=== PATIENT | female | born 1955 | race Two or more races ===

== ENCOUNTER 2018-07-22 01:44 | Emergency (ER) | payer MEDICAID, OTHER ==
[~2018-07-22] VITALS: Ht 152.4 cm; Wt 81.6 kg
[2018-07-22] MEDS ORDERED: GABAPENTIN 300 MG CAP ONE (01:58)
[2018-07-22 02:01] LABS: Basophils # (auto) 0.1 uL; Basophils % (auto) 1.3 % (0.0-2.0); Eosinophils # (auto) 0.5 uL; Eosinophils % (auto) 8.7 % (0.0-7.0); Hematocrit 41.4 % (36.0-46.0); Hemoglobin 14.1 g/dL (12.2-16.2); Lymphocytes # (auto) 1.2 uL; Lymphocytes % (auto) 19.8 % (10.0-50.0); Mean Corpuscular Hemoglobin 30.3 pg (28.0-32.0); Mean Corpuscular Volume 89.1 fL (80.0-100.0); Monocytes # (auto) 0.6 uL; Monocytes % (auto) 10.6 % (0.0-12.0); Neutrophils # (auto) 3.5 uL; Neutrophils % (auto) 59.6 % (37.0-80.0); Nucleated Red Blood Cells % 0.1 %; Platelet Count (auto) 178 10^3/uL (140-450); Red Blood Cells 4.65 10^6/uL (4.0-5.20); Red Cell Distribution Width 13.5 % (11.8-14.3); White Blood Cell 5.9 10^3/uL (4.4-10.8)
[2018-07-22 02:25] LABS: Albumin 3.5 g/dL (3.4-5.0); BUN/Creatinine Ratio 16.3; Calcium 9.1 mg/dL (8.5-10.1); Potassium 4.1 mmol/L (3.5-5.1)
[2018-07-22 02:27] LABS: Bilirubin, Total 0.2 mg/dL (0.2-1.0); Total Protein 7.7 g/dL (6.4-8.2)
[2018-07-22] MEDS ORDERED: CARISOPRODOL 350 MG TAB PO ONE (06:00)
[2018-07-22 07:20] VITALS: BP 138/75
[2018-07-22] MEDS ORDERED: GABAPENTIN 300 MG CAP PO ONE (07:45)
== END 2018-07-22 08:17 | disposition home or self-care (01) ==
LOC: ER 01:44 → EDBD 01:44 → ER 07:30
DX: R25.2 Cramp and spasm (principal); E11.65 Type 2 diabetes mellitus with hyperglycemia; J45.909 Unspecified asthma, uncomplicated; I10 Essential (primary) hypertension; E11.40 Type 2 diabetes mellitus with diabetic neuropathy, unspecified
CPT/HCPCS: 36415; 80053; 80320; 85025

== ENCOUNTER 2019-05-07 01:04 | Emergency (ER) | payer MEDICAID ==
[~2019-05-07] VITALS: Ht 152.4 cm; Wt 81.6 kg
[2019-05-07] MEDS ORDERED: ONDANSETRON HCL 4 MG/2 ML VIAL IV ONE (03:00)
[2019-05-07] MEDS ORDERED: MORPHINE SULFATE 4 MG/ML SYR/VIAL IV ONE (03:00)
[2019-05-07] MEDS ORDERED: HYDROmorphone HCL 2 MG/ML VL IV ONE (03:15)
[2019-05-07 03:17] LABS: Hematocrit 40.2 % (36.0-46.0); Hemoglobin 13.7 g/dL (12.2-16.2); Mean Corpuscular Hemoglobin 30.2 pg (28.0-32.0); Mean Corpuscular Volume 88.9 fL (80.0-100.0); Platelet Count (auto) 173 10^3/uL (140-450); Red Blood Cells 4.52 10^6/uL (4.0-5.20); Red Cell Distribution Width 13.5 % (11.8-14.3); White Blood Cell 5.2 10^3/uL (4.4-10.8)
[2019-05-07 03:21] LABS: Band Neutrophils % (manual) 0; Basophils % (manual) 0 (0.0-2.0); Blast Cells 0; Metamyelocytes % 0; Myelocytes % 0; Promyelocytes % 0; Reactive Lymphocytes 0
[2019-05-07 03:34] LABS: Eosinophils % (manual) 6 (0-7); Lymphocytes % (manual) 42 (10.0-50.0); Monocytes % (manual) 10 (0-12)
[2019-05-07 03:38] LABS: Albumin 3.3 g/dL (3.4-5.0); Calcium 8.5 mg/dL (8.5-10.1)
[2019-05-07 03:40] LABS: BUN/Creatinine Ratio 12.9; Bilirubin, Total 0.4 mg/dL (0.2-1.0); Total Protein 7.5 g/dL (6.4-8.2)
[2019-05-07 06:28] VITALS: BP 112/68
== END 2019-05-07 08:37 | disposition home or self-care (01) ==
LOC: EDBD 01:04 → ER 01:09
DX: S33.5XXA Sprain of ligaments of lumbar spine, initial encounter (principal); J45.909 Unspecified asthma, uncomplicated; E11.9 Type 2 diabetes mellitus without complications; I10 Essential (primary) hypertension; X50.1XXA Overexertion from prolonged static or awkward postures, initial encounter; Y93.89 Activity, other specified; Y92.89 Other specified places as the place of occurrence of the external cause; Y99.8 Other external cause status
CPT/HCPCS: 36415; 72100; 72131; 80053; 82150; 83690; 85007; 85027; 96374; 96375; 99285; J1170; J2405

== ENCOUNTER 2019-06-27 20:53 | Emergency (ER) | payer MEDICAID ==
[~2019-06-27] VITALS: Ht 152.4 cm; Wt 79.4 kg
[2019-06-28 00:27] VITALS: BP 112/58
== END 2019-06-28 00:38 | disposition home or self-care (01) ==
LOC: ER 21:05
DX: S43.402A Unspecified sprain of left shoulder joint, initial encounter (principal); M79.632 Pain in left forearm; M62.838 Other muscle spasm; J45.909 Unspecified asthma, uncomplicated; I10 Essential (primary) hypertension; E11.9 Type 2 diabetes mellitus without complications; W01.0XXA Fall on same level from slipping, tripping and stumbling without subsequent striking against object, initial encounter; Y93.89 Activity, other specified; Y92.89 Other specified places as the place of occurrence of the external cause; Y99.8 Other external cause status
CPT/HCPCS: 73030; 73090

== ENCOUNTER 2019-07-23 09:06 | Inpatient (IN) | payer MEDICAID ==
[2019-07-23] VITALS (9 sets, daily range): BP systolic 123–163; BP diastolic 60–76
[~2019-07-23] VITALS: Ht 152.4 cm; Wt 92.1 kg
[2019-07-23] MEDS ORDERED: CYCL5TAB PO (09:29)
[2019-07-23] MEDS ORDERED: ASPI-231 PO (09:29)
[2019-07-23] MEDS ORDERED: SIMV-8 PO (09:29)
[2019-07-23] MEDS ORDERED: NIFE1TAB30 PO (09:29)
[2019-07-23] MEDS ORDERED: CHOL20007 PO (09:29)
[2019-07-23] MEDS ORDERED: NAP500T PO (09:29)
[2019-07-23] MEDS ORDERED: CLON0.1T PO (09:29)
[2019-07-23] MEDS ORDERED: ROPI0.5T18 PO (09:29)
[2019-07-23] MEDS ORDERED: BACL20TA PO (09:29)
[2019-07-23] MEDS ORDERED: MULT1CAP25 PO (09:29)
[2019-07-23] MEDS ORDERED: LOSA-69 PO (09:29)
[2019-07-23 09:57] LABS: Basophils # (auto) 0 10 ^3/uL (0-0.2); Basophils % (auto) 0.4 % (0.0-2.0); Eosinophils # (auto) 0.4 10 ^3/uL (0-0.8); Eosinophils % (auto) 4.3 % (0.0-7.0); Hematocrit 40.1 % (36.0-46.0); Hemoglobin 13.5 g/dL (12.2-16.2); Lymphocytes # (auto) 1.3 10 ^3/uL (0.4-5.4); Lymphocytes % (auto) 16.1 % (10.0-50.0); Mean Corpuscular Hemoglobin 30.1 pg (28.0-32.0); Mean Corpuscular Hgb Conc. 33.6 g/dL (32.0-36.0); Mean Corpuscular Volume 89.6 fL (80.0-100.0); Monocytes # (auto) 0.7 10 ^3/uL (0-1.3); Monocytes % (auto) 8.4 % (0.0-12.0); Neutrophils # (auto) 5.8 10 ^3/uL (1.6-8.6); Neutrophils % (auto) 70.8 % (37.0-80.0); Nucleated Red Blood Cells % 0.1 %; Platelet Count (auto) 170 10^3/uL (140-450); Red Blood Cells 4.48 10^6/uL (4.0-5.20); Red Cell Distribution Width 13.5 % (11.8-14.3); White Blood Cell 8.1 10^3/uL (4.4-10.8)
[2019-07-23] MEDS ORDERED: SODIUM CHLORIDE 0.9% 1,000 ML IVB ONE (10:06)
[2019-07-23] MEDS ORDERED: SODIUM CHLORIDE 0.9% 1,000 ML IV ONE (10:06)
[2019-07-23 10:14] LABS: Albumin 3.6 g/dL (3.4-5.0); BUN/Creatinine Ratio 17.5; Calcium 8.8 mg/dL (8.5-10.1); Potassium 3.9 mmol/L (3.5-5.1)
[2019-07-23] MEDS ORDERED: IPRATROPIUM BROM 0.5 MG/2.5ML INH SOL NEB ONE (10:15)
[2019-07-23] MEDS ORDERED: ONDANSETRON HCL 4 MG/2 ML VIAL IV ONE (10:15)
[2019-07-23] MEDS ORDERED: FUROSEMIDE 40 MG/4 ML VIAL IV ONE (10:15)
[2019-07-23] MEDS ORDERED: MORPHINE SULF INJ 2 MG/ML SYRINGE 1ML IV ONE (10:15)
[2019-07-23] MEDS ORDERED: ALBUTEROL SULF 2.5 MG/0.5ML(0.5%) NEB SOLN NEB ONE (10:15)
[2019-07-23 10:23] LABS: Bilirubin, Total 0.8 mg/dL (0.2-1.0); Total Protein 7.6 g/dL (6.4-8.2)
[2019-07-23 10:37] LABS: Urine Bacteria FEW /hpf (None Seen); Urine Blood TRACE /uL (Negative); Urine Hyaline Cast FEW /lpf (0 - 2); Urine Mucus FEW (None Seen); Urine Specific Gravity 1.031 (1.001-1.035); Urine WBC 19 /hpf (0 - 5)
[2019-07-23 10:48] LABS: Magnesium 2.3 mg/dL (1.6-2.6)
[2019-07-23] MEDS ORDERED: cefTRIAXone 1GM/50ML D5W 50 ML IV ONE (11:15)
[2019-07-23 11:54] LABS: Alcohol, Urine < 3.0 mg/dL (0-5); Amphetamine Screen, Urine NEGATIVE (NEGATIVE); Barbiturate Scree,Urine NEGATIVE (NEGATIVE); Benzodiazephine Screen, Urine NEGATIVE (NEGATIVE); Cannabinoid Screen, Urine NEGATIVE (NEGATIVE); Cocaine Screen, Urine NEGATIVE (NEGATIVE); Opiate Scree,Urine NEGATIVE (NEGATIVE); Phencyclidine Screen, Urine NEGATIVE (NEGATIVE)
[2019-07-23] MEDS ORDERED: SODIUM CHLORIDE 0.9% 500 ML IV ONE (15:00)
[2019-07-23] MEDS: SODIUM CHLORIDE 0.9% 1,000 ML IV SCH (16:19)
[2019-07-23] MEDS ORDERED: AZITHROMYCIN 500MG/ 250ML 250 ML IV SCH (16:29)
[2019-07-23] MEDS ORDERED: ALBUTEROL SULF 2.5 MG/0.5ML(0.5%) NEB SOLN NEB PRN (16:30)
[2019-07-23] MEDS ORDERED: PROMETHAZINE HCL 25 MG/ML 1ML IV PRN (16:30)
[2019-07-23] MEDS ORDERED: MORPHINE SULF INJ 2 MG/ML SYRINGE 1ML IV PRN ×2 (16:30)
[2019-07-23] MEDS ORDERED: DEXTROSE (50%) 50ML SYRG IV PRN (16:30)
[2019-07-23] MEDS ORDERED: TEMAZEPAM 15 MG CAP PO PRN (16:30)
[2019-07-23] MEDS ORDERED: LABETALOL HCL 5 MG/ML ML 20ML VIAL IV PRN (16:30)
[2019-07-23] MEDS ORDERED: ACETAMINOPHEN 500 MG TAB PO PRN (16:30)
[2019-07-23] MEDS ORDERED: NITROGLYCERIN 0.4 MG SL TAB SL PRN (16:30)
[2019-07-23] MEDS ORDERED: HYDROcodone-ACET 5/325MG TAB PO PRN (16:30)
[2019-07-23] MEDS ORDERED: LACTULOSE 20Gm/30ML SOLN PO PRN ×2 (16:30)
[2019-07-23] MEDS: ACCU-CHEK COMFORT CURVE STRIP VI SCH ×2 (17:00→22:00)
--- NOTE | 2019-07-23 17:15 | NUR ---
Paged call taker Hospitalist Paged MD Layton, as patient became apneic 3 times and de-sat to low 80's and patient not being able to follow commands. Per MD Layton, upgrade patient to ICU. Notified Charge nurse Adrienne. Family informed, will cont to monitor patient. Addendum: 07/23/19 at 2036 by JOANN LEUNG RN RN 1914 time called
[2019-07-23] MEDS: cloNIDine HCL 0.1 MG TAB PO SCH (18:00)
--- NOTE | 2019-07-23 18:00 | NUR ---
Telemetry admit from ER ARMANDO HONEYCUTT admitted to Telemetry unit after SBAR received. Patient oriented to JOANN LEUNG, RN primary RN, unit, room, bed, and unit policies regarding patient care and visiting policy. Patient now on continuous telemetry monitoring, tele box #11 and telemetry reading on arrival to unit is SR. Patient placed on bedside oxygen, weighed by bedscale and encouraged to call if they need something. All questions and concerns addressed, patient verbalized understanding. Patient appears drowsy but arousal to light shaking.
[2019-07-23] MEDS: InsuLIN REG 1unit/0.01ml Soln (100units/ml) SC SCH ×2 (18:21→22:40)
[2019-07-23] MEDS: ENOXAPARIN SOD 30 MG/0.3 ML SYRINGE SC SCH (18:21)
--- NOTE | 2019-07-23 19:00 | NUR ---
Patient complaining of cramping in the legs and is very restless. Administered norco for pain as patient refused morphine. Patient not following responding to simple questions however, not following commands. Paged MD Maria for neuro consult. Per MD Maria, he will come see patient. Will cont to monitor patient.
[2019-07-23 20:48] LABS: INR 1.14 (0.9-1.15)
--- NOTE | 2019-07-23 20:53 | NUR ---
Report endorsed to DISPATCHER AUTOMOBILE RENTALGUY Lowe. Patient will be transferred to room 112. GUY Frazier aware. Karin will cont to monitor patient until transfer to ICU.
[2019-07-23 20:54] LABS: BUN/Creatinine Ratio 17.3; Calcium 8.3 mg/dL (8.5-10.1); Potassium 4.3 mmol/L (3.5-5.1)
--- NOTE | 2019-07-23 20:57 | NUR ---
Med Rec Med Rec not done due to patient not alert. GUY thomas.
[2019-07-23] MEDS ORDERED: LORazepam 2MG/ML-1ML VIAL IV PRN ×2 (21:00)
--- NOTE | 2019-07-23 21:04 | NUR ---
Received call from Basia (daughter) requesting to change password. Attempted to call Son Hussain and Scar to verify. However no response, Will leave password as is.
--- NOTE | 2019-07-23 21:08 | NUR ---
Called Scar to verify no change on password and per , keep password as Scar. Per Scar, no one is authorized to changed password but himself.
--- NOTE | 2019-07-23 21:21 | NUR ---
RECEIVED CALL FROM BOTH DAUGHTER ON DIFFERENT LINES FOR UPDATE ON PATIENT STATUS. FAMILY WAS UPDATED AFTER PASSWORD WAS CONFIRMED. I ASKED BOTH SISTERS TO PLEASE COMMUNICATE WITH EACH OTHER AND HAVE ONE PERSON CALL WHEN THEY NEED UPDATE OR HAVE CONCERNS. THE FAMILY HAS CALLED 5 TIMES WITHIN THE LAST 30 MINUTES FROM DIFFERENT LINES. I EXPLAINED TO THEM THAT THIS IS IMPORTANT IN ORDER TO PROVIDE CARE FOR OUR PATIENTS. FAMILY STATED THEY UNDERSTOOD AND AGREED.
[2019-07-23] MEDS: ATORVASTATIN 20 MG TAB PO SCH (22:00)
[2019-07-23] MEDS ORDERED: BACLOFEN 10 MG TAB PO PRN (22:00)
--- NOTE | 2019-07-23 22:00 | NUR ---
Patient transported to room 112 in ICU. Patient connected to monitors and currently stable at this time. RN will continue to monitor and assess patient.
--- NOTE | 2019-07-23 22:00 | NUR ---
PATIENT OFF FLOOR TRANSFERRED TO ICU WITH FRANK TOVAR. REPORT WAS GIVEN BY DAY SHIFT NURSE CHAYA TOVAR TO RECEIVING NURSE FRANK TOVAR. PATIENT LEFT WITH OXYGEN TANK AND NC AT 3L. TELE BOX WITH FRANK LESTER TO GIVE TO MONITOR TECHS PATIENT LEFT WITH SUPPLEMENTAL CRASH CART MONITOR.
--- NOTE | 2019-07-23 22:15 | NUR ---
RN attempts to speak with patient but patient just moans and doesn't say anything to the nurse. RN will continue to attempt to speak with patient.
--- NOTE | 2019-07-23 23:00 | NUR ---
RN attempted to place a secondary IV into patient but patient moans and pulls extremities away from RN and doesn't say anything but moan and groan. Patient isn't allowing herself to remain still for another IV at this time.
[2019-07-24] VITALS (16 sets, daily range): BP systolic 114–154; BP diastolic 61–104
--- NOTE | 2019-07-24 | NUR ---
Pain: Patient began to yell very load and began very restless and screaming that her leg hurts. Patient was given PRN morphine. Patient's respirations were noted to be 32 at the time and showing no signs of respiratory distress. Addendum: 07/24/19 at 0240 by FRANK NIX RN RN "yell very loud and became very restless"
--- NOTE | 2019-07-24 00:30 | NUR ---
Patient was seen to take off blood pressure cuff. RN replaced BP cuff appropriately.
--- NOTE | 2019-07-24 00:45 | NUR ---
Patient was seen to be restless and moving around in bed and yelling. RN entered room to assess patient and when RN asked patient "What is wrong". Patient doesn't respond or say anything. Patient noted to be laying in bed as if she is asleep. When RN leaves patient's bedside patient begins to move around again and moan. RN repositioned patient and provided reassurance and patient remained laying in bed quite at this time. RN will continue to monitor and assess patient.
--- NOTE | 2019-07-24 01:00 | NUR ---
Patient keeps taking off blood pressure cuff despite RN placing it back on multiple times.
--- NOTE | 2019-07-24 03:00 | NUR ---
RN attempted to place BP cuff on patient but patient begins to moan and take of cuff.
[2019-07-24] MEDS: SODIUM CHLORIDE 0.9% 1,000 ML IV SCH (04:30)
[2019-07-24] MEDS: ACCU-CHEK COMFORT CURVE STRIP VI SCH ×4 (05:46→22:14)
[2019-07-24] MEDS: InsuLIN REG 1unit/0.01ml Soln (100units/ml) SC SCH ×4 (05:47→22:18)
[2019-07-24] MEDS: ALBUTEROL SULF 2.5 MG/0.5ML(0.5%) NEB SOLN NEB SCH ×3 (06:00→22:37)
[2019-07-24] MEDS ORDERED: cefTRIAXone 1GM/50ML D5W 50 ML IV SCH (09:00)
[2019-07-24] MEDS: LOSARTAN POTASSIUM 50 MG TAB PO SCH (10:00)
[2019-07-24] MEDS: ENOXAPARIN SOD 30 MG/0.3 ML SYRINGE SC SCH (10:00)
[2019-07-24] MEDS ORDERED: AZITHROMYCIN 500MG/ 250ML 250 ML IV SCH (10:00)
[2019-07-24] MEDS: ASPirin 81 mg TAB PO SCH (10:00)
[2019-07-24] MEDS: NIFEdipine ER 30 MG TAB PO SCH (10:00)
--- NOTE | 2019-07-24 10:00 | NUR ---
Opening Shift Note Assumed care of patient, FROM NOC GUY MARIE. PATIENT awake and alert ORIENTATED X 3 WITH PERIODS OF INTERMITTENT CONFUSION. LUNGS CLEAR TO ALL MATAMOROS, OXYGEN AT 5 LPM VIA N/C SATURATION 100%. NO APNEA NOTED AT THIS TIME NOR LAST 4 HOURS. CURRENTLY ON ISOLATION TO RULE OUT POSSIBLE COVID. No S/S of distress/SOB or pain. Instructed on POC and to call for assist PRN, will continue to monitor for changes Q1hr and PRN.
--- NOTE | 2019-07-24 12:17 | NUR ---
WOUND CARE NOTE: WOUND CARE IN TO SEE PATIENT PER WOUND CARE REQUEST. PATIENT ADMITTED TO [facility] FOR ALOC, UTI WITH POSSIBLE SEPSIS, AND ENCEPHALOPATHY. PATIENT'S MICHELLE SCORE IS 17. BEDSIDE NURSE NOTED SKIN INTEGRITY ISSUES UP ON ADMISSION. PHOTOGRAPH TAKEN AT THAT TIME FOR REFERENCE. PATIENT HAS 2 SKIN TEARS TO LEFT FOREARM. CLEANSED WOUNDS WITH NORMAL SALINE, PATTED DRY WITH STERILE GAUZE, APPLIED THERAHONEY AND COVERED WITH OPTIFOAM GENTLE DRESSING. PATIENT OLERATED WELL. NO OTHER SKIN INTEGRITY ISSUES AT THIS TIME. RECOMMEND: DAILY/PRN DRESSING CHANGE TO LEFT FOREARM. BID/PRN DRESSING CHANGE TO SACRUM PREVENTATIVE. SKIN/WOUND CARE PLAN. CONTINUED MONITORING BY WOUND CARE TEAM. Addendum: 07/24/19 at 1443 by ANTONI LAM RN RN Amended: Links added.
--- NOTE | 2019-07-24 12:55 | NUR ---
EEG CURRENTLY BEING DONE AT THIS TIME. SEE RESULTS.
--- NOTE | 2019-07-24 13:31 | NUR ---
2-D ECHO BEING DONE AT THIS TIME.
--- NOTE | 2019-07-24 13:36 | NUR ---
SPOKE TO DAUGHTER AVIVA, UPDATED ON PATIENTS CURRENT CONDITION.
[2019-07-24] MEDS ORDERED: OPTISON 3ml Vial for INJ IV ONE (13:38)
--- NOTE | 2019-07-24 14:39 | NUR ---
SWALLOWING EVALUATION BEING DONE. SEE REPORT AND EMR FOR ANY NEW ORDERS.
--- NOTE | 2019-07-24 14:42 | NUR ---
SWALLOW EVALUATED. PATIENT ABLE TO TOLERATE PUREE DIET TEXTURE WITH NECTAR THICKENED LIQUIDS WITH NO OVERT SIGNS OR SYMPTOMS OF ASPIRATION. PATIENT HAS NATURAL TEETH. NURSING REPORTED DIFFICULTY WITH THIN LIQUIDS. EVALUATED HONEY THICK AND NECTAR. ABLE TO TOLERATE NECTAR THICK WITH NO DIFFICULTY. NURSING NOTIFIED.
--- NOTE | 2019-07-24 15:06 | NUR ---
CALLED TO TRY AND GIVE REPORT, RN IS WITH MD AT THIS TIME.
--- NOTE | 2019-07-24 15:36 | NUR ---
[facility] BED on [facility]. All patient personal belongings transferred with patient to receiving floor. Patient care transferred to SUNG TOVAR.
[2019-07-24] MEDS: cefTRIAXone 1GM/50ML D5W 50 ML IV SCH (15:48)
--- NOTE | 2019-07-24 16:02 | NUR ---
ICU patient trans to floor ARMANDO HONEYCUTT admitted to Telemetry unit after SBAR received from GUY York. Patient oriented to Lesli Riley, primary RN, unit, room, bed, and unit policies regarding patient care and visiting hours. Patient now on continuous telemetry monitoring, tele box #68 and telemetry reading on arrival to unit is SR @ 83 BPM. Bed set to lowest position/locked, bedside rail up x2, bed alarm on, call light within reach. Instructed patient to call for assistance. Patient verbalized understanding. Will continue to monitor q1hr and prn.
[2019-07-24] MEDS: cloNIDine HCL 0.1 MG TAB PO SCH (17:48)
--- NOTE | 2019-07-24 18:00 | NUR ---
Renee catheter dc'd Order to discontinue Renee catheter. Renee dc'd with clean technique following deflation of balloon. Patient tolerated well with no complaints of pain. Continue care.
--- NOTE | 2019-07-24 19:55 | NUR ---
Opening Shift Note Assumed care of patient, awake and alert, oriented x 3, re-oriented to siltation, follows direction, clear speech. On room air with even and labored respirations. No S/S of distress/SOB. Patient denies pain. Patient turns independently in bed. Optifoam to left forearm CDI. Bed in lowest locked position with side rails up x 2 and call light within reach, bed alarm on. Instructed on POC and to call for assist PRN, will continue to monitor for changes Q1hr and PRN.
[2019-07-24] MEDS: ATORVASTATIN 20 MG TAB PO SCH (22:00)
[2019-07-25 05:32] VITALS: BP 107/78
[2019-07-25] MEDS: ACCU-CHEK COMFORT CURVE STRIP VI SCH ×3 (05:54→17:27)
[2019-07-25] MEDS: InsuLIN REG 1unit/0.01ml Soln (100units/ml) SC SCH ×3 (06:00→17:00)
[2019-07-25 06:12] LABS: Basophils # (auto) 0 10 ^3/uL (0-0.2); Basophils % (auto) 0.7 % (0.0-2.0); Eosinophils # (auto) 0.3 10 ^3/uL (0-0.8); Eosinophils % (auto) 5.9 % (0.0-7.0); Hematocrit 39.9 % (36.0-46.0); Hemoglobin 13.4 g/dL (12.2-16.2); Lymphocytes # (auto) 1.2 10 ^3/uL (0.4-5.4); Mean Corpuscular Hemoglobin 30.8 pg (28.0-32.0); Mean Corpuscular Hgb Conc. 33.6 g/dL (32.0-36.0); Mean Corpuscular Volume 91.6 fL (80.0-100.0); Monocytes # (auto) 0.6 10 ^3/uL (0-1.3); Monocytes % (auto) 9.4 % (0.0-12.0); Neutrophils # (auto) 3.7 10 ^3/uL (1.6-8.6); Platelet Count (auto) 155 10^3/uL (140-450); Red Blood Cells 4.35 10^6/uL (4.0-5.20); Red Cell Distribution Width 13.3 % (11.8-14.3); White Blood Cell 5.9 10^3/uL (4.4-10.8)
[2019-07-25] MEDS: ALBUTEROL SULF 2.5 MG/0.5ML(0.5%) NEB SOLN NEB SCH ×2 (06:20→14:15)
[2019-07-25 06:28] LABS: Potassium 3.9 mmol/L (3.5-5.1)
[2019-07-25 06:34] LABS: Calcium 8.5 mg/dL (8.5-10.1)
--- NOTE | 2019-07-25 06:56 | NUR ---
Closing note patient resting in bed on room air with even and unlabored respirations, no s/s of distress. Patient was able to use BSC with standby assist, voiding. patient turns independently in bed. Bed in lowest locked position with side rails up x 2 and call light within reach, bed alarm on.
--- NOTE | 2019-07-25 07:35 | NUR ---
OPENING NOTE ASSUMED CARE OF PT. PT ALERT AND ORIENTED. NO S/S OF SOB/DISTRESS NOTED. BED SET TO LOWEST POSITION/LOCKED, BEDSIDE RAILS UP X2, CALL LIGHT WITHIN REACH, BED ALARM ON. INSTRUCTED PATIENT TO CALL FOR ASSISTANCE. UPDATED ON POC. PT VERBALIZED UNDERSTANDING. WILL CONTINUE TO MONITOR Q1HR AND PRN.
[2019-07-25 09:00] VITALS: BP 107/62
[2019-07-25 09:19] LABS: Free T3 2.1 pg/mL (2.3-4.2); Free T4 (Free Thyroxine) 1.07 ng/dL (0.89-1.76)
[2019-07-25] MEDS: cefTRIAXone 1GM/50ML D5W 50 ML IV SCH (09:46)
[2019-07-25] MEDS: ENOXAPARIN SOD 30 MG/0.3 ML SYRINGE SC SCH (09:46)
[2019-07-25] MEDS: ASPirin 81 mg TAB PO SCH (09:46)
[2019-07-25] MEDS: LOSARTAN POTASSIUM 50 MG TAB PO SCH (10:00)
[2019-07-25] MEDS: NIFEdipine ER 30 MG TAB PO SCH (10:00)
--- NOTE | 2019-07-25 11:15 | NUR ---
PT REPORTS THAT SHE JUST WALKED WITH MANAGER IMAGING. ATTEMPT P.T. LATER.
[2019-07-25 13:00] VITALS: BP 139/73
--- NOTE | 2019-07-25 14:02 | NUR ---
Assessment Patient is a 63-year-old female who is alert and oriented. Prior to admission patient lived home with family and functioned independently. Patient informed me she can care for her own ADLs. Patient stated she does not have any medical equipment but would like a walker for home use. Patient stated she would like walker to be deliver to home. Informed patient I will inform nurse regarding order for walker. Per patient she will return home to her prior living arrangements post discharge and family will transport her home. Advised patient there is a social service consult for home health safety evaluation and physical therapy. Informed patient clinical information will be faxed to [facility]. Informed patient she has the right to participate in all discharge planning. Patient verbalized understanding and agreed to discharge plan home. Per Elly with [facility]:) patient has been accepted and service to start within 24-48hrs upon d/c day. Faxed clinical information to [facility] requesting authorization for home health. Informed GUY Ballesteros regarding order for walker. Per GUY Ballesteros she will notify provider. Per [facility] for walker. Case Rebekah Ruiz will obtain authorization for DME. Faxed clinical information to requesting for walker to be deliver to patient home. Addendum: 07/25/19 at 1404 by PERRY NUÑEZ Amended: Links added.
--- NOTE | 2019-07-25 14:17 | NUR ---
I faxed walker order to [facility]-requesting authorization for SG.
--- NOTE | 2019-07-25 14:35 | NUR ---
D/C Planning Obtain authorization from [facility] for [facility] [id number].
[2019-07-25 16:44] VITALS: BP 132/71
[2019-07-25] MEDS: cloNIDine HCL 0.1 MG TAB PO SCH (17:36)
--- NOTE | 2019-07-25 18:23 | NUR ---
DISCHARGE PICTURE TAKEN.
--- NOTE | 2019-07-25 18:39 | NUR ---
NEURO PATIENT IS CLEARED FOR DISCHARGE PER DR. LIANG.
[2019-07-25 18:41] VITALS: BP 132/71
--- NOTE | 2019-07-25 18:54 | NUR ---
ENDORSED CARE TO GUY GRAF. ENDORSED DISCHARGE AND MRSA, TELE BOX IS TO BE REMOVED AND SENT BACK TO ICU.
--- NOTE | 2019-07-25 19:30 | NUR ---
Opening Shift Note Assumed care of patient, awake and alert, oriented x 4, follows direction, clear speech. On room air with even and labored respirations. No S/S of distress/SOB. Patient denies pain. Patient sitting up at edge of bed, steady. Bed in lowest locked position with side rails up x 2 and call light within reach, bed alarm on. Instructed on POC for discharge and to call for assist PRN, will continue to monitor for changes Q1hr and PRN.
--- NOTE | 2019-07-25 20:08 | NUR ---
Discharge instructions given as ordered. Encourage to follow up with PMD as instructed. All questions and concerns addressed. Patient verbalized understanding. Medication reconciliation form completed and copy given to patient. Home medications held in Pharmacy returned to patient. IV removed with catheter intact, pressure dressing applied. Telemetry unit returned to ICU. Patient taken to vehicle via wheelchair with all personal belongings, accompanied by staff. No distress noted at time of departure.
[2019-07-26] MEDS ORDERED: cefTRIAXone 1GM/50ML D5W 50 ML IV SCH (16:00)
== END 2019-07-25 20:08 | disposition home health service (06) | DRG 422 ==
LOC: ER 09:06 → EDBD 09:06 → TELE-EAST 09:07 → ICU WEST 22:10 → TELE-WESTW 07-24 15:26
PROVIDERS: ADMIT Internal Medicine; ATTEND Internal Medicine
DX: E86.0 Dehydration (principal); N17.0 Acute kidney failure with tubular necrosis; G92 Toxic encephalopathy; G93.1 Anoxic brain damage, not elsewhere classified; E87.2 Acidosis; E87.3 Alkalosis; E11.21 Type 2 diabetes mellitus with diabetic nephropathy; N12 Tubulo-interstitial nephritis, not specified as acute or chronic; E11.65 Type 2 diabetes mellitus with hyperglycemia; E11.22 Type 2 diabetes mellitus with diabetic chronic kidney disease; N39.0 Urinary tract infection, site not specified; I12.9 Hypertensive chronic kidney disease with stage 1 through stage 4 chronic kidney disease, or unspecified chronic kidney disease; J45.909 Unspecified asthma, uncomplicated; F17.200 Nicotine dependence, unspecified, uncomplicated; G89.4 Chronic pain syndrome; E78.5 Hyperlipidemia, unspecified; E66.9 Obesity, unspecified; R06.03 Acute respiratory distress; G25.3 Myoclonus; N18.4 Chronic kidney disease, stage 4 (severe); E03.9 Hypothyroidism, unspecified; T50.905A Adverse effect of unspecified drugs, medicaments and biological substances, initial encounter; Z03.818 Encounter for observation for suspected exposure to other biological agents ruled out; Z80.9 Family history of malignant neoplasm, unspecified; Z68.33 Body mass index [BMI] 33.0-33.9, adult
CPT/HCPCS: 36415; 36600; 70450; 70551; 71045; 80048; 80053; 80307; 80329; 81001; 82550; 82805; 82962; 83036; 83605; 83735; 83880; 84439; 84443; 84481; 84484; 85025; 85610; 85652; 87040; 87081; 87086; 87804; 92610; 93005; 93306; 93886; 94640; 95819; 97163; G0378; J0696; J1815; J2405; Q9956

== ENCOUNTER 2019-11-29 13:23 | Emergency (ER) | payer MEDICAID ==
[~2019-11-29] VITALS: Ht 152.4 cm; Wt 86.2 kg
[~2019-11-29 13:23] MED LIST: ASPI-231 PO; BACL20TA PO; CHOL20007 PO; CLON0.1T PO; CYCL5TAB PO; LOSA-69 PO; MULT1CAP25 PO; NAP500T PO; NIFE1TAB30 PO; ROPI0.5T18 PO; SIMV-8 PO
[2019-11-29 14:16] LABS: Basophils # (auto) 0.1 10 ^3/uL (0-0.2); Basophils % (auto) 1.4 % (0.0-2.0); Eosinophils # (auto) 0.3 10 ^3/uL (0-0.8); Eosinophils % (auto) 6.6 % (0.0-7.0); Hemoglobin 13.6 g/dL (12.2-16.2); Lymphocytes # (auto) 1.2 10 ^3/uL (0.4-5.4); Lymphocytes % (auto) 24.7 % (10.0-50.0); Mean Corpuscular Hemoglobin 30.7 pg (28.0-32.0); Mean Corpuscular Hgb Conc. 33.9 g/dL (32.0-36.0); Mean Corpuscular Volume 90.6 fL (80.0-100.0); Monocytes # (auto) 0.4 10 ^3/uL (0-1.3); Monocytes % (auto) 8.5 % (0.0-12.0); Neutrophils # (auto) 2.8 10 ^3/uL (1.6-8.6); Neutrophils % (auto) 58.8 % (37.0-80.0); Nucleated Red Blood Cells % 0.1 %; Platelet Count (auto) 182 10^3/uL (140-450); Red Blood Cells 4.42 10^6/uL (4.0-5.20); Red Cell Distribution Width 13.6 % (11.8-14.3); White Blood Cell 4.8 10^3/uL (4.4-10.8)
[2019-11-29 14:39] LABS: Albumin 3.6 g/dL (3.4-5.0); Anion Gap 4 (5-15); Blood Urea Nitrogen 23 mg/dL (7-18); Calcium 8.7 mg/dL (8.5-10.1); Carbon Dioxide 23 mmol/L (21-32); Chloride 112 mmol/L (98-107); Glucose 204 mg/dL (74-106); Potassium 4.5 mmol/L (3.5-5.1); Sodium 139 mmol/L (136-145)
[2019-11-29 14:46] LABS: Alanine Aminotransferase 24 U/L (13-56); Alkaline Phosphatase 153 U/L (45-117); Aspartate Aminotransferase 22 U/L (15-37); BUN/Creatinine Ratio 12.4; Bilirubin, Total 0.6 mg/dL (0.2-1.0); GFR African American 36 mL/min; GFR Non-African American 29 mL/min; Total Protein 7.4 g/dL (6.4-8.2)
[2019-11-29] MEDS ORDERED: ASPirin 81 mg TAB PO ONE (16:00)
[2019-11-29 16:14] LABS: Urine Bacteria FEW /hpf (None Seen); Urine Blood Negative /uL (Negative); Urine Mucus FEW (None Seen); Urine Specific Gravity 1.016 (1.001-1.035); Urine WBC 5 /hpf (0 - 5)
[2019-11-29 16:26] LABS: Alcohol, Urine < 3.0 mg/dL (0-10); Amphetamine Screen, Urine NEGATIVE (NEGATIVE); Barbiturate Scree,Urine NEGATIVE (NEGATIVE); Benzodiazephine Screen, Urine NEGATIVE (NEGATIVE); Cannabinoid Screen, Urine NEGATIVE (NEGATIVE); Cocaine Screen, Urine NEGATIVE (NEGATIVE); Opiate Scree,Urine NEGATIVE (NEGATIVE); Phencyclidine Screen, Urine NEGATIVE (NEGATIVE)
[2019-11-29] MEDS ORDERED: cefTRIAXone SOD 1,000 MG VL IM ONE (17:45)
[2019-11-29] MEDS ORDERED: HYDROcodone-ACET 5/325MG TAB PO ONE (20:30)
[2019-11-29 21:00] VITALS: BP 152/73
== END 2019-11-29 21:42 | disposition home or self-care (01) ==
LOC: ER 13:23
DX: R07.89 Other chest pain (principal); F41.9 Anxiety disorder, unspecified; J45.909 Unspecified asthma, uncomplicated; E11.65 Type 2 diabetes mellitus with hyperglycemia; I12.9 Hypertensive chronic kidney disease with stage 1 through stage 4 chronic kidney disease, or unspecified chronic kidney disease; E11.22 Type 2 diabetes mellitus with diabetic chronic kidney disease; N18.4 Chronic kidney disease, stage 4 (severe); N39.0 Urinary tract infection, site not specified; Z88.6 Allergy status to analgesic agent; Z79.82 Long term (current) use of aspirin; Z79.899 Other long term (current) drug therapy
CPT/HCPCS: 36415; 71046; 80053; 80307; 81001; 84484; 85025; 93005; 96372; 99285; J0696

== ENCOUNTER 2020-05-03 15:13 | Emergency (ER) | payer MEDICAID ==
[~2020-05-03] VITALS: Ht 152.4 cm; Wt 81.6 kg
[2020-05-03 15:14] VITALS: BP 150/76
[2020-05-03] MEDS ORDERED: KETOROLAC TROMETH 60MG/2ML VIAL IM ONE ×2 (16:00→16:15)
== END 2020-05-03 16:49 | disposition home or self-care (01) ==
LOC: ER 15:13
DX: M17.11 Unilateral primary osteoarthritis, right knee (principal); E66.01 Morbid (severe) obesity due to excess calories; J45.909 Unspecified asthma, uncomplicated; E11.9 Type 2 diabetes mellitus without complications; E78.5 Hyperlipidemia, unspecified; I10 Essential (primary) hypertension; Z68.35 Body mass index [BMI] 35.0-35.9, adult; Z88.6 Allergy status to analgesic agent
CPT/HCPCS: 73562; 99283; J1885

== ENCOUNTER 2020-10-13 12:03 | Emergency (ER) | payer MEDICAID ==
[~2020-10-13] VITALS: Ht 152.4 cm; Wt 81.6 kg
[2020-10-13 13:35] VITALS: BP 140/62
== END 2020-10-13 14:14 | disposition home or self-care (01) ==
LOC: ER 12:03
DX: B37.2 Candidiasis of skin and nail (principal); J45.909 Unspecified asthma, uncomplicated; E11.9 Type 2 diabetes mellitus without complications; E78.5 Hyperlipidemia, unspecified; I10 Essential (primary) hypertension; Z88.5 Allergy status to narcotic agent; Z79.82 Long term (current) use of aspirin; Z79.899 Other long term (current) drug therapy

== ENCOUNTER 2020-11-19 16:32 | Emergency (ER) | payer MEDICAID ==
[~2020-11-19] VITALS: Ht 152.4 cm; Wt 79.4 kg
[~2020-11-19 16:32] MED LIST changes: -ASPI-231 PO; +ASPI1TAB20 PO; +CYCL-837 PO; -CYCL5TAB PO
[2020-11-19 16:34] VITALS: BP 132/62
== END 2020-11-20 21:08 | disposition left against medical advice (07) ==
LOC: ER 16:32
DX: M79.602 Pain in left arm (principal); F41.9 Anxiety disorder, unspecified; J45.909 Unspecified asthma, uncomplicated; E11.9 Type 2 diabetes mellitus without complications; E78.5 Hyperlipidemia, unspecified; I10 Essential (primary) hypertension; Z79.82 Long term (current) use of aspirin; Z79.899 Other long term (current) drug therapy; Z88.5 Allergy status to narcotic agent
CPT/HCPCS: 73060

== ENCOUNTER 2021-02-20 17:51 | Inpatient (IN) | payer MEDICAID ==
[~2021-02-20] VITALS: Ht 152.4 cm; Wt 95.5 kg
[2021-02-20] MEDS ORDERED: ACETAMINOPHEN 325 MG TAB PO ONE (18:30)
[2021-02-20 20:40] LABS: Basophils # (auto) 0.1 10 ^3/uL (0-0.2); Basophils % (auto) 0.7 % (0.0-2.0); Eosinophils # (auto) 0.2 10 ^3/uL (0-0.8); Hematocrit 43.8 % (36.0-46.0); Hemoglobin 14.2 g/dL (12.2-16.2); Lymphocytes # (auto) 0.9 10 ^3/uL (0.4-5.4); Lymphocytes % (auto) 11.8 % (10.0-50.0); Mean Corpuscular Hemoglobin 29.3 pg (28.0-32.0); Mean Corpuscular Hgb Conc. 32.4 g/dL (32.0-36.0); Mean Corpuscular Volume 90.4 fL (80.0-100.0); Monocytes # (auto) 0.5 10 ^3/uL (0-1.3); Monocytes % (auto) 6.7 % (0.0-12.0); Neutrophils # (auto) 6.3 10 ^3/uL (1.6-8.6); Neutrophils % (auto) 78.8 % (37.0-80.0); Nucleated Red Blood Cells % 0.1 %; Red Blood Cells 4.85 10^6/uL (4.0-5.20); Red Cell Distribution Width 13.5 % (11.8-14.3)
[2021-02-20 20:54] LABS: Albumin 3.3 g/dL (3.4-5.0); Calcium 8.7 mg/dL (8.5-10.1); Potassium 4.6 mmol/L (3.5-5.1)
[2021-02-20 21:04] LABS: BUN/Creatinine Ratio 15.1; Bilirubin, Total 0.4 mg/dL (0.2-1.0); Total Protein 7.1 g/dL (6.4-8.2)
[2021-02-20] MEDS ORDERED: DOCUSATE SOD 100 MG CAP PO PRN (22:15)
[2021-02-20] MEDS ORDERED: ONDANSETRON HCL 4 MG/2 ML VIAL IV ONE (22:15)
[2021-02-20] MEDS ORDERED: ONDANSETRON HCL 4 MG/2 ML VIAL IV PRN (22:15)
[2021-02-20] MEDS ORDERED: ACETAMINOPHEN 325 MG TAB PO PRN (22:15)
[2021-02-20] MEDS ORDERED: HYDROmorphone HCL 2 MG/ML VL IV ONE (22:15)
[2021-02-20] MEDS ORDERED: DEXTROSE (50%) 50ML SYRG IV PRN (22:15)
[2021-02-20] MEDS ORDERED: hydrALAZINE HCL 20 MG/ML VL IV PRN (22:15)
[2021-02-21] MEDS ORDERED: NITROGLYCERIN 0.4 MG SL TAB SL PRN (00:30)
[2021-02-21] MEDS ORDERED: MORPHINE SULFATE INJECTION 2 MG/ML SYRG IV PRN (00:30)
[2021-02-21] MEDS: SODIUM CHLORIDE 0.9% 1,000 ML IV SCH ×2 (02:47→15:09)
[2021-02-21 05:35] LABS: Basophils # (auto) 0 10 ^3/uL (0-0.2); Basophils % (auto) 0.8 % (0.0-2.0); Eosinophils # (auto) 0.1 10 ^3/uL (0-0.8); Hematocrit 40.4 % (36.0-46.0); Hemoglobin 13.3 g/dL (12.2-16.2); Lymphocytes % (auto) 17.7 % (10.0-50.0); Mean Corpuscular Hemoglobin 29.5 pg (28.0-32.0); Mean Corpuscular Hgb Conc. 32.8 g/dL (32.0-36.0); Mean Corpuscular Volume 89.9 fL (80.0-100.0); Monocytes # (auto) 0.6 10 ^3/uL (0-1.3); Neutrophils # (auto) 3.9 10 ^3/uL (1.6-8.6); Neutrophils % (auto) 68.5 % (37.0-80.0); Nucleated Red Blood Cells % 0.1 %; Red Blood Cells 4.49 10^6/uL (4.0-5.20); Red Cell Distribution Width 13.4 % (11.8-14.3); White Blood Cell 5.7 10^3/uL (4.4-10.8)
[2021-02-21 05:58] LABS: Potassium 4.5 mmol/L (3.5-5.1)
[2021-02-21 06:07] LABS: BUN/Creatinine Ratio 15.9; Bilirubin, Total 0.6 mg/dL (0.2-1.0); Calcium 8.4 mg/dL (8.5-10.1); Total Protein 6.3 g/dL (6.4-8.2)
[2021-02-21] MEDS: ACCU-CHEK COMFORT CURVE STRIP VI SCH ×4 (07:00→22:00)
[2021-02-21] MEDS: InsuLIN REG 1unit/0.01ml Soln (100units/ml) SC SCH ×4 (07:01→22:00)
[2021-02-21] MEDS: HYDROmorphone HCL 2 MG/ML VL IV PRN ×2 (08:35→09:10)
[2021-02-21] MEDS ORDERED: ASCORBIC ACID 500 MG TAB PO SCH (10:00)
[2021-02-21] MEDS ORDERED: MULTIPLE VITAMIN TAB PO SCH (10:00)
[2021-02-21] MEDS ORDERED: ZINC SULFATE 220mg CAP or TAB PO SCH (10:00)
[2021-02-21] MEDS ORDERED: FAMOTIDINE (10MG/ML) 2ML VL IV SCH (10:00)
[2021-02-21] MEDS: ENOXAPARIN SOD 40 MG/0.4 ML SYRINGE SC SCH (11:11)
[2021-02-21] MEDS: HYDROcodone-ACET 5/325MG TAB PO PRN ×3 (12:36→18:34)
[2021-02-21] MEDS ORDERED: cloNIDine HCL 0.1 MG TAB PO ONE (21:30)
[2021-02-21] MEDS ORDERED: NIFEdipine ER 30 MG TAB PO ONE (21:30)
[2021-02-21 23:12] VITALS: BP 151/68
[2021-02-21 23:20] VITALS: BP 151/69
[2021-02-21] MEDS: ATORVASTATIN 20 MG TAB PO SCH (23:25)
[2021-02-22] MEDS: HYDROmorphone HCL 2 MG/ML VL IV PRN (00:18)
[2021-02-22 05:00] VITALS: BP 140/69
[2021-02-22] MEDS: ACCU-CHEK COMFORT CURVE STRIP VI SCH ×4 (05:56→22:00)
[2021-02-22] MEDS: HYDROcodone-ACET 5/325MG TAB PO PRN ×3 (06:18→21:21)
[2021-02-22] MEDS: InsuLIN REG 1unit/0.01ml Soln (100units/ml) SC SCH ×4 (06:21→22:37)
[2021-02-22 08:05] VITALS: BP 141/74
[2021-02-22] MEDS: CALCIUM W/VIT D (600MG/400IU) TAB PO SCH ×2 (09:16→18:11)
[2021-02-22] MEDS: NIFEdipine ER 30 MG TAB PO SCH (09:18)
[2021-02-22] MEDS: ASPirin-EC 81 mg tab PO SCH (09:18)
[2021-02-22] MEDS: LOSARTAN POTASSIUM 50 MG TAB PO SCH (09:20)
[2021-02-22] MEDS: ENOXAPARIN SOD 40 MG/0.4 ML SYRINGE SC SCH (09:21)
[2021-02-22] MEDS: FAMOTIDINE 20 MG TAB PO SCH (09:29)
[2021-02-22 18:00] VITALS: BP 96/58
[2021-02-22] MEDS ORDERED: cloNIDine HCL 0.1 MG TAB PO SCH (18:00)
[2021-02-22 20:00] VITALS: BP 109/63
[2021-02-22] MEDS: ATORVASTATIN 20 MG TAB PO SCH (21:20)
[2021-02-22 22:00] VITALS: BP 109/63
[2021-02-23] MEDS: HYDROmorphone HCL 2 MG/ML VL IV PRN ×2 (00:25→09:28)
[2021-02-23 05:00] VITALS: BP 118/52
[2021-02-23] MEDS: ACCU-CHEK COMFORT CURVE STRIP VI SCH ×2 (06:56→11:50)
[2021-02-23] MEDS: InsuLIN REG 1unit/0.01ml Soln (100units/ml) SC SCH ×2 (07:02→11:53)
[2021-02-23 08:00] VITALS: BP 109/63
[2021-02-23 08:15] VITALS: BP 128/70
[2021-02-23] MEDS: CALCIUM W/VIT D (600MG/400IU) TAB PO SCH (09:24)
[2021-02-23] MEDS: FAMOTIDINE 20 MG TAB PO SCH (09:26)
[2021-02-23] MEDS: NIFEdipine ER 30 MG TAB PO SCH (09:26)
[2021-02-23] MEDS: ASPirin-EC 81 mg tab PO SCH (09:26)
[2021-02-23] MEDS: LOSARTAN POTASSIUM 50 MG TAB PO SCH (09:26)
[2021-02-23 09:58] VITALS: BP 122/49
[2021-02-23] MEDS ORDERED: ENOXAPARIN SOD 30 MG/0.3 ML SYRINGE SC SCH (10:00)
[2021-02-23] MEDS: HYDROcodone-ACET 5/325MG TAB PO PRN (11:50)
== END 2021-02-23 15:20 | disposition home or self-care (01) | DRG 342 ==
LOC: ER 17:51 → OVERFLOW 02-21 00:20 → WEST WING 02-21 23:00
PROVIDERS: ADMIT Nurse Practitioner Family; ATTEND Internal Medicine
DX: S42.292A Other displaced fracture of upper end of left humerus, initial encounter for closed fracture (principal); J96.10 Chronic respiratory failure, unspecified whether with hypoxia or hypercapnia; E11.21 Type 2 diabetes mellitus with diabetic nephropathy; E87.1 Hypo-osmolality and hyponatremia; N18.4 Chronic kidney disease, stage 4 (severe); E78.5 Hyperlipidemia, unspecified; I10 Essential (primary) hypertension; J45.909 Unspecified asthma, uncomplicated; N28.9 Disorder of kidney and ureter, unspecified; W18.39XA Other fall on same level, initial encounter; Z20.822 Contact with and (suspected) exposure to COVID-19; Z88.6 Allergy status to analgesic agent; Y93.89 Activity, other specified; Y92.89 Other specified places as the place of occurrence of the external cause; Y99.8 Other external cause status; E11.65 Type 2 diabetes mellitus with hyperglycemia
CPT/HCPCS: 36415; 70450; 73030; 73060; 73080; 73090; 73200; 80053; 82962; 83036; 84484; 85025; 87426; 96361; 96372; 96374; 96375; G0378; J1815; J2405; J3490

== ENCOUNTER 2022-03-23 12:10 | Emergency (ER) | payer MEDICAID ==
[~2022-03-23] VITALS: Ht 152.4 cm; Wt 85.0 kg
[~2022-03-23 12:10] MED LIST changes: -BACL20TA PO; -CYCL-837 PO
[2022-03-23 19:55] LABS: Urine Bacteria FEW /hpf (None Seen); Urine Blood Negative /uL (Negative); Urine Mucus FEW (None Seen); Urine Specific Gravity 1.011 (1.001-1.035); Urine WBC 12 /hpf (0 - 5)
[2022-03-23] MEDS ORDERED: CYCL-837 PO (23:40)
[2022-03-23] MEDS ORDERED: SULF800T7 PO (23:40)
[2022-03-23] MEDS ORDERED: cefTRIAXone SOD 1,000 MG VL IM ONE (23:45)
[2022-03-24 01:00] VITALS: BP 132/62
== END 2022-03-24 04:24 | disposition home or self-care (01) ==
LOC: ER 12:10
DX: M54.50 Low back pain, unspecified (principal); G89.29 Other chronic pain; N39.0 Urinary tract infection, site not specified; J45.909 Unspecified asthma, uncomplicated; E11.9 Type 2 diabetes mellitus without complications; E78.5 Hyperlipidemia, unspecified; I10 Essential (primary) hypertension; Z88.2 Allergy status to sulfonamides
CPT/HCPCS: 81001; 96372; 99283; J0696

== ENCOUNTER 2022-04-10 10:21 | Emergency (ER) | payer MEDICAID ==
[~2022-04-10] VITALS: Ht 154.9 cm; Wt 77.0 kg
[~2022-04-10 10:21] MED LIST changes: +CYCL-837 PO; +SULF800T7 PO
[2022-04-10] MEDS ORDERED: HYDROmorphone HCL 2 MG/ML VL/or syr IV ONE (11:30)
[2022-04-10] MEDS ORDERED: ONDANSETRON HCL 4 MG/2 ML VIAL ONE (11:45)
[2022-04-10] MEDS ORDERED: ONDANSETRON HCL 4 MG/2 ML VIAL IV ONE (12:00)
[2022-04-10] MEDS ORDERED: ETOMIDATE (2MG/ML) 20ML VIAL IV ONE (15:30)
[2022-04-10] MEDS ORDERED: KETOROLAC TROMETH 30 MG/ML 1ML VIAL IV ONE (15:30)
[2022-04-10 15:53] LABS: Basophils # (auto) 0 10 ^3/uL (0-0.2); Basophils % (auto) 0.5 % (0.0-2.0); Eosinophils # (auto) 0.1 10 ^3/uL (0-0.8); Hemoglobin 12.2 g/dL (12.2-16.2); Lymphocytes # (auto) 0.8 10 ^3/uL (0.4-5.4); Lymphocytes % (auto) 9.2 % (10.0-50.0); Mean Corpuscular Hemoglobin 31.2 pg (28.0-32.0); Mean Corpuscular Hgb Conc. 33.7 g/dL (32.0-36.0); Mean Corpuscular Volume 92.5 fL (80.0-100.0); Monocytes # (auto) 0.7 10 ^3/uL (0-1.3); Monocytes % (auto) 7.9 % (0.0-12.0); Neutrophils # (auto) 7.5 10 ^3/uL (1.6-8.6); Neutrophils % (auto) 81.4 % (37.0-80.0); Nucleated Red Blood Cells % 0.1 %; Red Cell Distribution Width 13.1 % (11.8-14.3); White Blood Cell 9.2 10^3/uL (4.4-10.8)
[2022-04-10 16:07] LABS: Albumin 3.2 g/dL (3.4-5.0); BUN/Creatinine Ratio 11.2; Calcium 8.6 mg/dL (8.5-10.1); Potassium 5.5 mmol/L (3.5-5.1)
[2022-04-10 16:10] LABS: Bilirubin, Total 0.4 mg/dL (0.2-1.0); Total Protein 6.5 g/dL (6.4-8.2)
[2022-04-10] MEDS ORDERED: HYDR1TAB97 PO (17:58)
[2022-04-10 18:00] VITALS: BP 113/60
== END 2022-04-10 18:01 | disposition home or self-care (01) ==
LOC: ER 10:21 → EDBD 10:21 → ER 18:01
DX: S42.392A Other fracture of shaft of left humerus, initial encounter for closed fracture (principal); I10 Essential (primary) hypertension; E11.9 Type 2 diabetes mellitus without complications; E78.5 Hyperlipidemia, unspecified; J45.909 Unspecified asthma, uncomplicated; Z79.82 Long term (current) use of aspirin; Z79.899 Other long term (current) drug therapy; Z88.5 Allergy status to narcotic agent; W18.39XA Other fall on same level, initial encounter; Y93.89 Activity, other specified; Y92.89 Other specified places as the place of occurrence of the external cause; Y99.8 Other external cause status
CPT/HCPCS: 24500; 36415; 73060; 73070; 73090; 73110; 73120; 80053; 85025; 86850; 86900; 86901; 96374; 96375; 99152; 99285; J1170; J1885; J2405; J7030

== ENCOUNTER → 2022-09-02 | Outpatient (CLI) | payer OTHER, MEDICAID ==
[~2022-09-02] MED LIST changes: +HYDR1TAB97 PO; -LOSA-69 PO; +LOSA50TA46 PO; -ROPI0.5T18 PO; +ROPI0.5T4 PO; -SIMV-8 PO; +SIMV20TA20 PO; -SULF800T7 PO
[2022-09-02 13:47] LABS: Basophils # (auto) 0.1 10 ^3/uL (0-0.2); Basophils % (auto) 1.1 % (0.0-2.0); Eosinophils # (auto) 0.3 10 ^3/uL (0-0.8); Eosinophils % (auto) 4.8 % (0.0-7.0); Hematocrit 36.2 % (36.0-46.0); Hemoglobin 11.9 g/dL (12.2-16.2); Lymphocytes # (auto) 1.2 10 ^3/uL (0.4-5.4); Lymphocytes % (auto) 19.2 % (10.0-50.0); Mean Corpuscular Hemoglobin 28.8 pg (28.0-32.0); Mean Corpuscular Hgb Conc. 32.9 g/dL (32.0-36.0); Mean Corpuscular Volume 87.7 fL (80.0-100.0); Monocytes # (auto) 0.7 10 ^3/uL (0-1.3); Monocytes % (auto) 11.1 % (0.0-12.0); Neutrophils % (auto) 63.8 % (37.0-80.0); Nucleated Red Blood Cells % 0.1 %; Red Blood Cells 4.13 10^6/uL (4.0-5.20); Red Cell Distribution Width 14.9 % (11.8-14.3); White Blood Cell 6.3 10^3/uL (4.4-10.8)
[2022-09-02 14:04] LABS: Albumin 3.4 g/dL (3.4-5.0); Calcium 8.7 mg/dL (8.5-10.1); Potassium 4.3 mmol/L (3.5-5.1)
[2022-09-02 14:09] LABS: Bilirubin, Total 0.3 mg/dL (0.2-1.0); CRP High Sensitivity 0.5 mg/dL (< 0.3); Total Protein 7.3 g/dL (6.4-8.2)
== END | disposition home or self-care (01) ==
LOC: LAB 13:10
PROVIDERS: ATTEND Internal Medicine Infectious Disease
DX: I10 Essential (primary) hypertension (principal)
CPT/HCPCS: 36415; 80053; 80202; 85025; 85652; 86141

== ENCOUNTER 2022-09-04 12:15 | Emergency (ER) | payer OTHER, MEDICAID ==
[~2022-09-04] VITALS: Ht 152.4 cm; Wt 77.7 kg
[2022-09-04] MEDS ORDERED: SODIUM CHLORIDE 0.9% 1,000 ML IV ONE (13:00)
[2022-09-04 13:28] LABS: Basophils # (auto) 0 10 ^3/uL (0-0.2); Basophils % (auto) 1.2 % (0.0-2.0); Eosinophils # (auto) 0.1 10 ^3/uL (0-0.8); Eosinophils % (auto) 3.3 % (0.0-7.0); Hematocrit 33.5 % (36.0-46.0); Hemoglobin 10.8 g/dL (12.2-16.2); Lymphocytes # (auto) 0.5 10 ^3/uL (0.4-5.4); Lymphocytes % (auto) 13.4 % (10.0-50.0); Mean Corpuscular Hemoglobin 28.6 pg (28.0-32.0); Mean Corpuscular Hgb Conc. 32.3 g/dL (32.0-36.0); Mean Corpuscular Volume 88.7 fL (80.0-100.0); Monocytes # (auto) 0.5 10 ^3/uL (0-1.3); Monocytes % (auto) 12.5 % (0.0-12.0); Neutrophils # (auto) 2.8 10 ^3/uL (1.6-8.6); Neutrophils % (auto) 69.6 % (37.0-80.0); Nucleated Red Blood Cells % 0.1 %; Red Blood Cells 3.78 10^6/uL (4.0-5.20); Red Cell Distribution Width 14.8 % (11.8-14.3)
[2022-09-04 13:50] LABS: Calcium 7.9 mg/dL (8.5-10.1); Magnesium 2.4 mg/dL (1.6-2.6); Potassium 4.3 mmol/L (3.5-5.1)
[2022-09-04 13:56] LABS: BUN/Creatinine Ratio 16.7 (10.0-20.0); Bilirubin, Total 0.2 mg/dL (0.2-1.0); Total Protein 6.3 g/dL (6.4-8.2)
[2022-09-04 14:55] LABS: Urine Bacteria FEW /hpf (None Seen); Urine Blood Negative /uL (Negative); Urine Specific Gravity 1.022 (1.001-1.035); Urine WBC <1 /hpf (0 - 5)
[2022-09-04 19:07] VITALS: BP 153/78
== END 2022-09-04 19:16 | disposition home or self-care (01) ==
LOC: ER 12:15 → EDBD 12:15 → ER 19:16
DX: L03.113 Cellulitis of right upper limb (principal); E11.649 Type 2 diabetes mellitus with hypoglycemia without coma; J45.909 Unspecified asthma, uncomplicated; E78.5 Hyperlipidemia, unspecified; I10 Essential (primary) hypertension; Z98.51 Tubal ligation status; Z88.6 Allergy status to analgesic agent
CPT/HCPCS: 36415; 71045; 80053; 81001; 83605; 83735; 84484; 85025; 87040; 93005; 96360; 99285; J7030

== ENCOUNTER 2023-04-18 14:10 | Emergency (ER) | payer OTHER, MEDICAID ==
[~2023-04-18] VITALS: Ht 152.4 cm; Wt 88.8 kg
[2023-04-18 17:03] LABS: Basophils # (auto) 0.1 10 ^3/uL (0-0.2); Eosinophils # (auto) 0.2 10 ^3/uL (0-0.8); Eosinophils % (auto) 3.8 % (0.0-7.0); Hematocrit 38.9 % (36.0-46.0); Hemoglobin 12.8 g/dL (12.2-16.2); Lymphocytes # (auto) 0.9 10 ^3/uL (0.4-5.4); Lymphocytes % (auto) 14.2 % (10.0-50.0); Mean Corpuscular Hemoglobin 29.6 pg (28.0-32.0); Mean Corpuscular Hgb Conc. 32.9 g/dL (32.0-36.0); Mean Corpuscular Volume 90.1 fL (80.0-100.0); Monocytes # (auto) 0.6 10 ^3/uL (0-1.3); Monocytes % (auto) 8.5 % (0.0-12.0); Neutrophils # (auto) 4.8 10 ^3/uL (1.6-8.6); Neutrophils % (auto) 72.5 % (37.0-80.0); Nucleated Red Blood Cells % 0.1 %; Red Blood Cells 4.32 10^6/uL (4.0-5.20); Red Cell Distribution Width 13.1 % (11.8-14.3); White Blood Cell 6.6 10^3/uL (4.4-10.8)
[2023-04-18 17:16] LABS: Chloride 107 mmol/L (98-107); Potassium 4.4 mmol/L (3.5-5.1); Sodium 137 mmol/L (136-145)
[2023-04-18 17:17] LABS: Anion Gap 5 (5-15); Carbon Dioxide 25 mmol/L (20-30)
[2023-04-18 17:18] LABS: Calcium 8.6 mg/dL (8.7-10.4)
[2023-04-18 17:21] LABS: Uric Acid 4.8 mg/dL (3.1-7.8)
[2023-04-18 17:22] LABS: BUN/Creatinine Ratio 14.8 (10.0-20.0); Blood Urea Nitrogen 25 mg/dL (9-23); Glucose 228 mg/dL (74-106)
[2023-04-18] MEDS ORDERED: TRAM50TA2 PO (17:44)
[2023-04-18] MEDS ORDERED: HYDROcodone-ACET 5/325MG TAB PO ONE (17:45)
[2023-04-18] MEDS ORDERED: DexAMETHasone SOD PHOS 4 MG/1ML SDV INJ IM ONE (17:45)
[2023-04-18 17:58] VITALS: BP 138/68; PULSE 84; RESP 16; TEMP 97.8; O2SAT 97
== END 2023-04-18 17:40 | disposition home or self-care (01) ==
LOC: ER 14:10
DX: M25.462 Effusion, left knee (principal); M17.12 Unilateral primary osteoarthritis, left knee; E11.9 Type 2 diabetes mellitus without complications; E78.5 Hyperlipidemia, unspecified; I10 Essential (primary) hypertension; J45.909 Unspecified asthma, uncomplicated; Z98.51 Tubal ligation status; Z88.6 Allergy status to analgesic agent
CPT/HCPCS: 36415; 73562; 80048; 84550; 85025; 93971

== ENCOUNTER 2024-06-11 04:57 | Inpatient (IN) | payer OTHER, MEDICAID ==
[~2024-06-11] VITALS: Ht 152.4 cm; Wt 95.0 kg
[2024-06-11] VITALS (8 sets, daily range): BP systolic 121–149; BP diastolic 51–59; PULSE 62–85; RESP 14–22; TEMP 98.1–98.5; O2SAT 93–96
[~2024-06-11 04:57] MED LIST changes: +ALBU108A5 INH; +HYDR-4072 PO; +INS7030I SC; +INSU1INJ19 SC; +LOSA-534 PO; -LOSA50TA46 PO; +ROPI0.5T26 PO; -ROPI0.5T4 PO; +TEMA15CA PO; +TRI05TP TOP; +TRIO1TP TOP
--- NOTE | 2024-06-11 05:14 | ED.PDOC ---
History of Present Illness HPI Comments 68-year-old female brought in by EMS presents with a chief complaint of chest pain, abdominal pain, nausea, and vomiting x 1 hour ago. Patient states that her pain is localized to her epigastric region/sternal region, nonradiating, and describes as pressure/tightness sensation. Patient mentions that her pain is currently 10/10. Patient was given 324mg ASA and 0.4 NTG by EMS. No other symptoms or modifying factors present at this time. Chief Complaint: Chest Pain Time Seen by MD: 05:05 Primary Care Provider: MARIAM Garcia Notes: Medications, Allergies Allergies: Coded Allergies: Morphine (Verified Allergy, Unknown, 11/29/19) Home Meds Active Scripts Hydrocodone-Acetaminophen (Hydrocodone/Acetaminophen 5-325 mg) 1 Tab Tab, 1 TAB PO [id number] PRN for 3 Days, #6 TAB Prov:KENZIE OJEDA MD 04/10/22 Cyclobenzaprine Hcl (Cyclobenzaprine Hcl) 5 Mg Tab, 1 TAB PO QPM PRN, #14 TAB 0 Refills Prov:BEVERLY DUPREE 03/23/22 Reported Medications Multiple Vitamins W/ Minerals (Hair/Skin/Nails) 1 Cap Cap, 1 CAP PO, CAP 07/23/19 Nifedipine (Nifedipine Er) 60 Mg Tab, 1 TAB PO DAILY, #30 TAB 5 Refills 07/23/19 Simvastatin (Simvastatin) 20 Mg Tab, 1 TAB PO QPM, #30 TAB 5 Refills 07/23/19 Losartan Potassium (Losartan Potassium) 50 Mg Tab, 1 TAB PO DAILY, #30 TAB 5 Refills 07/23/19 Clonidine Hydrochloride (Clonidine Hcl) 0.1 Mg Tab, 1 TAB PO QPM, #30 TAB 2 Refills 07/23/19 Ropinirole Hydrochloride (Ropinirole Hcl) 0.5 Mg Tab, 0.5 MG PO HS, TAB 07/23/19 Cholecalciferol (VITAMIN D3) 2,000 Unit Tab, 0.5 TAB PO DAILY, #30 TAB 5 Refills 07/23/19 Naproxen (NAPROSYN TABLET) 500 Mg Tb, 1 TAB PO BID, #60 TAB 1 Refill 07/23/19 Aspirin (Aspir-81) 81 Mg Tab, 1 TAB PO DAILY, #30 TAB 5 Refills 07/23/19 Information Source: Patient, Emergency Med Personnel Mode of Arrival: EMS Severity: Moderate Timing: Hours Duration: Since onset Prehospital treatment: ASA, NTG Past Medical History PAST MEDICAL HISTORY: Asthma, DM, High Lipids, HTN Surgical History: , Tubal Ligation RESIDENT CARE AID History: No Pertinent RESIDENT CARE AID History Family History Family History: Reviewed,noncontributory to illness, Family hx of DM, Family hx of Cancer, Family hx of heart brock Social History Smoker: Non-Smoker Alcohol: Denies ETOH Use Drugs: Denies Drug Use Lives In: Home Constitutional: denies: chills, diaphoresis, fatigue, fever, malaise, sweats, weakness, others EENTM: denies: blurred vision, double vision, ear bleeding, ear discharge, ear drainage, ear pain, ear ringing, eye pain, eye redness, hearing loss, mouth pain, mouth swelling, nasal discharge, nose bleeding, nose congestion, nose pain, photophobia, tearing, throat pain, throat swelling, voice changes, others Respiratory: denies: cough, hemoptysis, orthopnea, SOB at rest, shortness of breath, SOB with excertion, stridor, wheezing, others Cardiovascular: reports: chest pain; denies: dizzy spells, diaphoresis, Dyspnea on exertion, edema, irregular heart beat, left arm pain, lightheadedness, palpitations, PND, syncope, others Gastrointestinal: reports: abdominal pain, nausea, vomiting; denies: abdomen distended, blood streaked bowels, constipated, diarrhea, dysphagia, difficulty swallowing, hematemesis, melena, poor appetite, poor fluid intake, rectal bleeding, rectal pain, others Genitourinary: denies: abnormal vagina bleeding, burning, dyspareunia, dysuria, flank pain, frequency, hematuria, incontinence, pain, , vagina discharge, urgency, others Neurological: denies: dizziness, fainting, headache, left sided numbness, left sided weakness, numbness, paresthesia, pre-existing deficit, right sided numbness, right sided weakness, seizure, speech problems, tingling, tremors, weakness, others Musculoskeletal: denies: back pain, gout, joint pain, joint swelling, muscle pain, muscle stiffness, neck pain, others Integumetry: denies: bruises, change in color, change in hair/nails, dryness, laceration, lesions, lumps, rash, wounds, others Allergic/Immunocompromised: denies: Difficulty Healing, Frequent Infections, Hives, Itching, others Hematologic/Lymphatic: denies: anemia, blood clots, easy bleeding, easy bruising, swollen glands, others Endocrine: denies: excessive hunger, excessive sweating, excessive thirst, excessive urination, flushing, intolerance to cold, intolerance to heat, unexplained weight gain, unexplained weight loss, others Psychiatric: denies: anxiety, bipolar disorder, depression, hopeless, panic disorder, schizophrenia, sleepless, suicidal, others All Other Systems: Reviewed and Negative Physical Exam General Appearance: No Apparent Distress, Normal HEENT: Normal ENT Inspection, Pharynx Normal, TMs Normal Neck: Full Range of Motion, Non-Tender, Normal, Normal Inspection Respiratory: Chest Non-Tender, Lungs Clear, No Accessory Muscle Use, No Respiratory Distress, Normal Breath Sounds Cardiovascular: No Edema, No JVD, No Murmur, No Gallop, Normal Peripheral Pulses, Regular Rate/Rhythm Breast Exam: Deferred Gastrointestinal: No Organomegaly, Non Tender, No Pulsatile Mass, Normal Bowel Sounds, Soft Genitalia: Deferred Pelvic: Deferred Rectal: Deferred Extremities: No calf tenderness, Normal capillary refill, Normal inspection, Normal range of motion, Non-tender, No pedal edema Musculoskeletal : Apperance: Normal Neurologic: Alert, invertebrate paleontologist II-XII nml as Tested, No Motor Deficits, Normal Affect, Normal Mood, No Sensory Deficits Cerebellar Function: Normal Reflexes: Normal Skin: Dry, Normal Color, Warm Lymphatic: No Adenopathy Was a procedure done? Was a procedure done?: No Differential Dx Considerations may include: ACS, CVA, electrolyte AMA, viral syndrome, gastritis X-Ray, Labs, Meds, VS Vital Signs Date Time Temp Pulse Resp B/P (MAP) Pulse Ox O2 Delivery O2 Flow Rate FiO2 06/11/24 07:59 76 06/11/24 07:48 98.3 80 22 139/55 (83) 94 98.3 06/11/24 06:00 71 06/11/24 05:30 69 22 95 Room Air* 0 21 06/11/24 05:30 98.3 69 22 129/56 (80) 95 98.3 06/11/24 05:01 98.7 88 24 107/56 (73) 96 98.7 06/11/24 05:00 58 Lab Test 06/11/24 08:10 06/11/24 06:06 06/11/24 05:10 Range/Units Troponin I High Sensitivity Pending < 3 L 4 </=34 ng/L White Blood Count 10.3 4.4-10.8 10^3/uL Red Blood Count 4.44 4.0-5.20 10^6/uL Hemoglobin 13.7 12.2-16.2 g/dL Hematocrit 40.1 36.0-46.0 % Mean Corpuscular Volume 90.4 80.0-100.0 fL Mean Corpuscular Hemoglobin 30.9 28.0-32.0 pg Mean Corpuscular Hemoglobin Concent 34.1 32.0-36.0 g/dL Red Cell Distribution Width 13.4 11.8-14.3 % Platelet Count 199 140-450 10^3/uL Mean Platelet Volume 10.0 6.9-10.8 fL Neutrophils (%) (Auto) 73.9 37.0-80.0 % Lymphocytes (%) (Auto) 13.8 10.0-50.0 % Monocytes (%) (Auto) 9.0 0.0-12.0 % Eosinophils (%) (Auto) 2.5 0.0-7.0 % Basophils (%) (Auto) 0.8 0.0-2.0 % Neutrophils # (Auto) 7.6 1.6-8.6 10 ^3/uL Lymphocytes # (Auto) 1.4 0.4-5.4 10 ^3/uL Monocytes # (Auto) 0.9 0-1.3 10 ^3/uL Eosinophils # (Auto) 0.3 0-0.8 10 ^3/uL Basophils # (Auto) 0.1 0-0.2 10 ^3/uL Nucleated Red Blood Cells 0.0 % Sodium Level 141 136-145 mmol/L Potassium Level 3.5 3.5-5.1 mmol/L Chloride Level 106 98-107 mmol/L Carbon Dioxide Level 24 20-31 mmol/L Anion Gap 11 5-15 Blood Urea Nitrogen 26 H 9-23 mg/dL Creatinine 1.92 H 0.550-1.02 mg/dL Glomerular Filtration Rate Calc 28 >90 mL/min BUN/Creatinine Ratio 13.5 10.0-20.0 Serum Glucose 92 74-106 mg/dL Calcium Level 9.5 8.7-10.4 mg/dL Total Bilirubin 0.5 0.2-1.0 mg/dL Aspartate Amino Transferase (AST) 86 H 13-40 U/L Alanine Aminotransferase (ALT) 30 7-40 U/L Alkaline Phosphatase 137 H 46-116 U/L Total Protein 7.0 5.7-8.2 g/dL Albumin 4.2 3.2-4.8 g/dL Lipase 35 12-53 U/L Current Medications Medications (Trade) Dose Ordered Sig/Pippa Route Start Time Stop Time Status Last Admin Al Hydrox/Mg Hydrox/Simethicone (Maalox Plus) 15 ml ONCE ONCE PO 06/11/24 05:45 06/11/24 05:46 DC 06/11/24 05:59 Sodium Chloride 1,000 ml @ 1,000 mls/hr Q1H ONCE IV 06/11/24 06:00 06/11/24 06:59 DC 06/11/24 06:21 Time of 1ST Reevaluation: 08:23 Reevaluation 1ST: Improved Patient Education/Counseling: Diagnosis, Treatment Family Education/Counseling: No Family Present Departure 1 Departure Time of Disposition: 08:23 (Patient presented with chest pain that was concern ing for possible STEMI, ACS, PE, Pneumonia, Muscle Strain, COPD, Dissection. Data: 1. I ordered and reviewed the result of at least 3 labs including a CBC, BMP, and Troponin. 2. I independently interpreted the following tests: EKG which shows sinus rhythm and Chest X-ray which shows benign chest.Risk:This patient has a high risk of morbidity due to further diagnostic testing or treatment and may suffer from an acute cardiac or respiratory disorder. Workup reveals concern for ACS and patient should be admitted for further workup and possible expert consultation. ) Impression: Primary Impression: Acute chest pain Disposition: ADMITTED INPATIENT Admit to: Med Surg Condition: Serious Critical Care Note Critical Care Time?: Yes Critical care comment: Acute chest pain Authorized and Performed by: Kimberlyn Lr MD Total critical care time: Approximately 38 minutes Due to a high probability of clinically significant, life threatening deterioration, the patient required my highest level of preparedness to intervene emergently and I personally spent this critical care time directly and personally managing the patient. This critical care time included obtaining a history; examining the patient; pulse oximetry; ordering and review of studies; arranging urgent treatment with development of a management plan; evaluation of patient's response to treatment; frequent reassessment; and, discussions with other providers. This critical care time was performed to assess and manage the high probability of imminent, life-threatening deterioration that could result in multi-organ failure. It was exclusive of separately billable procedures and treating other patients and teaching time. Please see my other sections and the rest of the note for further information on patient assessment and treatment. Stability Stability form required: No Heart Score Heart Score: Heart Score Response (Comments) Value History Moderate Suspicious 1 EKG Repolarization Disturb 1 Age >65 2 Risk Factors >3 or Hx ASHD 2 Troponin 1-2 x's Normal limit 1 Total 7 I personally scribed for OSIRIS MCKEON MD ([email or web address]) on 06/11/24 at 05:14. Electronically submitted by Keaton Morris ([email or web address]). OSIRIS MCKEON MD Jun 11, 2024 05:14 KIMBERLYN LR MD Jun 11, 2024 08:24
[2024-06-11 05:45] LABS: Basophils # (auto) 0.1 10 ^3/uL (0-0.2); Basophils % (auto) 0.8 % (0.0-2.0); Eosinophils # (auto) 0.3 10 ^3/uL (0-0.8); Eosinophils % (auto) 2.5 % (0.0-7.0); Hematocrit 40.1 % (36.0-46.0); Hemoglobin 13.7 g/dL (12.2-16.2); Lymphocytes # (auto) 1.4 10 ^3/uL (0.4-5.4); Lymphocytes % (auto) 13.8 % (10.0-50.0); Mean Corpuscular Hemoglobin 30.9 pg (28.0-32.0); Mean Corpuscular Hgb Conc. 34.1 g/dL (32.0-36.0); Mean Corpuscular Volume 90.4 fL (80.0-100.0); Monocytes # (auto) 0.9 10 ^3/uL (0-1.3); Neutrophils # (auto) 7.6 10 ^3/uL (1.6-8.6); Neutrophils % (auto) 73.9 % (37.0-80.0); Platelet Count (auto) 199 10^3/uL (140-450); Red Blood Cells 4.44 10^6/uL (4.0-5.20); Red Cell Distribution Width 13.4 % (11.8-14.3); White Blood Cell 10.3 10^3/uL (4.4-10.8)
[2024-06-11] MEDS: FAMOTIDINE (10MG/ML) 2ML VL IV ONE (05:45)
[2024-06-11 05:51] LABS: Alanine Aminotransferase 30 U/L (7-40); Anion Gap 11 (5-15); BUN/Creatinine Ratio 13.5 (10.0-20.0); Calcium 9.5 mg/dL (8.7-10.4); Carbon Dioxide 24 mmol/L (20-31); Chloride 106 mmol/L (98-107); Glucose 92 mg/dL (74-106); Lipase 35 U/L (12-53); Sodium 141 mmol/L (136-145)
[2024-06-11] MEDS: MORPHINE SULFATE 4 MG/ML SYR/VIAL IV ONE (05:51)
[2024-06-11 05:52] LABS: Albumin 4.2 g/dL (3.2-4.8); Bilirubin, Total 0.5 mg/dL (0.2-1.0)
[2024-06-11 05:53] LABS: Alkaline Phosphatase 137 U/L (46-116); Aspartate Aminotransferase 86 U/L (13-40); Blood Urea Nitrogen 26 mg/dL (9-23); Potassium 3.5 mmol/L (3.5-5.1)
[2024-06-11] MEDS: ONDANSETRON HCL 4 MG/2 ML VIAL IV ONE (05:54)
[2024-06-11] MEDS: MAALOX PLUS or MAALOX 30 ML PO ONE (05:59)
--- NOTE | 2024-06-11 06:08 | ECG ---
[facility] Test Date: 2024-06-11 Test Time: 05:00:50 Pat Name: ARMANDO HONEYCUTT Department: ED Room: 0251T Gender: F Engine Specialist: juanito : 1955 Requested By: OSIRIS MCKEON Order Number: [id number] Reading MD: Lonnie Calvert Measurements Intervals [place] Rate: 58 P: 43 [place]: 157 QRS: 60 QRSD: 128 T: 109 QT: 427 QTc: 420 Interpretive Statements Sinus rhythm Nonspecific intraventricular conduction delay Nonspecific T abnormalities, lateral leads Electronically Signed On 06-11-2024 15:12:58 PDT by Lonnie Calvert Please click the below link to view image of tracing.
[2024-06-11] MEDS: SODIUM CHLORIDE 0.9% 1,000 ML IV ONE (06:21)
--- NOTE | 2024-06-11 07:37 | DVH ---
Indication: abd pain Technique: CT axial images of the abdomen and pelvis are obtained without contrast. Coronal and sagit shantal reformats were obtained. Radiation Dose Information: CTDI volume is 24.67 mGy. Dose-length product is 1292.14 mGy*cm Comparison: None FINDINGS: There is limited interpretation of the abdomen and pelvis without administration of intravenous contr ast. The lung bases demonstrate atelectasis. Adrenal glands, spleen, pancreas unremarkable. Liver is unremarkable in shape. Cholelithiasis. There is no hydronephrosis/nephrolithiasis. Stomach is partially distended. Small bowel loops are normal in caliber. Moderate volume stool throughout the colon. There are no secondary signs for appendicitis. Abdominal aortic atherosclerotic disease. Bladder is partially distended. No free pelvic fluid. Over umbilical ventral wall hernia measuring 15.4 x 5.0 cm. No aggressive osseous process. [id number] thoracolumbar degenerative disc disease. IMPRESSION: 1. Large infraumbilical containing fat measuring 15.4 x 5.0 cm. 2. Cholelithiasis. 3. Atherosclerotic disease. 4. Moderate volume stool colon. 5. Other findings as described.
[2024-06-11] MEDS ORDERED: ONDANSETRON HCL 4 MG/2 ML VIAL IV PRN (11:45)
[2024-06-11] MEDS ORDERED: ALBUTEROL SULF 2.5 MG/0.5ML(0.5%) NEB SOLN NEB PRN (11:45)
[2024-06-11] MEDS ORDERED: NITROGLYCERIN 0.4 MG SL TAB SL PRN (11:45)
[2024-06-11] MEDS ORDERED: DEXTROSE (50%) 50ML SYRG IV PRN (11:45)
[2024-06-11] MEDS ORDERED: LACTULOSE 20Gm/30ML SOLN PO PRN (11:45)
[2024-06-11] MEDS ORDERED: MORPHINE SULFATE INJ 2 MG/ml SYRG IV PRN (11:45)
--- NOTE | 2024-06-11 11:51 | DVHHP2 ---
History of Present Illness Reason for Visit: Chest pain History of Present Illness This 68-year-old female with past medical history of hypertension, diabetes, hyperlipidemia, asthma, obesity, CKD, and restless leg syndrome presents in the ED via EMS with a chief complaint of chest pain. The patient reports chest p ressure pain lasted about an hour, radiating to epigastric area, and is associated with shortness of breath nausea, vomiting started yesterday. The patient reports undergone a nuclear test few years ago with normal findings. Denies diaphoresis, syncope, dyspnea on exertion, or edema. Past Medical History As stated in HPI Past Surgical History Tubal ligation Review of Systems Constitutional: Yes: Malaise; No: Fever, Chills, Sweats, Weakness, Other Eyes: No: Pain, Vision change, Conjunctivae inflammation, Eyelid inflammation, Other, Redness ENT: No: Ear pain, Ear discharge, Nose pain, Nose discharge, Nose congestion, Mouth pain, Mouth swelling, Throat pain, Throat swelling, Other Respiratory: No: Cough, Dry, Shortness of breath, SOB with excertion, Wheezing, Hemoptysis, Pleuritic Pain, Sputum, Wheezing, Other Cardiovascular: Chest Pain; No: Palpitations, Orthopnea, Paroxysmal Noc. Dyspnea, Edema, Lt Headedness, Other Gastrointestinal: Nausea, Vomiting, Abdominal Pain; No: Diarrhea, Constipation, Melena, Hematochezia, Other Genitourinary: No Dysuria, No Frequency, No Incontinence, No Hematuria, No Retention, No Other Musculoskeletal: No: other, neck pain, shoulder pain, arm pain, back pain, hand pain, leg pain, foot pain Neurological: No: Weakness, Numbness, Incoordination, Change in speech, Confusion, Seizures, Other Allergies: Coded Allergies: Morphine (Verified Allergy, Unknown, 11/29/19) Medications Current Medications Medications Dose Ordered Sig/Pippa Route Start Time Stop Time Status Last Admin Dose Admin Aspirin 81 mg DAILY PO 06/12/24 10:00 UNV Clonidine HCl 0.1 mg QPM PO 06/11/24 18:00 UNV Patient Own Medication 1 tab DAILY PO 06/12/24 10:00 UNV Patient Own Medication 0.5 mg HS PO 06/11/24 22:00 UNV Patient Own Medication 1 tab QPM PO 06/11/24 18:00 UNV Exam Vital Signs Vital Signs Date Time Temp Pulse Resp B/P (MAP) Pulse Ox O2 Delivery O2 Flow Rate FiO2 06/11/24 08:00 85 16 96 Room Air* 0 21 06/11/24 07:48 98.3 139/55 (83) 98.3 General Appearance: Alert, Oriented X3, Cooperative, mild distress HEENT: Atraumatic, PERRLA, EOMI, Mucous membr. moist/pink Respiratory: Clear to auscultation Cardiovascular: Regular rate, Normal S1, Normal S2 Abdominal: Normal bowel sounds, No tenderness Extremities: No clubbing, No cyanosis, No edema, Normal pulses Skin: No rashes, No breakdown, No significant lesion Neuro: Normal speech, Normal tone Psych/Mental Status: Mental status NL Labs/Xrays Labs Test 06/11/24 08:10 06/11/24 05:10 Range/Units Troponin I High Sensitivity 3 L </=34 ng/L White Blood Count 10.3 4.4-10.8 10^3/uL Red Blood Count 4.44 4.0-5.20 10^6/uL Hemoglobin 13.7 12.2-16.2 g/dL Hematocrit 40.1 36.0-46.0 % Mean Corpuscular Volume 90.4 80.0-100.0 fL Mean Corpuscular Hemoglobin 30.9 28.0-32.0 pg Mean Corpuscular Hemoglobin Concent 34.1 32.0-36.0 g/dL Red Cell Distribution Width 13.4 11.8-14.3 % Platelet Count 199 140-450 10^3/uL Mean Platelet Volume 10.0 6.9-10.8 fL Neutrophils (%) (Auto) 73.9 37.0-80.0 % Lymphocytes (%) (Auto) 13.8 10.0-50.0 % Monocytes (%) (Auto) 9.0 0.0-12.0 % Eosinophils (%) (Auto) 2.5 0.0-7.0 % Basophils (%) (Auto) 0.8 0.0-2.0 % Neutrophils # (Auto) 7.6 1.6-8.6 10 ^3/uL Lymphocytes # (Auto) 1.4 0.4-5.4 10 ^3/uL Monocytes # (Auto) 0.9 0-1.3 10 ^3/uL Eosinophils # (Auto) 0.3 0-0.8 10 ^3/uL Basophils # (Auto) 0.1 0-0.2 10 ^3/uL Nucleated Red Blood Cells 0.0 % Sodium Level 141 136-145 mmol/L Potassium Level 3.5 3.5-5.1 mmol/L Chloride Level 106 98-107 mmol/L Carbon Dioxide Level 24 20-31 mmol/L Anion Gap 11 5-15 Blood Urea Nitrogen 26 H 9-23 mg/dL Creatinine 1.92 H 0.550-1.02 mg/dL Glomerular Filtration Rate Calc 28 >90 mL/min BUN/Creatinine Ratio 13.5 10.0-20.0 Serum Glucose 92 74-106 mg/dL Calcium Level 9.5 8.7-10.4 mg/dL Total Bilirubin 0.5 0.2-1.0 mg/dL Aspartate Amino Transferase (AST) 86 H 13-40 U/L Alanine Aminotransferase (ALT) 30 7-40 U/L Alkaline Phosphatase 137 H 46-116 U/L Total Protein 7.0 5.7-8.2 g/dL Albumin 4.2 3.2-4.8 g/dL Lipase 35 12-53 U/L Assessment/Plan Assessment/Plan # chest pain to rule out ACS # arteriosclerosis Admit to telemetry unit CP protocol- HEART score 7 asa, statins Cardiology consult Echo - previous echo (06/2023) EF 55% hx of nuc test a few years ago with normal findings # [place] on CKD 4 IV fluid Nephrology consult for worsening kidney function Avoid nephrotoxins # moderate constipation Lactulose p.r.n. 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 [facility] CONS 06/11/24 Verified -[place] 11:34 Date of Service: Jun 11, 2024 Billing Provider: FELIPA RDZ Common Visit Codes: [id number] INP/OBS CARE (HIGH) FELIPA RDZ Jun 11, 2024 11:51
[2024-06-11] MEDS: SODIUM CHLORIDE 0.9% 1,000 ML IV SCH (12:11)
[2024-06-11 12:16] LABS: Triglycerides 90 mg/dL (< 150)
[2024-06-11 12:17] LABS: LDL Cholesterol 82 mg/dL (< 100)
[2024-06-11 12:18] LABS: Cholesterol 151 mg/dL (< 200); HDL Cholesterol 54 mg/dL (40-59)
--- NOTE | 2024-06-11 12:19 | DVH ---
CHEST RADIOGRAPH Indication: cp Technique: Single frontal view of the chest was obtained Comparison: XY CHEST XRAY 1 VIEW on DOS: 06/07/23, XY CHEST PORTABLE on DOS: 09/04/22, XY CHEST PORTABLE on DOS: 08/19/22, XY CHEST PORTABLE on DOS: 08/17/22 FINDINGS: The cardiac silhouette is enlarged. The lungs demonstrate perihilar airspace opacities. The pulmonary vasculature is prominent. There is no pleural effusion.. There is no pneumothorax. IMPRESSION: 1. Cardiomegaly with pulmonary vascular congestion and bilateral perihilar airspace opacities. << >>
--- NOTE | 2024-06-11 12:23 | ECG ---
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
--- NOTE | 2024-06-11 15:07 | DVHSR ---
APPROVED REPORT EXAM: LIMITED Two-dimensional and M-mode echocardiogram with Doppler and color Doppler. Blood Pressure: 139/55 mmHg INDICATION CP to Rule Out ACS RISK FACTORS Height: 5', Weight: 180 DIMENSIONS LVDd5.0 (3.8-5.7cm)LA (2D)3.3 (1.9-4.0cm)Aortic Root2.9 (2.0-3.7cm) LVDs3.4 (2.5-4.0cm)LA (MM) (1.9-4.0cm)Aortic Cusp Exc1.7 (1.5-2.0cm) EF (%) 60.0 (55-70%)Rt. Atrium3.4 (1.9-4.0cm)Asc. Aorta cm IVSd0.9 (0.7-1.1cm)RV (D) (1.8-2.4cm) PWd0.9 (0.7-1.1cm) Mitral Valve MitralMitral Stenosis E wave0.70m/sMV Mean GR.mmHg A wave0.90m/sMV Peak GR.mmHg E/A ratio0.82D MVAcm2 Aortic Valve Aortic ValveAortic Stenosis V10.90m/Viviane Mean GR.4mmHg V21.40m/Viviane Peak GR.9mmHg LVOT Diameter2.3 (1.8-2.4cm)Doppler AVA2.67cm2 Other Information Quality : Technically LimitedRhythm : Technically limited study due to body habitus. Conclusion Technically good study. Sinus rhythm. Difficult acoustic windows. From the limited views obtained there appears to be normal chamber sizes. Valves appear to be structurally normal. EF of 60% with normal RV function. Dopplers unremarkable. No pericardial effusion masses or vegetations.
[2024-06-11] MEDS: ACCU-CHEK COMFORT CURVE STRIP VI SCH (17:00)
[2024-06-11] MEDS: cloNIDine HCL 0.1 MG TAB PO SCH (18:12)
[2024-06-11] MEDS: InsuLIN REG 1unit/0.01ml Soln (100units/ml) SC SCH (18:15)
[2024-06-11] MEDS: ATORVASTATIN 20 MG TAB PO SCH (21:27)
[2024-06-11] MEDS: ROPINIROLE HYDROCHLORIDE 0.5 MG PO SCH (22:00)
[2024-06-12] VITALS (11 sets, daily range): BP systolic 105–145; BP diastolic 47–58; PULSE 57–68; RESP 16–18; TEMP 97.3–98.8; O2SAT 94–96
[2024-06-12] MEDS: ACETAMINOPHEN 325 MG TAB PO PRN (06:41)
[2024-06-12 07:11] LABS: Basophils # (auto) 0 10 ^3/uL (0-0.2); Basophils % (auto) 1.1 % (0.0-2.0); Eosinophils # (auto) 0.3 10 ^3/uL (0-0.8); Eosinophils % (auto) 8.1 % (0.0-7.0); Hematocrit 36.7 % (36.0-46.0); Hemoglobin 12.6 g/dL (12.2-16.2); Lymphocytes % (auto) 24.6 % (10.0-50.0); Mean Corpuscular Hemoglobin 31.3 pg (28.0-32.0); Mean Corpuscular Hgb Conc. 34.3 g/dL (32.0-36.0); Mean Corpuscular Volume 91.2 fL (80.0-100.0); Monocytes # (auto) 0.5 10 ^3/uL (0-1.3); Monocytes % (auto) 13.4 % (0.0-12.0); Neutrophils # (auto) 2.1 10 ^3/uL (1.6-8.6); Neutrophils % (auto) 52.8 % (37.0-80.0); Nucleated Red Blood Cells % 0.3 %; Platelet Count (auto) 152 10^3/uL (140-450); Red Blood Cells 4.03 10^6/uL (4.0-5.20); Red Cell Distribution Width 13.8 % (11.8-14.3)
[2024-06-12 07:16] LABS: Anion Gap 8 (5-15); BUN/Creatinine Ratio 12.8 (10.0-20.0); Blood Urea Nitrogen 22 mg/dL (9-23); Calcium 8.8 mg/dL (8.7-10.4); Carbon Dioxide 23 mmol/L (20-31); Potassium 4.1 mmol/L (3.5-5.1); Sodium 139 mmol/L (136-145); Total Protein 5.9 g/dL (5.7-8.2)
[2024-06-12 07:17] LABS: Albumin 3.5 g/dL (3.2-4.8); Bilirubin, Total 0.9 mg/dL (0.2-1.0)
[2024-06-12 07:21] LABS: Alanine Aminotransferase 115 U/L (7-40); Alkaline Phosphatase 126 U/L (46-116); Aspartate Aminotransferase 181 U/L (13-40); Chloride 108 mmol/L (98-107); Glucose 156 mg/dL (74-106)
--- NOTE | 2024-06-12 07:25 | ECG ---
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
[2024-06-12] MEDS: ASPirin-EC 81 mg tab PO SCH (10:58)
[2024-06-12] MEDS: ENOXAPARIN SOD 30 MG/0.3 ML SYRINGE SC SCH (10:58)
[2024-06-12] MEDS: NIFEdipine ER 30 MG TAB PO SCH (11:04)
--- NOTE | 2024-06-12 11:07 | DVHPN2 ---
Subjective Denies any symptoms at this time. Reviewed: Care Plan, H&P Changes from previous H/P or p: No Changes Eyes: No Pain, No Vision change, No Conjunctivae inflammation, No Eyelid inflammation, No Other, No Redness ENT: No Ear pain, No Ear discharge, No Nose pain, No Nose discharge, No Nose congestion, No Mouth pain, No Mouth swelling, No Throat pain, No Throat swelling, No Other Cardiovascular: Chest Pain; No Palpitations, No Orthopnea, No Paroxysmal Noc. Dyspnea, No Edema, No Lt Headedness, No Other Respiratory: No Cough, No Dry, No Shortness of breath, No SOB with excertion, No Wheezing, No Hemoptysis, No Pleuritic Pain, No Sputum, No Other Gastrointestinal: Nausea, Vomiting, Abdominal Pain; No Diarrhea, No Constipation, No Melena, No Hematochezia, No Other Genitourinary: No Dysuria, No Frequency, No Incontinence, No Hematuria, No Retention, No Other Musculoskeletal: No other, No neck pain, No shoulder pain, No arm pain, No back pain, No hand pain, No leg pain, No foot pain Objective Vitals Vital Signs Date Time Temp Pulse Resp B/P (MAP) Pulse Ox O2 Delivery O2 Flow Rate FiO2 06/12/24 08:30 98.8 57 16 144/58 (86) 94 98.8 06/11/24 20:00 Room Air* 0 21 Intake/Output Intake and Output 06/12/24 07:00 Intake Total 820 ml Balance 820 ml Intake Oral 820 ml # Voids 5 # Bowel Movements 1 General Appearance: Alert, Oriented X3, Cooperative, No acute distress HEENT: Atraumatic, PERRLA Neck: Carotid [place], Enlarged Thyroid Lungs: Clear to auscultation, Normal air movement Cardiovascular: Normal S1, Normal S2 Abdomen: Normal bowel sounds, Soft, No tenderness Musculoskeletal: Normal motor function Skin: Dry, Intact Psych/Mental Status: Mental status NL, Mood NL Medications Current Medications Medications Dose Ordered Sig/Pippa Route Start Time Stop Time Status Last Admin Dose Admin Aspirin 81 mg DAILY PO 06/12/24 10:00 Clonidine HCl 0.1 mg QPM PO 06/11/24 18:00 06/11/24 18:12 0.1 MG Nifedipine 60 mg DAILY PO 06/12/24 10:00 Patient Own Medication 0.5 mg HS PO 06/11/24 22:00 Atorvastatin Calcium 10 mg HS PO 06/11/24 22:00 06/11/24 21:27 10 MG Lactulose 30 ml BIDPRN PRN PO 06/11/24 11:45 Sodium Chloride 1,000 ml @ 75 mls/hr [id number] IV 06/11/24 11:45 06/12/24 06:26 75 MLS/HR Diagnostic Test (Pha) 1 strip ACHS 06/11/24 17:00 06/12/24 06:27 1 STRIP Insulin Human Regular ACHS SC 06/11/24 17:00 06/12/24 06:23 162 UNITS Dextrose 50 ml UD PRN IV 06/11/24 11:45 Albuterol 2.5 mg Q4HPRN PRN NEB 06/11/24 11:45 Acetaminophen/ Hydrocodone Bitart 1 tab Q4HP PRN PO 06/11/24 11:45 Ondansetron HCl 4 mg Q4HP PRN IV 06/11/24 11:45 Enoxaparin Sodium 30 mg DAILY SC 06/12/24 10:00 Acetaminophen 650 mg Q6HP PRN PO 06/11/24 11:45 06/12/24 06:41 650 MG Nitroglycerin 0.4 mg Q5MINP PRN SL 06/11/24 11:45 Morphine Sulfate 2 mg Q30M PRN IV 06/11/24 11:45 Hold Laboratory Results Laboratory Tests 06/12/24 04:55 Chemistry Test 06/12/24 04:55 Albumin 3.5 g/dL (3.2-4.8) Calcium Level 8.8 mg/dL (8.7-10.4) Total Protein 5.9 g/dL (5.7-8.2) Cardiac Markers Test 06/12/24 04:55 B-Type Natriuretic Peptide 93.44 pg/mL (0-100) LFT Test 06/12/24 04:55 Alanine Aminotransferase (ALT) 115 U/L (7-40) H Alkaline Phosphatase 126 U/L (46-116) H Aspartate Amino Transferase (AST) 181 U/L (13-40) H Total Bilirubin 0.9 mg/dL (0.2-1.0) Labs and/or images reviewed: Labs reviewed by me, Image(s) reviewed by me Assessment/Plan Assessment/Plan Impression: -rule out ACS -obesity -chronic kidney disease 3A -diabetes mellitus -ventral hernia -degenerative joint disease of right knee -transaminitis Plan: -sirs troponin -echocardiogram -cardiology consultation -regular insulin sliding scale -nephrology consultation -further course of care per Cardiology recommendations Total time spent with patient discussing and formulating plan of care: 35 minutes. This medical document was created using an electronic medical record system with [employer] dictation system. Although this document has been carefully reviewed, there may still be some phonetic and typographical errors. These areas are purely typographical due to imperfections of the software programs, and do not reflect any compromise in the patient's medical care. Plan discussed with: Patient, Other (RN) My Orders Orders - SONIA BRANCH NP Procedure Category Date Status Time * Cardiology Consult CONS 06/12/24 Transmitted 11:04 Date of Service: Jun 12, 2024 Billing Provider: SONIA BRANCH NP Common Visit Codes: [id number] INP/OBS CARE(HIGH) SONIA BRANCH NP Jun 12, 2024 11:07
--- NOTE | 2024-06-12 14:48 | DVHINCON2 ---
[facility] 06/12/24 1447: Date Seen: Jun 12, 2024 Referring Physician KIMMIE Posey Reason for Consultation Chest pain rule out ACS History of Present Illness This is a 68-year-old female who presented to the emergency room via EMS with a chief complaint of chest pain. The patient reported three episodes of vomiting prior to the onset of chest pain which is described as substernal, constant, pressure-like, and nonradiating. She was medicated by EMS with NTG 0.4 mg SL and ASA 324 mg p.o. with no relief of symptoms. At time of assessment the patient denied any further chest pain. She underwent multiple 12 lead electrocardiograms x 3 revealing a normal sinus rhythm. Serial troponin levels are negative. Patient reports undergoing a nonischemic stress test two years prior. Significant medical history includes hypertension, dyslipidemia, insulin-dependent diabetes mellitus, asthma, restless leg syndrome, and morbid obesity. Past Medical History Past medical history reviewed. No other significant than mentioned above. Past Surgical History BTL Family History: Cardiovascular disease G8 FATHER Diabetes mellitus G8 MOTHER FH: CABG (coronary artery bypass surgery) G8 FATHER FH: lymphoma G8 MOTHER FH: renal failure G8 MOTHER FHx: thyroid disease G8 MOTHER Family History Family history reviewed. Social History Denies the use of illicit drugs, alcohol, or tobacco use. Allergies: Coded Allergies: Morphine (Verified Allergy, Unknown, 11/29/19) Home Meds Reported Medications Insulin Glargine (Basaglar Kwikpen) 100 Unit/Ml Inj, 25 SC BID for 90 Days, #45 06/13/24 Hydrocodone-Acetaminophen (Hydrocodone/Acetaminophen 10-325 mg) 1 Tab Tab, 1 TAB PO TID for 30 Days, #90 06/13/24 Albuterol Sulfate (Albuterol Sulfate Hfa) 108 Mcg/Act Aer, 2 PUFF INH QID for 75 Days, #54 06/13/24 Insulin Isophane & Reg (Human) (Humulin 70/30 (70-30) 100 Unit/ml) 1 Units/0.01 Ml Inj, 35 UNITS SC BID for 15 Days, #10 06/13/24 Triamcinolone Acetonide (Kenalog) 1 Applic Ap, 1 APPLIC TOP BID for 30 Days, #80 06/13/24 Temazepam (Temazepam) 15 Mg Cap, 1 CAP PO QHSP for 30 Days, #30 06/13/24 Nifedipine (Nifedipine Er) 60 Mg Tab, 1 TAB PO DAILY, #30 TAB 5 Refills 07/23/19 Simvastatin (Simvastatin) 20 Mg Tab, 1 TAB PO QPM, #30 TAB 5 Refills 07/23/19 Clonidine Hydrochloride (Clonidine Hcl) 0.1 Mg Tab, 1 TAB PO QPM, #30 TAB 2 Refills 07/23/19 Ropinirole Hydrochloride (Ropinirole Hcl) 0.5 Mg Tab, 0.5 MG PO HS, TAB 07/23/19 Aspirin (Aspir-81) 81 Mg Tab, 1 TAB PO DAILY, #30 TAB 5 Refills 07/23/19 Home Meds Home medications reviewed. Current Medications Current Medications Medications (Trade) Dose Ordered Sig/Pippa Route PRN Reason Start Time Stop Time Status Last Admin Aspirin (Ecotrin Enteric Coated Tablet) 81 mg DAILY PO 06/12/24 10:00 06/12/24 10:58 Clonidine HCl (Catapres Tablet) 0.1 mg QPM PO 06/11/24 18:00 06/11/24 18:12 Nifedipine (Procardia Xl (Time-Release)) 60 mg DAILY PO 06/12/24 10:00 06/12/24 11:04 Patient Own Medication 0.5 mg HS PO 06/11/24 22:00 Atorvastatin Calcium (Lipitor) 10 mg HS PO 06/11/24 22:00 06/11/24 21:27 Diagnostic Test (Pha) (Accu-Chek Comfort Curve T) 1 strip ACHS 06/11/24 17:00 06/12/24 10:34 Insulin Human Regular (InsuLIN R) ACHS SC 06/11/24 17:00 06/12/24 10:41 Enoxaparin Sodium (Lovenox) 30 mg DAILY SC 06/12/24 10:00 06/12/24 10:58 Review of Systems Constitutional: No symptom reported Ears, Nose, & Throat: No symptom reported Eyes: No symptom reported Neurological: No symptoms reported Pulmonary/Respiratory: No symptom reported Cardiovascular: Chest pain Gastrointestinal: No symptom reported Genitourinary: No symptom reported Musculoskeletal: No symptom reported Skin: No symptom reported Psychiatric: No symptom reported Endocrine: No symptom reported Hemotologic/Lymphatic: No symptom reported Vital Signs Vital Signs Date Time Temp Pulse Resp B/P (MAP) Pulse Ox O2 Delivery O2 Flow Rate FiO2 06/12/24 12:30 98.6 57 16 145/49 (81) 95 98.6 06/12/24 12:21 Room Air* 0 21 Physical Exam General Appearance: Cooperative. Well developed. Morbidly obese. In no acute distress Head Exam: Normal inspection Neck Exam: Normal inspection. Non-tender. Normal alignment Pulmonary/Respiratory: Chest non-tender. Clear bilateral breath sounds Cardiovascular/Chest: Regular rate and rhythm. S1, S2. NSR. No murmurs. No JVD. Peripheral Pulses: 2+ Radial (R). 2+ Radial (L). 2+ Pedal (R). 2+ Pedal (L) Abdominal Exam: Normal bowel sounds. Soft. Nontender. No hepatospenomegaly. No masses Ankle Exam: Negative ankle edema Lower extremities: Negative lower extremity edema Neuro/Mental Status: A&O x4. Coherent Thoughts/Psych: Normal thought pattern. Appropriate mood and affect. Good judgement and insight Appearance: In no acute distress Skin Exam: Normal inspection. Normal color. Warm. Dry Labs/Diagnostic Data Labs Test 06/12/24 10:35 06/12/24 04:55 06/11/24 08:10 06/11/24 05:10 Range/Units POC Glucose 197 H 70-106 mg/dl White Blood Count 4.0 #L 4.4-10.8 10^3/uL Red Blood Count 4.03 4.0-5.20 10^6/uL Hemoglobin 12.6 12.2-16.2 g/dL Hematocrit 36.7 36.0-46.0 % Mean Corpuscular Volume 91.2 80.0-100.0 fL Mean Corpuscular Hemoglobin 31.3 28.0-32.0 pg Mean Corpuscular Hemoglobin Concent 34.3 32.0-36.0 g/dL Red Cell Distribution Width 13.8 11.8-14.3 % Platelet Count 152 140-450 10^3/uL Mean Platelet Volume 10.3 6.9-10.8 fL Neutrophils (%) (Auto) 52.8 37.0-80.0 % Lymphocytes (%) (Auto) 24.6 10.0-50.0 % Monocytes (%) (Auto) 13.4 H 0.0-12.0 % Eosinophils (%) (Auto) 8.1 H 0.0-7.0 % Basophils (%) (Auto) 1.1 0.0-2.0 % Neutrophils # (Auto) 2.1 1.6-8.6 10 ^3/uL Lymphocytes # (Auto) 1.0 0.4-5.4 10 ^3/uL Monocytes # (Auto) 0.5 0-1.3 10 ^3/uL Eosinophils # (Auto) 0.3 0-0.8 10 ^3/uL Basophils # (Auto) 0 0-0.2 10 ^3/uL Nucleated Red Blood Cells 0.3 % Sodium Level 139 136-145 mmol/L Potassium Level 4.1 3.5-5.1 mmol/L Chloride Level 108 H 98-107 mmol/L Carbon Dioxide Level 23 20-31 mmol/L Anion Gap 8 5-15 Blood Urea Nitrogen 22 9-23 mg/dL Creatinine 1.72 H 0.550-1.02 mg/dL Glomerular Filtration Rate Calc 32 >90 mL/min BUN/Creatinine Ratio 12.8 10.0-20.0 Serum Glucose 156 H 74-106 mg/dL Calcium Level 8.8 8.7-10.4 mg/dL Total Bilirubin 0.9 0.2-1.0 mg/dL Aspartate Amino Transferase (AST) 181 H 13-40 U/L Alanine Aminotransferase (ALT) 115 H 7-40 U/L Alkaline Phosphatase 126 H 46-116 U/L B-Type Natriuretic Peptide 93.44 0-100 pg/mL Total Protein 5.9 5.7-8.2 g/dL Albumin 3.5 3.2-4.8 g/dL Troponin I High Sensitivity 3 L </=34 ng/L Hemoglobin A1c 6.9 H <5.7 % A1C Triglycerides Level 90 < 150 mg/dL Cholesterol Level 151 < 200 mg/dL LDL Cholesterol 82 < 100 mg/dL HDL Cholesterol 54 40-59 mg/dL Lipase 35 12-53 U/L Microbiology Date/Time Source Procedure Growth Status 06/11/24 17:20 Nose MRSA Screen - Final Complete Assessment Chest pain rule out coronary artery disease Insulin-dependent diabetes mellitus Hypertension Dyslipidemia EUSEBIA on CKD Morbid obesity Plan/Recommendation (Dr. Singh) Transthoracic echocardiogram revealed EF 60% with normal RV function. Scheduled for a Cardiolite stress test at first available. In the meantime, continue chest pain protocol as well as single antiplatelet therapy. Monitor ECG changes with lowering flow. Thank you for allowing us to participate in this patient's care. Please call if you have any questions or concerns. This medical document was created using an electronic medical record system with voice recognition software and computerized dictation system. Although this document has been carefully reviewed, there might still be some phonetic and typographical errors. Occasional wrong-word or ``sound-alike substitutions may have occurred due to the inherent limitations of voice recognition software. These areas are purely typographical due to imperfections of the software programs and do not reflect any compromise in the patient's medical care. Please read the chart carefully and recognize, using context, where these substitutions have occurred. Plan discussed with: Patient, Other NYHA Physical activity limitations: NA Date of Service: Jun 12, 2024 Billing Provider: [facility] [employer] PROGRAMMER Cardiology Common Codes: [id number] INP/OBS CARE (High) SUMAN SINGH MD 06/15/24 1635: Family History: Cardiovascular disease G8 FATHER Diabetes mellitus G8 MOTHER FH: CABG (coronary artery bypass surgery) G8 FATHER FH: lymphoma G8 MOTHER FH: renal failure G8 MOTHER FHx: thyroid disease G8 MOTHER Allergies: Coded Allergies: Morphine (Verified Allergy, Unknown, 11/29/19) Home Meds Reported Medications Insulin Glargine (Basaglar Kwikpen) 100 Unit/Ml Inj, 25 SC BID for 90 Days, #45 06/13/24 Hydrocodone-Acetaminophen (Hydrocodone/Acetaminophen 10-325 mg) 1 Tab Tab, 1 TAB PO TID for 30 Days, #90 06/13/24 Albuterol Sulfate (Albuterol Sulfate Hfa) 108 Mcg/Act Aer, 2 PUFF INH QID for 75 Days, #54 06/13/24 Insulin Isophane & Reg (Human) (Humulin 70/30 (70-30) 100 Unit/ml) 1 Units/0.01 Ml Inj, 35 UNITS SC BID for 15 Days, #10 06/13/24 Triamcinolone Acetonide (Kenalog) 1 Applic Ap, 1 APPLIC TOP BID for 30 Days, #80 06/13/24 Temazepam (Temazepam) 15 Mg Cap, 1 CAP PO QHSP for 30 Days, #30 06/13/24 Nifedipine (Nifedipine Er) 60 Mg Tab, 1 TAB PO DAILY, #30 TAB 5 Refills 07/23/19 Simvastatin (Simvastatin) 20 Mg Tab, 1 TAB PO QPM, #30 TAB 5 Refills 07/23/19 Clonidine Hydrochloride (Clonidine Hcl) 0.1 Mg Tab, 1 TAB PO QPM, #30 TAB 2 Refills 07/23/19 Ropinirole Hydrochloride (Ropinirole Hcl) 0.5 Mg Tab, 0.5 MG PO HS, TAB 07/23/19 Aspirin (Aspir-81) 81 Mg Tab, 1 TAB PO DAILY, #30 TAB 5 Refills 07/23/19 Plan/Recommendation agree with GYMNASTIC COACH assessment and plan needs lexiscan stress mpi for [facility] [employer] PROGRAMMER Jun 12, 2024 14:47 SUMAN SINGH MD Jun 15, 2024 16:35
--- NOTE | 2024-06-12 16:59 | DVHCONRES ---
Date Seen: Jun 12, 2024 Resident Creating Document: EVIE HU RESIDENT Referring Physician KIMMIE Doss History of Present Illness 68-year-old female with complex medical history including hypertension, type 2 diabetes, hyperlipidemia, asthma, obesity chronic kidney disease stage 4 and restless leg syndrome who presented to the emergency department with retrosternal chest pressure lasting about an hour radiating to the epigastric area associated with shortness of breaths nausea vomiting and malaise. She denies diaphoresis. Chest pain has since resolved. She has had a normal nuclear stress test a few years ago no prior history of coronary intervention workup was initiated to rule out ACS. Nephrology was consulted due to elevated creatinine consistent with EUSEBIA on chronic kidney disease stage 4 the patient was started on IV fluids, other concerns include mild transaminitis new bradycardia which is asymptomatic and moderately elevated.eosinophils and monocytes, possibly reflecting inflammatory response. She was recently started on ropinirole for restless leg syndrome. Family History: Cardiovascular disease G8 FATHER Diabetes mellitus G8 MOTHER FH: CABG (coronary artery bypass surgery) G8 FATHER FH: lymphoma G8 MOTHER FH: renal failure G8 MOTHER FHx: thyroid disease G8 MOTHER Allergies: Coded Allergies: Morphine (Verified Allergy, Unknown, 11/29/19) Home Meds Reported Medications Insulin Glargine (Basaglar Kwikpen) 100 Unit/Ml Inj, 25 SC BID for 90 Days, #45 06/13/24 Hydrocodone-Acetaminophen (Hydrocodone/Acetaminophen 10-325 mg) 1 Tab Tab, 1 TAB PO TID for 30 Days, #90 06/13/24 Albuterol Sulfate (Albuterol Sulfate Hfa) 108 Mcg/Act Aer, 2 PUFF INH QID for 75 Days, #54 06/13/24 Insulin Isophane & Reg (Human) (Humulin 70/30 (70-30) 100 Unit/ml) 1 Units/0.01 Ml Inj, 35 UNITS SC BID for 15 Days, #10 06/13/24 Triamcinolone Acetonide (Kenalog) 1 Applic Ap, 1 APPLIC TOP BID for 30 Days, #80 06/13/24 Temazepam (Temazepam) 15 Mg Cap, 1 CAP PO QHSP for 30 Days, #30 06/13/24 Nifedipine (Nifedipine Er) 60 Mg Tab, 1 TAB PO DAILY, #30 TAB 5 Refills 07/23/19 Simvastatin (Simvastatin) 20 Mg Tab, 1 TAB PO QPM, #30 TAB 5 Refills 07/23/19 Clonidine Hydrochloride (Clonidine Hcl) 0.1 Mg Tab, 1 TAB PO QPM, #30 TAB 2 Refills 07/23/19 Ropinirole Hydrochloride (Ropinirole Hcl) 0.5 Mg Tab, 0.5 MG PO HS, TAB 07/23/19 Aspirin (Aspir-81) 81 Mg Tab, 1 TAB PO DAILY, #30 TAB 5 Refills 07/23/19 Current Medications Current Medications Medications (Trade) Dose Ordered Sig/Pippa Route PRN Reason Start Time Stop Time Status Last Admin Aspirin (Ecotrin Enteric Coated Tablet) 81 mg DAILY PO 06/12/24 10:00 06/12/24 10:58 Clonidine HCl (Catapres Tablet) 0.1 mg QPM PO 06/11/24 18:00 06/11/24 18:12 Nifedipine (Procardia Xl (Time-Release)) 60 mg DAILY PO 06/12/24 10:00 06/12/24 11:04 Patient Own Medication 0.5 mg HS PO 06/11/24 22:00 Atorvastatin Calcium (Lipitor) 10 mg HS PO 06/11/24 22:00 06/11/24 21:27 Diagnostic Test (Pha) (Accu-Chek Comfort Curve T) 1 strip ACHS 06/11/24 17:00 06/12/24 10:34 Insulin Human Regular (InsuLIN R) ACHS SC 06/11/24 17:00 06/12/24 10:41 Enoxaparin Sodium (Lovenox) 30 mg DAILY SC 06/12/24 10:00 06/12/24 16:00 DC 06/12/24 10:58 Enoxaparin Sodium (Lovenox) 40 mg DAILY SC 06/13/24 10:00 Review of Systems General: Malaise Cardiovascular: Chest pain resolved Respiratory : Mild shortness of breath GI: Nausea vomiting abdominal pain, resolving : No dysuria, hematuria Neurology: No headaches dizziness , restless leg syndrome Skin: No rash Vital Signs Vital Signs Date Time Temp Pulse Resp B/P (MAP) Pulse Ox O2 Delivery O2 Flow Rate FiO2 06/12/24 12:30 98.6 57 16 145/49 (81) 95 98.6 06/12/24 12:21 Room Air* 0 21 Physical Exam General: Alert, in no acute distress Cardiovascular: Regular rate and rhythm, no murmurs bradycardia on monitor Respiratory: Clear to auscultation bilaterally GI: Soft, mild epigastric tenderness reported on admission: Bowel sounds are present Neurologic: No focal deficits alert and oriented x3 Skin: no rash or edema Genitourinary: No suprapubic tenderness Labs/Diagnostic Data Labs Test 06/12/24 10:35 06/12/24 04:55 06/11/24 08:10 06/11/24 05:10 Range/Units POC Glucose 197 H 70-106 mg/dl White Blood Count 4.0 #L 4.4-10.8 10^3/uL Red Blood Count 4.03 4.0-5.20 10^6/uL Hemoglobin 12.6 12.2-16.2 g/dL Hematocrit 36.7 36.0-46.0 % Mean Corpuscular Volume 91.2 80.0-100.0 fL Mean Corpuscular Hemoglobin 31.3 28.0-32.0 pg Mean Corpuscular Hemoglobin Concent 34.3 32.0-36.0 g/dL Red Cell Distribution Width 13.8 11.8-14.3 % Platelet Count 152 140-450 10^3/uL Mean Platelet Volume 10.3 6.9-10.8 fL Neutrophils (%) (Auto) 52.8 37.0-80.0 % Lymphocytes (%) (Auto) 24.6 10.0-50.0 % Monocytes (%) (Auto) 13.4 H 0.0-12.0 % Eosinophils (%) (Auto) 8.1 H 0.0-7.0 % Basophils (%) (Auto) 1.1 0.0-2.0 % Neutrophils # (Auto) 2.1 1.6-8.6 10 ^3/uL Lymphocytes # (Auto) 1.0 0.4-5.4 10 ^3/uL Monocytes # (Auto) 0.5 0-1.3 10 ^3/uL Eosinophils # (Auto) 0.3 0-0.8 10 ^3/uL Basophils # (Auto) 0 0-0.2 10 ^3/uL Nucleated Red Blood Cells 0.3 % Sodium Level 139 136-145 mmol/L Potassium Level 4.1 3.5-5.1 mmol/L Chloride Level 108 H 98-107 mmol/L Carbon Dioxide Level 23 20-31 mmol/L Anion Gap 8 5-15 Blood Urea Nitrogen 22 9-23 mg/dL Creatinine 1.72 H 0.550-1.02 mg/dL Glomerular Filtration Rate Calc 32 >90 mL/min BUN/Creatinine Ratio 12.8 10.0-20.0 Serum Glucose 156 H 74-106 mg/dL Calcium Level 8.8 8.7-10.4 mg/dL Total Bilirubin 0.9 0.2-1.0 mg/dL Aspartate Amino Transferase (AST) 181 H 13-40 U/L Alanine Aminotransferase (ALT) 115 H 7-40 U/L Alkaline Phosphatase 126 H 46-116 U/L B-Type Natriuretic Peptide 93.44 0-100 pg/mL Total Protein 5.9 5.7-8.2 g/dL Albumin 3.5 3.2-4.8 g/dL Troponin I High Sensitivity 3 L </=34 ng/L Hemoglobin A1c 6.9 H <5.7 % A1C Triglycerides Level 90 < 150 mg/dL Cholesterol Level 151 < 200 mg/dL LDL Cholesterol 82 < 100 mg/dL HDL Cholesterol 54 40-59 mg/dL Lipase 35 12-53 U/L Microbiology Date/Time Source Procedure Growth Status 06/11/24 17:20 Nose MRSA Screen - Final Complete Assessment Assessment: Acute kidney injury on chronic kidney disease stage 4 likely prerenal component from nausea, vomiting and volume depletion. Type 2 diabetes Hypertension Mild hyperchloremia Transaminitis Symptomatic bradycardia Restless leg syndrome Plan: Continue hydration and avoid nephrotoxic medications. Monitor renal panel LFTs and electrolyte daily metabolic panel and urine studies to complete CKD staging Vitamin-D Parathyroid hormone Magnesium Phosphorus Urine protein/creatinine Urine sodium Outpatient Nephrology referral recommended for long-term CKD care within 2 weeks after discharge with Dr. Chpaman Educate patient has CKD and diet: 2 g sodium restriction. Urinalysis Case discussed with Dr. Chapman Goals of care discussed with the patient for 23 minutes Code status: Full code Patient seen and examined by myself today on rounds with the medicine resident, I agree with the assessment and plan as documented above Plan discussed with: Patient DOUGLAS FernandezEVIE RESIDENT Jun 12, 2024 16:59 MEAGAN CHAPMAN MD Jun 13, 2024 15:07
[2024-06-12] MEDS: HYDROcodone-ACET 5/325MG TAB PO PRN (17:37)
[2024-06-12 18:38] LABS: Phosphorus 2.7 mg/dL (2.4-5.1)
[2024-06-12] MEDS: CYCLOBENZAPRINE HCL 10 MG TAB PO PRN (22:23)
[2024-06-13] VITALS (9 sets, daily range): BP systolic 117–152; BP diastolic 49–69; PULSE 64–76; RESP 17–20; TEMP 97.8–98.3; O2SAT 90–97
[2024-06-13] MEDS: REGADENOSON 0.4 MG/5 ML SYRG IV ONE ×2 (10:38→11:01)
--- NOTE | 2024-06-13 10:53 | DVHPN2 ---
Subjective The patient is seen and examined at bedside. Chest pain improved. Reviewed: Care Plan, H&P Changes from previous H/P or p: No Changes Eyes: No Pain, No Vision change, No Conjunctivae inflammation, No Eyelid inflammation, No Other, No Redness ENT: No Ear pain, No Ear discharge, No Nose pain, No Nose discharge, No Nose congestion, No Mouth pain, No Mouth swelling, No Throat pain, No Throat swelling, No Other Cardiovascular: Chest Pain; No Palpitations, No Orthopnea, No Paroxysmal Noc. Dyspnea, No Edema, No Lt Headedness, No Other Respiratory: No Cough, No Dry, No Shortness of breath, No SOB with excertion, No Wheezing, No Hemoptysis, No Pleuritic Pain, No Sputum, No Other Gastrointestinal: Nausea, Vomiting, Abdominal Pain; No Diarrhea, No Constipation, No Melena, No Hematochezia, No Other Genitourinary: No Dysuria, No Frequency, No Incontinence, No Hematuria, No Retention, No Other Musculoskeletal: No other, No neck pain, No shoulder pain, No arm pain, No back pain, No hand pain, No leg pain, No foot pain Objective Vitals Vital Signs Date Time Temp Pulse Resp B/P (MAP) Pulse Ox O2 Delivery O2 Flow Rate FiO2 06/13/24 09:00 97.9 72 18 152/69 (96) 96 97.9 06/13/24 07:22 Room Air* 0 21 Intake/Output Intake and Output 06/13/24 06:59 Intake Total 500 ml Balance 500 ml Intake Oral 500 ml # Voids 11 # Bowel Movements 3 General Appearance: Alert, Oriented X3, Cooperative, No acute distress HEENT: Atraumatic, PERRLA Neck: Carotid [place], Enlarged Thyroid Lungs: Clear to auscultation, Normal air movement Cardiovascular: Normal S1, Normal S2 Abdomen: Normal bowel sounds, Soft, No tenderness Musculoskeletal: Normal motor function Skin: Dry, Intact Psych/Mental Status: Mental status NL, Mood NL Medications Current Medications Medications Dose Ordered Sig/Pippa Route Start Time Stop Time Status Last Admin Dose Admin Aspirin 81 mg DAILY PO 06/12/24 10:00 06/12/24 10:58 81 MG Clonidine HCl 0.1 mg QPM PO 06/11/24 18:00 06/12/24 18:10 0.1 MG Nifedipine 60 mg DAILY PO 06/12/24 10:00 06/12/24 11:04 60 MG Patient Own Medication 0.5 mg HS PO 06/11/24 22:00 Atorvastatin Calcium 10 mg HS PO 06/11/24 22:00 06/12/24 22:22 10 MG Lactulose 30 ml BIDPRN PRN PO 06/11/24 11:45 Sodium Chloride 1,000 ml @ 75 mls/hr [id number] IV 06/11/24 11:45 06/12/24 17:46 75 MLS/HR Diagnostic Test (Pha) 1 strip ACHS 06/11/24 17:00 06/13/24 06:08 1 STRIP Insulin Human Regular ACHS SC 06/11/24 17:00 06/12/24 22:30 6 UNITS Dextrose 50 ml UD PRN IV 06/11/24 11:45 Albuterol 2.5 mg Q4HPRN PRN NEB 06/11/24 11:45 Acetaminophen/ Hydrocodone Bitart 1 tab Q4HP PRN PO 06/11/24 11:45 06/12/24 17:37 1 TAB Ondansetron HCl 4 mg Q4HP PRN IV 06/11/24 11:45 Acetaminophen 650 mg Q6HP PRN PO 06/11/24 11:45 06/12/24 06:41 650 MG Nitroglycerin 0.4 mg Q5MINP PRN SL 06/11/24 11:45 Morphine Sulfate 2 mg Q30M PRN IV 06/11/24 11:45 Hold Enoxaparin Sodium 40 mg DAILY SC 06/13/24 10:00 Cyclobenzaprine HCl 5 mg DAILYP PRN PO 06/12/24 21:00 06/12/24 22:23 5 MG Laboratory Results Laboratory Tests 06/12/24 04:55 Chemistry Test 06/12/24 18:03 Magnesium Level 2.0 mg/dL (1.6-2.6) Phosphorus Level 2.7 mg/dL (2.4-5.1) Microbiology Microbiology Date/Time Source Procedure Growth Status 06/11/24 17:20 Nose MRSA Screen - Final Complete Labs and/or images reviewed: Labs reviewed by me Assessment/Plan Assessment/Plan -rule out ACS -obesity -chronic kidney disease 3A -diabetes mellitus -ventral hernia -degenerative joint disease of right knee -transaminitis Plan: -continuing current management -follow up with echocardiogram -cardiology consultation input appreciated. Waiting for stress test to be done. -regular insulin sliding scale -nephrology consultation -further course of care per Cardiology recommendations This medical document was created using an electronic medical record system with M*M [employer] direct computerized dictation system. Although this document has been carefully reviewed, there may still be some phonetic and typographical errors. These areas are purely typographical due to imperfections of the software programs, and do not reflect any compromise in the patient's medical care. Plan discussed with: Patient Date of Service: Jun 13, 2024 Billing Provider: ALLEN NICOLAS MD Common Visit Codes: [id number] INP/OBS CARE(HIGH) ALLEN NICOLAS MD Jun 13, 2024 10:53
[2024-06-13] MEDS: ENOXAPARIN SOD 40 MG/0.4 ML SYRINGE SC SCH (13:03)
--- NOTE | 2024-06-13 15:51 | DVHSR ---
APPROVED REPORT Exam: Nuclear Stress Test BMI: 0 Stress Test Details HR Max Heart Rate (APMHR): 154.481490 bpm Target HR (85% APMHR): 130.449356 bpm BP ECG Stress ECG Conclusion lvef 72% no severe stress induced ischemia noted inferior wall attenuation artifact NM EXAM: Myocardial Perfusion REST/STRESS Imaging Protocol: Rest Tc-99m/Stress Tc-99m 1 day Resting Data Rest SPECT myocardial perfusion imaging was performed in supine position 60 minutes following the int ravenous injection of 14 mCi of Tc-99m Sestamibi. Time of rest injection: 0840 Time of rest imagin Administration Route: IV Administration Site: Right Arm Pharmacologic Stress Pharmacologic stress test was performed by injecting Regadenoson 0.4 mg IV push followed by the intra venous injection of 32 mCi of Tc-99m Sestamibi. Time of stress injection: 1102 Time of stress imagin Administration Route: IV Administration Site: Right Arm Gated Stress SPECT was performed 60 minutes after stress injection. The images were gated to evaluate regional wall motion and calculate left ventricular ejection fracti on. Stress only was performed in the Supine position. Nuclear Conclusion Nuclear Findings: negative for ischemia lvef 72% no severe stress induced ischemia noted inferior wall attenuation artifact
--- NOTE | 2024-06-13 16:05 | DVHPN2 ---
Progress Note Date Seen: Jun 13, 2024 Resident Creating Document: EVIE HU RESIDENT Medical Necessity Reason Pt with a Central, PICC or Fol: No Subjective Review of Systems Patient was examined at bedside, patient today underwent Cardiolite stress test in order to find the etiology of the chest pain. Nephrology was consulted for acute kidney injury today the creatinine levels in the BUN are improving. Urinalysis is still pending, we will follow up on results as it is cunningham for nephrology workup. Patient reports: No new complaints Changes from previous H/P or p: No Changes Other Systems: Patient seen and examined by myself today in follow-up with the medicine resident, I agree with his assessment and plan Objective vital signs Vital Sign Date Time Temp Pulse Resp B/P (MAP) Pulse Ox O2 Delivery O2 Flow Rate FiO2 06/13/24 13:12 152/69 06/13/24 10:30 96 Room Air* 0 21 06/13/24 09:00 97.9 72 18 97.9 Total Intake and Output 06/12/24 06/12/24 06/13/24 15:00 23:00 07:00 Intake Total 200 ml 300 ml Balance 200 ml 300 ml medications Current Medications Medications Dose Ordered Sig/Pippa Route Start Time Stop Time Status Last Admin Dose Admin Aspirin 81 mg DAILY PO 06/12/24 10:00 06/13/24 13:12 81 MG Clonidine HCl 0.1 mg QPM PO 06/11/24 18:00 06/12/24 18:10 0.1 MG Nifedipine 60 mg DAILY PO 06/12/24 10:00 06/13/24 13:12 60 MG Patient Own Medication 0.5 mg HS PO 06/11/24 22:00 Atorvastatin Calcium 10 mg HS PO 06/11/24 22:00 06/12/24 22:22 10 MG Lactulose 30 ml BIDPRN PRN PO 06/11/24 11:45 Sodium Chloride 1,000 ml @ 75 mls/hr [id number] IV 06/11/24 11:45 06/12/24 17:46 75 MLS/HR Diagnostic Test (Pha) 1 strip ACHS 06/11/24 17:00 06/13/24 11:30 1 STRIP Insulin Human Regular ACHS SC 06/11/24 17:00 06/13/24 11:30 2 UNITS Dextrose 50 ml UD PRN IV 06/11/24 11:45 Albuterol 2.5 mg Q4HPRN PRN NEB 06/11/24 11:45 Acetaminophen/ Hydrocodone Bitart 1 tab Q4HP PRN PO 06/11/24 11:45 06/13/24 11:39 1 TAB Ondansetron HCl 4 mg Q4HP PRN IV 06/11/24 11:45 Acetaminophen 650 mg Q6HP PRN PO 06/11/24 11:45 06/12/24 06:41 650 MG Nitroglycerin 0.4 mg Q5MINP PRN SL 06/11/24 11:45 Morphine Sulfate 2 mg Q30M PRN IV 06/11/24 11:45 Hold Enoxaparin Sodium 40 mg DAILY SC 06/13/24 10:00 06/13/24 13:03 40 MG Cyclobenzaprine HCl 5 mg DAILYP PRN PO 06/12/24 21:00 06/13/24 11:39 5 MG Examination: GENERAL:Normal, HEENT:Normal, NECK:Normal, LUNGS:Normal, CVS:Normal, ABDOMEN:Normal, MSK:Normal, SKIN:Normal, NEURO:Normal, :Normal laboratory and microbiology Laboratory Tests 06/12/24 04:55 Test 06/12/24 04:55 Range/Units Serum Glucose 156 H 74-106 mg/dL Microbiology Date/Time Source Procedure Growth Status 06/11/24 17:20 Nose MRSA Screen - Final Complete Problem List/Assessment/Plan Problem List/Assessment/Plan Assessment : Acute kidney injury on chronic kidney disease stage 4 likely prerenal due to volume depletion. Type 2 diabetes Hypertension Mild hyperchloremia Transaminitis Symptomatic bradycardia Restless leg syndrome Plan: Urinalysis and urine studies, still pending Urine protein/creatinine, pending Urine sodium, pending Continue hydration and avoid nephrotoxic medications. Monitor renal panel LFTs and electrolyte daily metabolic panel and urine studies to complete CKD staging Outpatient Nephrology referral recommended for long-term CKD care within 2 weeks after discharge with Dr. Royal Educate patient has CKD and diet: 2 g sodium restriction. cardiolite stress test, cardiology on board Case discussed with Dr. Royal Goals of care discussed with the patient for 23 minutes Code status: Full code Plan discussed with: Patient My Orders My Orders Orders - EVIE HU RESIDENT Procedure Category Date Status Time Urine LAB 06/12/24 Logged Protein/Creatinine Urine Sodium LAB 06/12/24 Logged 15:50 Urinalysis LAB 06/12/24 Logged 15:50 EVIE HU RESIDENT Jun 13, 2024 16:05 MEAGAN ROYAL MD Jun 14, 2024 12:15
--- NOTE | 2024-06-13 16:42 | DVHPN2 ---
Consult Progress Note Date Seen: Jun 13, 2024 Subjective Review of Systems: CVS:Normal, RESPIRATORY:Normal, NEURO:Normal Objective vital signs Vital Sign Date Time Temp Pulse Resp B/P (MAP) Pulse Ox O2 Delivery O2 Flow Rate FiO2 06/13/24 13:12 152/69 06/13/24 10:30 96 Room Air* 0 21 06/13/24 09:00 97.9 72 18 97.9 Total Intake and Output 06/12/24 06/12/24 06/13/24 15:00 23:00 07:00 Intake Total 200 ml 300 ml Balance 200 ml 300 ml medications Current Medications Medications Dose Ordered Sig/Pippa Route Start Time Stop Time Status Last Admin Dose Admin Aspirin 81 mg DAILY PO 06/12/24 10:00 06/13/24 13:12 81 MG Clonidine HCl 0.1 mg QPM PO 06/11/24 18:00 06/12/24 18:10 0.1 MG Nifedipine 60 mg DAILY PO 06/12/24 10:00 06/13/24 13:12 60 MG Patient Own Medication 0.5 mg HS PO 06/11/24 22:00 Atorvastatin Calcium 10 mg HS PO 06/11/24 22:00 06/12/24 22:22 10 MG Lactulose 30 ml BIDPRN PRN PO 06/11/24 11:45 Sodium Chloride 1,000 ml @ 75 mls/hr [id number] IV 06/11/24 11:45 06/12/24 17:46 75 MLS/HR Diagnostic Test (Pha) 1 strip ACHS 06/11/24 17:00 06/13/24 11:30 1 STRIP Insulin Human Regular ACHS SC 06/11/24 17:00 06/13/24 11:30 2 UNITS Dextrose 50 ml UD PRN IV 06/11/24 11:45 Albuterol 2.5 mg Q4HPRN PRN NEB 06/11/24 11:45 Acetaminophen/ Hydrocodone Bitart 1 tab Q4HP PRN PO 06/11/24 11:45 06/13/24 11:39 1 TAB Ondansetron HCl 4 mg Q4HP PRN IV 06/11/24 11:45 Acetaminophen 650 mg Q6HP PRN PO 06/11/24 11:45 06/12/24 06:41 650 MG Nitroglycerin 0.4 mg Q5MINP PRN SL 06/11/24 11:45 Morphine Sulfate 2 mg Q30M PRN IV 06/11/24 11:45 Hold Enoxaparin Sodium 40 mg DAILY SC 06/13/24 10:00 06/13/24 13:03 40 MG Cyclobenzaprine HCl 5 mg DAILYP PRN PO 06/12/24 21:00 06/13/24 11:39 5 MG Examination: LUNGS:Normal, CVS:Normal, NEURO:Normal laboratory and microbiology Laboratory Tests 06/12/24 04:55 Test 06/12/24 04:55 Range/Units Serum Glucose 156 H 74-106 mg/dL Problem List/Assessment/Plan Problem List/Assessment/Plan Chest pain rule out coronary artery disease Insulin-dependent diabetes mellitus Hypertension Dyslipidemia [place] on CKD Morbid obesity Plan/Recommendation (Dr. Ortega) Transthoracic echocardiogram revealed EF 60% with normal RV function. Cardiolite stress test negative for ischemia. There is no further cardiac work- up indicated at this time. Kindly call if in need to re-consult. Thank you for allowing us to participate in this patient's care. This medical document was created using an electronic medical record system with voice recognition software and computerized dictation system. Although this document has been carefully reviewed, there might still be some phonetic and typographical errors. Occasional wrong-word or ``sound-alike substitutions may have occurred due to the inherent limitations of voice recognition software. These areas are purely typographical due to imperfections of the software programs and do not reflect any compromise in the patient's medical care. Please read the chart carefully and recognize, using context, where these substitutions have occurred. Plan discussed with: Patient, Other Date of Service: Jun 13, 2024 Billing Provider: CUONG PINTO Cardiology Common Codes: 21151-ACHIFJBNAA INP/OBS CARE(Mod) CUONG PINTO DAIRY PROCESSING SUPERVISOR Jun 13, 2024 16:42
[2024-06-13 18:22] LABS: Urine Bacteria None Seen /hpf (None Seen)
[2024-06-13 18:50] LABS: Urine Blood TRACE /uL (Negative); Urine Clarity Clear (Clear); Urine Color Light-Yellow (Yellow); Urine Hyaline Cast FEW /lpf (0 - 2); Urine Protein, UAD 2+ (Negative); Urine Specific Gravity 1.022 (1.001-1.035); Urine Squamous Epithelial Cell FEW /hpf (<5); Urine Urobilinogen Normal (Negative); Urine WBC 2 /HPF (0-5)
[2024-06-13 18:55] LABS: Creatinine, Urine 115.56 mg/dL (30.0-125.0)
[2024-06-13 18:58] LABS: Urine Protein/Creatinine Ratio 2.75
[2024-06-13 19:01] LABS: Protein, Urine 318.3 mg/dL (1-14)
[2024-06-14] VITALS (7 sets, daily range): BP systolic 122–136; BP diastolic 51–72; PULSE 65–80; RESP 17–20; TEMP 97.7–98.3; O2SAT 95–99
--- NOTE | 2024-06-14 13:36 | DVHDS2 ---
Discharge Summary Date of Admission Jun 11, 2024 at 11:34 Date of Discharge: Jun 14, 2024 Admitting Diagnosis Chest pain Labs/Diagnostic Data: Laboratory Results Test 06/13/24 21:37 06/13/24 17:06 06/12/24 18:03 06/12/24 04:55 POC Glucose 272 mg/dl (70-106) Urine Color Light-yellow (Yellow) Urine Clarity Clear (Clear) Urine pH 6.0 (5.0-9.0) Urine Specific [place] 1.022 (1.001-1.035) Urine Protein 2+ (Negative) Urine Ketones Negative (Negative) Urine Blood Trace /uL (Negative) Urine Nitrite Negative (Negative) Urine Bilirubin Negative (Negative) Urine Urobilinogen Normal mg/dL (Negative) Urine Leukocyte Esterase Negative /uL (Negative) Urine RBC 1 /hpf (0 - 4) Urine Microscopic WBC 2 /HPF (0-5) Urine Squamous Epithelial Cells Few /hpf (<5) Urine Bacteria None seen /hpf (None Seen) Urine Hyaline Casts Few /lpf (0 - 2) Urine Creatinine 115.56 mg/dL (30.0-125.0) Urine Protein/Creatinine Ratio 2.75 Urine Sodium 205 mmol/L (40-220) Urine Glucose 1+ mg/dL (Normal) Urine Total Protein 318.3 mg/dL (1-14) Phosphorus Level 2.7 mg/dL (2.4-5.1) Magnesium Level 2.0 mg/dL (1.6-2.6) Vitamin D 25-Hydroxy 34.3 ng/mL (30.0-100) Parathyroid Hormone (Intact) 76.6 pg/mL (18.4-80.1) White Blood Count 4.0 10^3/uL (4.4-10.8) Red Blood Count 4.03 10^6/uL (4.0-5.20) Hemoglobin 12.6 g/dL (12.2-16.2) Hematocrit 36.7 % (36.0-46.0) Mean Corpuscular Volume 91.2 fL (80.0-100.0) Mean Corpuscular Hemoglobin 31.3 pg (28.0-32.0) Mean Corpuscular Hemoglobin Concent 34.3 g/dL (32.0-36.0) Red Cell Distribution Width 13.8 % (11.8-14.3) Platelet Count 152 10^3/uL (140-450) Mean Platelet Volume 10.3 fL (6.9-10.8) Neutrophils (%) (Auto) 52.8 % (37.0-80.0) Lymphocytes (%) (Auto) 24.6 % (10.0-50.0) Monocytes (%) (Auto) 13.4 % (0.0-12.0) Eosinophils (%) (Auto) 8.1 % (0.0-7.0) Basophils (%) (Auto) 1.1 % (0.0-2.0) Neutrophils # (Auto) 2.1 10 ^3/uL (1.6-8.6) Lymphocytes # (Auto) 1.0 10 ^3/uL (0.4-5.4) Monocytes # (Auto) 0.5 10 ^3/uL (0-1.3) Eosinophils # (Auto) 0.3 10 ^3/uL (0-0.8) Basophils # (Auto) 0 10 ^3/uL (0-0.2) Nucleated Red Blood Cells 0.3 % Sodium Level 139 mmol/L (136-145) Potassium Level 4.1 mmol/L (3.5-5.1) Chloride Level 108 mmol/L (98-107) Carbon Dioxide Level 23 mmol/L (20-31) Anion Gap 8 (5-15) Blood Urea Nitrogen 22 mg/dL (9-23) Creatinine 1.72 mg/dL (0.550-1.02) Glomerular Filtration Rate Calc 32 mL/min (>90) BUN/Creatinine Ratio 12.8 (10.0-20.0) Serum Glucose 156 mg/dL (74-106) Calcium Level 8.8 mg/dL (8.7-10.4) Total Bilirubin 0.9 mg/dL (0.2-1.0) Aspartate Amino Transferase (AST) 181 U/L (13-40) Alanine Aminotransferase (ALT) 115 U/L (7-40) Alkaline Phosphatase 126 U/L (46-116) B-Type Natriuretic Peptide 93.44 pg/mL (0-100) Total Protein 5.9 g/dL (5.7-8.2) Albumin 3.5 g/dL (3.2-4.8) Test 06/11/24 08:10 4/6/25 05:10 Troponin I High Sensitivity 3 ng/L (</=34) Hemoglobin A1c 6.9 % A1C (<5.7) Triglycerides Level 90 mg/dL (< 150) Cholesterol Level 151 mg/dL (< 200) LDL Cholesterol 82 mg/dL (< 100) HDL Cholesterol 54 mg/dL (40-59) Lipase 35 U/L (12-53) Other Laboratory Tests 06/12/24 04:55 Brief Hx & Hospital Course: History of Present Illness This 68-year-old female with past medical history of hypertension, diabetes, hyperlipidemia, asthma, obesity, CKD, and restless leg syndrome presents in the ED via EMS with a chief complaint of chest pain. The patient reports chest pressure pain lasted about an hour, radiating to epigastric area, and is associated with shortness of breath nausea, vomiting started yesterday. The patient reports undergone a nuclear test few years ago with normal findings. Denies diaphoresis, syncope, dyspnea on exertion, or edema. Course of hospitalization: Cardiology consultation was obtained. Patient underwent cardiac stress test which was negative for any acute ischemic changes. Troponins were negative x3. EKG had no changes. Patient has been cleared for discharge. Physical examination General: Alert and Oriented x3. No acute distress. Well-nourished. Obese Eyes: EOMI. Anicteric. HENT: Moist mucous membranes. Lungs: Clear to auscultation bilaterally. No accessory muscle use. Cardiovascular: Regular rate and rhythm. No murmur. No JVD. Abdomen: Soft, non-tender and non-distended. No palpable masses. Extremities: No edema. Non-tender. Skin: No rashes or lesions. Warm. Neurologic: No focal neurological deficits. CN II-XII grossly intact, but not individually tested. Psychiatric: Cooperative. Appropriate mood and affect. Total time spent with patient discussing and formulating plan of care: 35 minutes. This medical document was created using an electronic medical record system with [employer] dictation system. Although this document has been carefully reviewed, there may still be some phonetic and typographical errors. These areas are purely typographical due to imperfections of the software programs, and do not reflect any compromise in the patient's medical care. Consults/Reason for consult Cardiology: Rule out ACS Condition at Discharge: Fair Final Diagnosis/Problems List Chest pain, ACS ruled out Secondary diagnosis: -obesity -chronic kidney disease 3A -diabetes mellitus -ventral hernia -degenerative joint disease of right knee -transaminitis Discharge Disposition: Home Discharge Instruct/Medications Diet: Consistent carbohydrate, Cardiac 2g Na,low cholest Activity: No Restrictions, As Tolerated Follow Up/Referral: PCP in 1-2 weeks Medications: continue all home medications 36 Discharge Statement: "Patient was advised to return to the ER or call 911 if any headaches, dizziness, shortness of breath, chest pain, abdominal pain, bleeding, fevers, or worsening of medical condition. Patient was counseled about treatment plan, medications, possible side effects, patientverbalized understanding. All questions were answered to the best of my ability. This discharge took greater then 30 minutes in planning, reviewing documentation, counseling the patient, and discussing with other team members." ASSESSMENT ASSESSMENT Assessment Chest pain, ACS ruled out Date of Service: Jun 14, 2024 Billing Provider: SONIA BRANCH NP Common Visit Codes: 95623-OYO/OBS DISCH DAY >30min SONIA BRANCH NP Jun 14, 2024 13:36
--- NOTE | 2024-06-14 14:39 | DVHPN2 ---
Progress Note Date Seen: Jun 14, 2024 Resident Creating Document: EVIE HU RESIDENT Medical Necessity Reason Pt with a Central, PICC or Fol: No Subjective Review of Systems Patient seen and examined at bedside, reports feeling improved. No acute complaints at this time. Patient with chronic kidney disease currently at baseline renal function without signs of acute decompensation or new symptoms, clinically stable and improving. Continue current management no acute intervention required, outpatient Nephrology follow-up recommended within 2 weeks. Patient reports: No new complaints Review of Systems: HEENT:Normal, CVS:Normal, RESPIRATORY:Normal, GI:Normal, :Normal, MSK:Normal, NEURO:Normal Other Systems: Patient seen and examined by myself today on rounds with the medicine resident, I agree with his assessment and plan Objective vital signs Vital Sign Date Time Temp Pulse Resp B/P (MAP) Pulse Ox O2 Delivery O2 Flow Rate FiO2 06/14/24 13:00 98.0 68 17 135/57 (83) 95 98.0 06/14/24 10:00 Room Air 06/14/24 10:00 0 21 Total Intake and Output 06/13/24 06/13/24 06/14/24 15:00 23:00 07:00 Intake Total 1900 ml 1350 ml Balance 1900 ml 1350 ml medications Current Medications Medications Dose Ordered Sig/Pippa Route Start Time Stop Time Status Last Admin Dose Admin Aspirin 81 mg DAILY PO 06/12/24 10:00 06/14/24 09:24 81 MG Clonidine HCl 0.1 mg QPM PO 06/11/24 18:00 06/13/24 17:44 0.1 MG Nifedipine 60 mg DAILY PO 06/12/24 10:00 06/14/24 09:24 60 MG Patient Own Medication 0.5 mg HS PO 06/11/24 22:00 Atorvastatin Calcium 10 mg HS PO 06/11/24 22:00 06/13/24 21:33 10 MG Lactulose 30 ml BIDPRN PRN PO 06/11/24 11:45 Sodium Chloride 1,000 ml @ 75 mls/hr [id number] IV 06/11/24 11:45 06/14/24 00:34 75 MLS/HR Diagnostic Test (Pha) 1 strip ACHS 06/11/24 17:00 06/14/24 06:36 1 STRIP Insulin Human Regular ACHS SC 06/11/24 17:00 06/14/24 06:39 2 UNITS Dextrose 50 ml UD PRN IV 06/11/24 11:45 Albuterol 2.5 mg Q4HPRN PRN NEB 06/11/24 11:45 Cancel Acetaminophen/ Hydrocodone Bitart 1 tab Q4HP PRN PO 06/11/24 11:45 06/14/24 06:45 1 TAB Ondansetron HCl 4 mg Q4HP PRN IV 06/11/24 11:45 Acetaminophen 650 mg Q6HP PRN PO 06/11/24 11:45 06/12/24 06:41 650 MG Nitroglycerin 0.4 mg Q5MINP PRN SL 06/11/24 11:45 Morphine Sulfate 2 mg Q30M PRN IV 06/11/24 11:45 Hold Enoxaparin Sodium 40 mg DAILY SC 06/13/24 10:00 06/14/24 09:25 40 MG Cyclobenzaprine HCl 5 mg DAILYP PRN PO 06/12/24 21:00 06/13/24 11:39 5 MG Examination: GENERAL:Normal, HEENT:Normal, NECK:Normal, LUNGS:Normal, CVS:Normal, ABDOMEN:Normal, MSK:Normal, SKIN:Normal, NEURO:Normal, :Normal laboratory and microbiology Laboratory Tests 06/12/24 04:55 Test 06/12/24 04:55 Range/Units Serum Glucose 156 H 74-106 mg/dL Microbiology Date/Time Source Procedure Growth Status 06/11/24 17:20 Nose MRSA Screen - Final Complete Problem List/Assessment/Plan Problem List/Assessment/Plan Assessment : Acute kidney injury on chronic kidney disease stage 4 likely prerenal due to volume depletion. Type 2 diabetes Hypertension Mild hyperchloremia Transaminitis Symptomatic bradycardia Restless leg syndrome Plan: Outpatient Nephrology referral recommended for long-term CKD care within 2 weeks after discharge with Dr. Royal Educate patient has CKD and diet: 2 g sodium restriction. Thank you for letting us participate in this case, there is no further workup indicated at this time, we are signing off. Case discussed with Dr. Royal Goals of care discussed with the patient for 23 minutes Code status: Full code Plan discussed with: Patient EVIE HU RESIDENT Jun 14, 2024 14:39 MEAGAN ROYAL MD Jun 14, 2024 17:09
== END 2024-06-14 14:05 | disposition home or self-care (01) | DRG 313 ==
LOC: EDBD 04:57 → ER 04:57 → OVERFLOW 11:34 → TELE-EAST 14:07
PROVIDERS: ADMIT Nurse Practitioner Acute Care; ATTEND Nurse Practitioner Acute Care
DX: R07.89 Other chest pain (principal); N17.9 Acute kidney failure, unspecified; N18.4 Chronic kidney disease, stage 4 (severe); I25.10 Atherosclerotic heart disease of native coronary artery without angina pectoris; E78.5 Hyperlipidemia, unspecified; G25.81 Restless legs syndrome; I70.90 Unspecified atherosclerosis; E11.22 Type 2 diabetes mellitus with diabetic chronic kidney disease; I12.9 Hypertensive chronic kidney disease with stage 1 through stage 4 chronic kidney disease, or unspecified chronic kidney disease; J45.909 Unspecified asthma, uncomplicated; K59.00 Constipation, unspecified; K43.9 Ventral hernia without obstruction or gangrene; R74.01 Elevation of levels of liver transaminase levels; E66.01 Morbid (severe) obesity due to excess calories; E87.8 Other disorders of electrolyte and fluid balance, not elsewhere classified; R00.1 Bradycardia, unspecified; E86.9 Volume depletion, unspecified; M17.11 Unilateral primary osteoarthritis, right knee; Z88.5 Allergy status to narcotic agent; Z79.891 Long term (current) use of opiate analgesic; Z79.899 Other long term (current) drug therapy; Z79.1 Long term (current) use of non-steroidal anti-inflammatories (NSAID); Z79.82 Long term (current) use of aspirin; Z98.891 History of uterine scar from previous surgery; Z79.4 Long term (current) use of insulin; Z82.49 Family history of ischemic heart disease and other diseases of the circulatory system; Z83.3 Family history of diabetes mellitus; Z80.7 Family history of other malignant neoplasms of lymphoid, hematopoietic and related tissues; Z68.35 Body mass index [BMI] 35.0-35.9, adult
CPT/HCPCS: 36415; 71045; 74176; 78452; 80053; 80061; 81001; 82306; 82570; 82962; 83036; 83690; 83735; 83880; 83970; 84100; 84156; 84300; 84484; 85025; 87081; 93005; 93017; 93306; 96360; 99291; G0378; J1815

== ENCOUNTER 2024-08-29 00:28 | Emergency (ER) | payer OTHER, MEDICAID ==
[~2024-08-29] VITALS: Ht 152.4 cm; Wt 77.2 kg
[~2024-08-29 00:28] MED LIST changes: -CHOL20007 PO; -CYCL-837 PO; -HYDR1TAB97 PO; -LOSA-534 PO; -MULT1CAP25 PO; -NAP500T PO; -TRI05TP TOP
--- NOTE | 2024-08-29 00:55 | ED.PDOC ---
History of Present Illness HPI Comments 68 y/o obese F is [id number] ambulance for c/o nonradiating, right sided chest pain. Per EMS report, patient endorses on sudden and unprovoked onset of symptoms 30x minute prior to arrival. Pain is sharp and constant in quality. Patient has a history of asthma, CKD, DM with neuropathy, HLD, HTN, and restless leg syndrome. No further significant cardiac history endorsed. Vitals were noted to have been stable and within normal limits. Patient denies having any shortness of breath, palpitations, nausea, vomiting, or further associated symptoms. Chief Complaint: Chest Pain Time Seen by MD: 00:20 Primary Care Provider: MARIAM Reviewed Notes: Nurses Notes, Senior Data Warehouse Developer Notes, Medications, Allergies Allergies: Coded Allergies: Morphine (Verified Allergy, Unknown, 11/29/19) Home Meds Reported Medications Insulin Glargine (Basaglar Kwikpen) 100 Unit/Ml Inj, 25 SC BID for 90 Days, #45 06/13/24 Hydrocodone-Acetaminophen (Hydrocodone/Acetaminophen 10-325 mg) 1 Tab Tab, 1 TAB PO TID for 30 Days, #90 06/13/24 Albuterol Sulfate (Albuterol Sulfate Hfa) 108 Mcg/Act Aer, 2 PUFF INH QID for 75 Days, #54 06/13/24 Insulin Isophane & Reg (Human) (Humulin 70/30 (70-30) 100 Unit/ml) 1 Units/0.01 Ml Inj, 35 UNITS SC BID for 15 Days, #10 06/13/24 Triamcinolone Acetonide (Kenalog) 1 Applic Ap, 1 APPLIC TOP BID for 30 Days, #80 06/13/24 Temazepam (Temazepam) 15 Mg Cap, 1 CAP PO QHSP for 30 Days, #30 06/13/24 Nifedipine (Nifedipine Er) 60 Mg Tab, 1 TAB PO DAILY, #30 TAB 5 Refills 07/23/19 Simvastatin (Simvastatin) 20 Mg Tab, 1 TAB PO QPM, #30 TAB 5 Refills 07/23/19 Clonidine Hydrochloride (Clonidine Hcl) 0.1 Mg Tab, 1 TAB PO QPM, #30 TAB 2 Refills 07/23/19 Ropinirole Hydrochloride (Ropinirole Hcl) 0.5 Mg Tab, 0.5 MG PO HS, TAB 5/17/20 Aspirin (Aspir-81) 81 Mg Tab, 1 TAB PO DAILY, #30 TAB 5 Refills 07/23/19 Information Source: Patient, Emergency Med Personnel Mode of Arrival: EMS Severity: Moderate Timing: Minutes Duration: Since onset Prehospital treatment: 12 Lead EKG, Calenderer Past Medical History PAST MEDICAL HISTORY: Asthma, CKF, DM, High Lipids, HTN Past Medical History (Other): Obesity Restless leg syndrome Surgical History: , Tubal Ligation GROUND WATER CONTRACTOR History: No Pertinent GROUND WATER CONTRACTOR History Family History Family History: Reviewed,noncontributory to illness, Family hx of DM, Family hx of Cancer, Family hx of heart brock Social History Smoker: Non-Smoker Alcohol: Denies ETOH Use Drugs: Denies Drug Use Lives In: Home All Other Systems: Reviewed and Negative (Comprehensive systems review obtained and negative except for what is stated in the HPI.) Physical Exam General Appearance: No Apparent Distress, Obese HEENT: Normal ENT Inspection, Pharynx Normal, TMs Normal Neck: Full Range of Motion, Non-Tender, Normal, Normal Inspection Respiratory: Lungs Clear, No Accessory Muscle Use, No Respiratory Distress, Normal Breath Sounds Cardiovascular: No Edema, No JVD, No Murmur, No Gallop, Normal Peripheral Pulses, Regular Rate/Rhythm Breast Exam: Deferred Gastrointestinal: No Organomegaly, Non Tender, No Pulsatile Mass, Normal Bowel Sounds, Soft Genitalia: Deferred Pelvic: Deferred Rectal: Deferred Extremities: No calf tenderness, Normal capillary refill, Normal inspection, Normal range of motion, Non-tender, No pedal edema Musculoskeletal : Location: Right Extremity Location: Chest Apperance: Normal, Tenderness (Reproducible with palpation) Neurologic: Alert, nutritionalist II-XII nml as Tested, No Motor Deficits, Normal Affect, Normal Mood, No Sensory Deficits Cerebellar Function: Normal Reflexes: Normal Skin: Dry, Normal Color, Warm Lymphatic: No Adenopathy Was a procedure done? Was a procedure done?: No EKG EKG : Pulse Rate (adult): 65 [place]: Normal Cardiac Rhythm: NSR Block: None Hypertrophy: None ST: Normal Differential Dx Considerations may include: ME, PE, ACS, URI, pneumonia, anxiety, angina, costochondritis, pericarditis, gastritis, viral syndrome, among others X-Ray, Labs, Meds, VS Vital Signs Date Time Temp Pulse Resp B/P (MAP) Pulse Ox O2 Delivery O2 Flow Rate FiO2 6/24/25 01:16 68 22 90 Room Air* 0 21 08/29/24 01:16 98.4 68 22 149/55 (86) 90 98.4 08/29/24 01:03 65 08/29/24 00:34 98.2 72 18 157/75 (102) 96 98.2 08/29/24 00:29 65 Lab Test 08/29/24 01:24 08/29/24 01:20 08/29/24 01:13 Range/Units POC Glucose 165 H 70-106 mg/dl Urine Color Light-yellow Yellow Urine Clarity Clear Clear Urine pH 6.0 5.0-9.0 Urine Specific [place] 1.018 1.001-1.035 Urine Protein 2+ H Negative Urine Ketones Negative Negative Urine Blood 2+ H Negative /uL Urine Nitrite Negative Negative Urine Bilirubin Negative Negative Urine Urobilinogen Normal Negative mg/dL Urine Leukocyte Esterase Negative Negative /uL Urine RBC 3 0 - 4 /hpf Urine Microscopic WBC 6 H 0-5 /HPF Urine Squamous Epithelial Cells Few <5 /hpf Urine Bacteria None seen None Seen /hpf Urine Glucose Trace Normal mg/dL White Blood Count 6.4 4.4-10.8 10^3/uL Red Blood Count 4.28 4.0-5.20 10^6/uL Hemoglobin 13.1 12.2-16.2 g/dL Hematocrit 38.6 36.0-46.0 % Mean Corpuscular Volume 90.3 80.0-100.0 fL Mean Corpuscular Hemoglobin 30.6 28.0-32.0 pg Mean Corpuscular Hemoglobin Concent 33.9 32.0-36.0 g/dL Red Cell Distribution Width 13.3 11.8-14.3 % Platelet Count 178 140-450 10^3/uL Mean Platelet Volume 10.4 6.9-10.8 fL Neutrophils (%) (Auto) 83.3 H 37.0-80.0 % Lymphocytes (%) (Auto) 6.4 L 10.0-50.0 % Monocytes (%) (Auto) 8.1 0.0-12.0 % Eosinophils (%) (Auto) 1.5 0.0-7.0 % Basophils (%) (Auto) 0.7 0.0-2.0 % Neutrophils # (Auto) 5.3 1.6-8.6 10 ^3/uL Lymphocytes # (Auto) 0.4 0.4-5.4 10 ^3/uL Monocytes # (Auto) 0.5 0-1.3 10 ^3/uL Eosinophils # (Auto) 0.1 0-0.8 10 ^3/uL Basophils # (Auto) 0 0-0.2 10 ^3/uL Nucleated Red Blood Cells 0.0 % Sodium Level 140 136-145 mmol/L Potassium Level 3.3 L 3.5-5.1 mmol/L Chloride Level 106 98-107 mmol/L Carbon Dioxide Level 23 20-31 mmol/L Anion Gap 11 5-15 Blood Urea Nitrogen 36 H 9-23 mg/dL Creatinine 1.94 H 0.550-1.02 mg/dL Glomerular Filtration Rate Calc 28 >90 mL/min BUN/Creatinine Ratio 18.6 10.0-20.0 Serum Glucose 168 H 74-106 mg/dL Calcium Level 8.1 L 8.7-10.4 mg/dL Troponin I High Sensitivity 7 </=34 ng/L Current Medications Medications (Trade) Dose Ordered Sig/Pippa Route Start Time Stop Time Status Last Admin Ondansetron HCl (Zofran) 4 mg ONCE ONCE IV 08/29/24 00:45 08/29/24 00:46 DC 08/29/24 01:19 Ketorolac Tromethamine (Toradol Injection) 30 mg ONCE ONCE IM 08/29/24 00:45 08/29/24 00:46 DC 08/29/24 00:59 X-Ray, Labs, Meds, VS Comment Imaging: X-rays and CT scans were reviewed and interpreted by this provider, imaging shows no fractures and no pathological disease. Pending radiology review. Laboratory: Labs reviewed and interpreted by this provider. No significant abnormalities noted. Patient has prior medical visits reviewed. Med reconciliation performed Vital signs reviewed Time of 1ST Reevaluation: 00:50 Reevaluation 1ST: Unchanged Patient Education/Counseling: Diagnosis, Treatment, Need For Follow Up (Follow up with PCP next available appointment. Return to the emergency department if symptoms worsen.) Family Education/Counseling: No Family Present Additional Information Previous visits reviewed: June 08 2023 and June 11, 2024 encounters for unstable angina and chest pain to rule out ACS, respectively The following tests were ordered, and results were reviewed by me: EKG, troponin, chest x-ray, BMP, CBC Additional Information was gathered from interviewing the following independent historians: EMS I reviewed and agreed with the following test results read by other providers: Chest x-ray I discussed treatment and results with medical personnel and: patient SEPSIS Sepsis Screen Date sepsis recognized/suspect: Aug 29, 2024 Time Sepsis recognized/suspect: 003 Recent Procedure: No On Antibiotic Therapy: No Respiratory Rate >20: No Heart Rate >90: No Temp<36 C (96.8 F) or >38.3 C: No SBP <90 or MAP <65 mmHG: No New Acute Mental Status Change: No Is the patient on CPAP, BIPAP,: No Physician Orders Chest Xray 1 View (08/29/24 00:34) Troponin-I Hs (08/29/24 01:34) Troponin-I Hs (08/29/24 03:34) Electrocardigram (08/29/24 00:49) Vital Signs Date Time Temp Pulse Resp B/P (MAP) Pulse Ox O2 Delivery O2 Flow Rate FiO2 08/29/24 01:16 68 22 90 Room Air* 0 21 08/29/24 01:16 98.4 68 22 149/55 (86) 90 98.4 08/29/24 01:03 65 08/29/24 00:34 98.2 72 18 157/75 (102) 96 98.2 08/29/24 00:29 65 Laboratory Tests Test 08/29/24 01:13 White Blood Count 6.4 10^3/uL (4.4-10.8) Medications Medications Dose Ordered Sig/Pippa Route Start Time Stop Time Status Last Admin Dose Admin Ketorolac Tromethamine 30 mg ONCE ONCE IM 08/29/24 00:45 08/29/24 00:46 DC 08/29/24 00:59 Ondansetron HCl 4 mg ONCE ONCE IV 08/29/24 00:45 08/29/24 00:46 DC 08/29/24 01:19 Departure 1 Departure Time of Disposition: 02:48 Impression: Primary Impression: Acute chest pain Disposition: 01 HOME / SELF CARE / HOMELESS Condition: Fair Discharged With: Self Critical Care Note Critical Care Time?: No Stability Stability form required: No Heart Score Heart Score: Heart Score Response (Comments) Value History Slightly Suspicious 0 EKG Normal 0 Age >65 2 Risk Factors 1 or 2 risk factors 1 Troponin Normal limit 0 Total 3 I personally scribed for GLORIA HOWARD CONTROL PANEL OPERATOR ([email or web address]) on 08/29/24 at 00:55. Electronically submitted by eDrik Chirinos ([email or web address]). I personally scribed for GLORIA HOWARD CONTROL PANEL OPERATOR ([email or web address]) on 08/29/24 at 01:03. Electronically submitted by Derik Chirinos ([email or web address]). GLORIA HOWARD Aug 29, 2024 00:55
[2024-08-29] MEDS: KETOROLAC TROMETH 30 MG/ML 1ML VIAL IM ONE (00:59)
[2024-08-29 01:16] VITALS: PULSE 68; RESP 22; TEMP 98.4; O2SAT 90
[2024-08-29] MEDS: ONDANSETRON HCL 4 MG/2 ML VIAL IV ONE (01:19)
[2024-08-29 01:32] LABS: Basophils # (auto) 0 10 ^3/uL (0-0.2); Basophils % (auto) 0.7 % (0.0-2.0); Eosinophils # (auto) 0.1 10 ^3/uL (0-0.8); Eosinophils % (auto) 1.5 % (0.0-7.0); Hematocrit 38.6 % (36.0-46.0); Hemoglobin 13.1 g/dL (12.2-16.2); Lymphocytes # (auto) 0.4 10 ^3/uL (0.4-5.4); Lymphocytes % (auto) 6.4 % (10.0-50.0); Mean Corpuscular Hemoglobin 30.6 pg (28.0-32.0); Mean Corpuscular Hgb Conc. 33.9 g/dL (32.0-36.0); Mean Corpuscular Volume 90.3 fL (80.0-100.0); Monocytes # (auto) 0.5 10 ^3/uL (0-1.3); Monocytes % (auto) 8.1 % (0.0-12.0); Neutrophils # (auto) 5.3 10 ^3/uL (1.6-8.6); Neutrophils % (auto) 83.3 % (37.0-80.0); Platelet Count (auto) 178 10^3/uL (140-450); Red Blood Cells 4.28 10^6/uL (4.0-5.20); Red Cell Distribution Width 13.3 % (11.8-14.3); White Blood Cell 6.4 10^3/uL (4.4-10.8)
[2024-08-29 01:37] LABS: Urine Bacteria None Seen /hpf (None Seen)
[2024-08-29 01:40] LABS: Chloride 106 mmol/L (98-107); Sodium 140 mmol/L (136-145)
[2024-08-29 01:41] LABS: Anion Gap 11 (5-15); Carbon Dioxide 23 mmol/L (20-31)
[2024-08-29 01:42] LABS: Calcium 8.1 mg/dL (8.7-10.4); Potassium 3.3 mmol/L (3.5-5.1)
[2024-08-29 01:46] LABS: BUN/Creatinine Ratio 18.6 (10.0-20.0); Blood Urea Nitrogen 36 mg/dL (9-23); Glucose 168 mg/dL (74-106)
[2024-08-29 01:46] LABS: Urine Blood 2+ /uL (Negative); Urine Clarity Clear (Clear); Urine Color Light-Yellow (Yellow); Urine Protein, UAD 2+ (Negative); Urine Specific Gravity 1.018 (1.001-1.035); Urine Squamous Epithelial Cell FEW /hpf (<5); Urine Urobilinogen Normal (Negative); Urine WBC 6 /HPF (0-5)
--- NOTE | 2024-08-29 02:33 | DVH ---
CHEST RADIOGRAPH Indication: cp Technique: Single frontal view of the chest was obtained COMPARISON: XY CHEST PORTABLE on DOS: 06/11/24, XY CHEST XRAY 1 VIEW on DOS: 06/07/23, XY CHEST PORTABLE on DOS: 09/04/22, XY CHEST PORTABLE on DOS: 08/19/22, XY CHEST PORTABLE on DOS: 08/17/22 FINDINGS: Lines and Tubes: None Lungs: Grossly clear. The patient's hand overlies the left lower chest wall and lung base. Pleura: No effusion. No pneumothorax. Cardiomediastinal contours: Unremarkable Bones: Unremarkable IMPRESSION: 1. No acute disease.
--- NOTE | 2024-08-29 03:05 | ECG ---
[facility] Test Date: 2024-08-29 Test Time: 00:29:40 Pat Name: ARMANDO HONEYCUTT Department: ED Room: Gender: F Blemish Remover: NEGRITA : 1955 Requested By: GLORIA HOWARD Order Number: [id number] Reading MD: Lonnie Calvert Measurements Intervals [place] Rate: 65 P: 61 [place]: 154 QRS: 70 QRSD: 86 T: 86 QT: 430 QTc: 448 Interpretive Statements Sinus rhythm Borderline T wave abnormalities Electronically Signed On 08-29-2024 22:56:43 PDT by Lonnie Calvert Please click the below link to view image of tracing.
[2024-08-29 04:00] VITALS: BP 148/56; PULSE 59; RESP 13; O2SAT 97
== END 2024-08-29 04:48 | disposition home or self-care (01) ==
LOC: EDBD 00:28 → ER 00:28
DX: R07.89 Other chest pain (principal); I12.9 Hypertensive chronic kidney disease with stage 1 through stage 4 chronic kidney disease, or unspecified chronic kidney disease; E11.22 Type 2 diabetes mellitus with diabetic chronic kidney disease; N18.9 Chronic kidney disease, unspecified; E78.5 Hyperlipidemia, unspecified; G25.81 Restless legs syndrome; J45.909 Unspecified asthma, uncomplicated; Z79.82 Long term (current) use of aspirin; Z79.899 Other long term (current) drug therapy; Z98.51 Tubal ligation status; Z88.5 Allergy status to narcotic agent
CPT/HCPCS: 36415; 71045; 80048; 81001; 82947; 84484; 85025; 93005; 96372; 96374; 99285; J1885; J2405; 82962

== ENCOUNTER 2024-09-04 00:38 | Emergency (ER) | payer OTHER, MEDICAID ==
[~2024-09-04] VITALS: Ht 152.4 cm; Wt 100.0 kg
--- NOTE | 2024-09-04 01:04 | ED.PDOC ---
History of present illness HPI Comments 69-year-old female with a history of hypertension and diabetes brought in by EMS from home. Son called EMS out of concern that the patient was not well. EMS reports the patient's son did not have access to her house, so EMS had to forcibly obtain access. When they encountered the patient, she was sitting on the floor, oriented x1. Per son, her baseline is oriented x4. EMS reports Accu-Chek was 23. They administered IV D10 with improvement of the patient's blood glucose to 118 and improvement of patient's mental status to her reported baseline. On arrival to the ED, patient states she some soup today, then took her regular dose of insulin. She denies any recent illness, injury, chest pain, shortness of breath, dizziness, focal weakness or other symptoms. Chief Complaint: Hypoglycemia Time Seen by MD: 00:50 Primary Care Provider: MARIAM History of present illness: Nurses Notes, Pension Examiner Notes, Medications, Allergies Allergies: Coded Allergies: Morphine (Verified Allergy, Unknown, 11/29/19) Home Meds Reported Medications Insulin Glargine (Basaglar Kwikpen) 100 Unit/Ml Inj, 25 SC BID for 90 Days, #45 06/13/24 Hydrocodone-Acetaminophen (Hydrocodone/Acetaminophen 10-325 mg) 1 Tab Tab, 1 TAB PO TID for 30 Days, #90 06/13/24 Albuterol Sulfate (Albuterol Sulfate Hfa) 108 Mcg/Act Aer, 2 PUFF INH QID for 75 Days, #54 06/13/24 Insulin Isophane & Reg (Human) (Humulin 70/30 (70-30) 100 Unit/ml) 1 Units/0.01 Ml Inj, 35 UNITS SC BID for 15 Days, #10 06/13/24 Triamcinolone Acetonide (Kenalog) 1 Applic Ap, 1 APPLIC TOP BID for 30 Days, #80 06/13/24 Temazepam (Temazepam) 15 Mg Cap, 1 CAP PO QHSP for 30 Days, #30 06/13/24 Nifedipine (Nifedipine Er) 60 Mg Tab, 1 TAB PO DAILY, #30 TAB 5 Refills 07/23/19 Simvastatin (Simvastatin) 20 Mg Tab, 1 TAB PO QPM, #30 TAB 5 Refills 07/23/19 Clonidine Hydrochloride (Clonidine Hcl) 0.1 Mg Tab, 1 TAB PO QPM, #30 TAB 2 Refills 07/23/19 Ropinirole Hydrochloride (Ropinirole Hcl) 0.5 Mg Tab, 0.5 MG PO HS, TAB 07/23/19 Aspirin (Aspir-81) 81 Mg Tab, 1 TAB PO DAILY, #30 TAB 5 Refills 07/23/19 Information Source: Patient, Emergency Med Personnel Mode of Arrival: EMS Prehospital treatment: 12 Lead EKG, Accucheck, Crystal Grinder Past Medical History PAST MEDICAL HISTORY: Asthma, CKF, DM, High Lipids, HTN Surgical History: , Tubal Ligation BOILER/CHILLER TECHNICIAN History: No Pertinent BOILER/CHILLER TECHNICIAN History Family History Family History: Reviewed,noncontributory to illness, Family hx of DM, Family hx of Cancer, Family hx of heart brock Social History Smoker: Non-Smoker Alcohol: Denies ETOH Use Drugs: Denies Drug Use Lives In: Home All Other Systems: Reviewed and Negative (Comprehensive systems review obtained and negative except for what is stated in the HPI.) Physical Exam General Appearance: No Apparent Distress, Obese HEENT: PERRL/EOMI, Other (No facial asymmetry. Moist mucous membranes.) Neck: Full Range of Motion, Non-Tender, Normal Inspection, Supple Respiratory: Lungs Clear, No Accessory Muscle Use, No Respiratory Distress, Normal Breath Sounds Cardiovascular: No Edema, No JVD, Regular Rate/Rhythm Breast Exam: Deferred Gastrointestinal: Non Tender, Soft Genitalia: Deferred Pelvic: Deferred Rectal: Deferred Extremities: Normal inspection, Normal range of motion, Non-tender, No pedal edema Neurologic: Alert (Oriented x4), Normal Affect, Normal Mood, Other (No gross focal deficit) Cerebellar Function: NOT DONE Reflexes: NOT DONE Skin: Dry, Normal Color, Warm Lymphatic: NOT DONE Was a procedure done? Was a procedure done?: No EKG EKG : Comments Sinus rhythm, rate 68, normal intervals, normal axis, normal QRS, nonspecific T change. Differential Diagnosis (DM) Differential Diagnosis: Hypoglycemia, UTI, Other (Renal failure) Other Differential Diagnosis Arrhythmia, LA, other infectious process such as pneumonia, among others X-Ray, Labs, Meds, VS Vital Signs Date Time Temp Pulse Resp B/P (MAP) Pulse Ox O2 Delivery O2 Flow Rate FiO2 09/04/24 01:21 97.8 66 15 155/61 (92) 96 97.8 09/04/24 01:21 66 15 96 Room Air* 0 21 09/04/24 01:01 68 09/04/24 00:48 97.7 75 14 161/63 (95) 96 97.7 Lab Test 09/04/24 02:30 09/04/24 02:26 09/04/24 01:10 Range/Units Urine Color Colorless Yellow Urine Clarity Clear Clear Urine pH 6.0 5.0-9.0 Urine Specific [place] 1.006 1.001-1.035 Urine Protein 1+ H Negative Urine Ketones Negative Negative Urine Blood Negative Negative /uL Urine Nitrite Negative Negative Urine Bilirubin Negative Negative Urine Urobilinogen Normal Negative mg/dL Urine Leukocyte Esterase Negative Negative /uL Urine RBC None seen 0 - 4 /hpf Urine Microscopic WBC < 1 0-5 /HPF Urine Squamous Epithelial Cells None seen <5 /hpf Urine Bacteria None seen None Seen /hpf Urine Glucose Normal Normal mg/dL Troponin I High Sensitivity 26 24 </=34 ng/L White Blood Count 5.6 4.4-10.8 10^3/uL Red Blood Count 4.20 4.0-5.20 10^6/uL Hemoglobin 12.8 12.2-16.2 g/dL Hematocrit 38.0 36.0-46.0 % Mean Corpuscular Volume 90.4 80.0-100.0 fL Mean Corpuscular Hemoglobin 30.4 28.0-32.0 pg Mean Corpuscular Hemoglobin Concent 33.6 32.0-36.0 g/dL Red Cell Distribution Width 13.9 11.8-14.3 % Platelet Count 179 140-450 10^3/uL Mean Platelet Volume 9.6 6.9-10.8 fL Neutrophils (%) (Auto) 73.3 37.0-80.0 % Lymphocytes (%) (Auto) 10.1 10.0-50.0 % Monocytes (%) (Auto) 11.9 0.0-12.0 % Eosinophils (%) (Auto) 4.0 0.0-7.0 % Basophils (%) (Auto) 0.7 0.0-2.0 % Neutrophils # (Auto) 4.1 1.6-8.6 10 ^3/uL Lymphocytes # (Auto) 0.6 0.4-5.4 10 ^3/uL Monocytes # (Auto) 0.7 0-1.3 10 ^3/uL Eosinophils # (Auto) 0.2 0-0.8 10 ^3/uL Basophils # (Auto) 0 0-0.2 10 ^3/uL Nucleated Red Blood Cells 0.1 % Sodium Level 143 136-145 mmol/L Potassium Level 2.8 L 3.5-5.1 mmol/L Chloride Level 107 98-107 mmol/L Carbon Dioxide Level 24 20-31 mmol/L Anion Gap 12 5-15 Blood Urea Nitrogen 26 H 9-23 mg/dL Creatinine 1.79 H 0.550-1.02 mg/dL Glomerular Filtration Rate Calc 31 >90 mL/min BUN/Creatinine Ratio 14.5 10.0-20.0 Serum Glucose 98 74-106 mg/dL Calcium Level 8.6 L 8.7-10.4 mg/dL B-Type Natriuretic Peptide 39.62 0-100 pg/mL Current Medications Medications (Trade) Dose Ordered Sig/Pippa Route Start Time Stop Time Status Last Admin Potassium Bicarbonate (Klor-Con/Ef) 50 meq ONCE ONCE PO 09/04/24 02:30 09/04/24 02:31 DC 09/04/24 02:50 Potassium Chloride 100 ml @ 50 mls/hr ONCE ONCE IV 09/04/24 02:30 09/04/24 04:29 09/04/24 02:51 PROCEDURE(s): CXRP - CHEST PORTABLE REASON: hypoglycemia ORDER NUMBER(s): [id number], ACCESSION NUMBER(s): [id number] CHEST RADIOGRAPH Indication: hypoglycemia Technique: Single frontal view of the chest was obtained COMPARISON: XY CHEST XRAY 1 VIEW on DOS: 08/29/24, XY CHEST PORTABLE on DOS: 06/11/24, XY CHEST XRAY 1 VIEW on DOS: 06/07/23, XY CHEST PORTABLE on DOS: 09/04/22, XY CHEST PORTABLE on DOS: 08/19/22 FINDINGS: Lines and Tubes: None Lungs: Clear Pleura: No effusion. No pneumothorax. Cardiomediastinal contours: Unremarkable Bones: Unremarkable IMPRESSION: 1. No acute disease. X-Ray, Labs, Meds, VS Comment 69-year-old female with a history of hypertension, insulin-dependent diabetes, dyslipidemia, CKD and asthma brought in by EMS from home for evaluation of hypoglycemia Vitals remarkable for BP 161/63 Exam unremarkable Rhythm strip independently interpreted by me: Sinus rhythm, rate 68, no ectopy. Chest x-ray unremarkable CBC remarkable, basic metabolic panel remarkable for potassium 2.8. BNP, troponin and UA positive for protein, otherwise unremarkable Patient treated with the following in the ED: Patient was given a sandwich and juice then potassium effervescent 50 mEq p.o., K rider 20 mEq IV Repeat Accu-Chek was 73, and patient remained alert and oriented x4. Hospitalization was considered, however patient had rapid improvement of symptoms with treatment in the ED, and I no longer feel hospitalization is necessary. She is not on oral hypoglycemics. Patient now appears stable for discharge with close outpatient follow-up with her primary physician. Time of 1ST Reevaluation: 01:20 Reevaluation 1ST: Unchanged Patient Education/Counseling: Diagnosis, Treatment Family Education/Counseling: No Family Present SEPSIS Sepsis Screen Date sepsis recognized/suspect: Sep 04, 2024 Time Sepsis recognized/suspect: 39 Recent Procedure: No On Antibiotic Therapy: No Respiratory Rate >20: No Heart Rate >90: No Temp<36 C (96.8 F) or >38.3 C: No SBP <90 or MAP <65 mmHG: No New Acute Mental Status Change: No Is the patient on CPAP, BIPAP,: No Physician Orders Chest Portable (09/04/24 00:55) Electrocardigram (09/04/24 00:55) Potassium Chl 20meq/100ml (09/04/24 02:30) Accucheck (09/04/24 04:07) Vital Signs Date Time Temp Pulse Resp B/P (MAP) Pulse Ox O2 Delivery O2 Flow Rate FiO2 09/04/24 01:21 97.8 66 15 155/61 (92) 96 97.8 09/04/24 01:21 66 15 96 Room Air* 0 21 09/04/24 01:01 68 09/04/24 00:48 97.7 75 14 161/63 (95) 96 97.7 Laboratory Tests Test 09/04/24 01:10 White Blood Count 5.6 10^3/uL (4.4-10.8) Medications Medications Dose Ordered Sig/Pippa Route Start Time Stop Time Status Last Admin Dose Admin Potassium Bicarbonate 50 meq ONCE ONCE PO 09/04/24 02:30 09/04/24 02:31 DC 09/04/24 02:50 Potassium Chloride 100 ml @ 50 mls/hr ONCE ONCE IV 09/04/24 02:30 09/04/24 04:29 09/04/24 02:51 Departure 1 Departure Time of Disposition: 03:19 Impression: Primary Impression: Hypoglycemia Additional Impression: Hypokalemia Disposition: 01 HOME / SELF CARE / HOMELESS Condition: Stable Additional Instructions: Your blood tests a low potassium, but were otherwise unremarkable. We have corrected the potassium in the ED. Your urine test was unremarkable. Check your blood sugar every 2 hours at home with the next 24 hours. Return to ER for persistent or worsening symptoms. Discharged With: Relative Critical Care Note Critical Care Time?: No Stability Stability form required: No Heart Score Heart Score: Heart Score Response (Comments) Value History N/A 0 EKG N/A 0 Age N/A 0 Risk Factors N/A 0 Troponin N/A 0 Total 0 I personally scribed for JUDITH BARRIOS MD ([email or web address]) on 09/04/24 at 01:04. Electronically submitted by Derik Chirinos ([email or web address]). I personally scribed for JUDITH BARRIOS MD ([email or web address]) on 09/04/24 at 02:40. Electronically submitted by Derik Chirinos ([email or web address]). JUDITH BARRIOS MD Sep 04, 2024 01:04
[2024-09-04 01:21] VITALS: PULSE 66; RESP 15; O2SAT 96
--- NOTE | 2024-09-04 01:30 | DVH ---
CHEST RADIOGRAPH Indication: hypoglycemia Technique: Single frontal view of the chest was obtained COMPARISON: XY CHEST XRAY 1 VIEW on DOS: 08/29/24, XY CHEST PORTABLE on DOS: 06/11/24, XY CHEST XRAY 1 V IEW on DOS: 06/07/23, XY CHEST PORTABLE on DOS: 09/04/22, XY CHEST PORTABLE on DOS: 08/19/22 FINDINGS: Lines and Tubes: None Lungs: Clear Pleura: No effusion. No pneumothorax. Cardiomediastinal contours: Unremarkable Bones: Unremarkable IMPRESSION: 1. No acute disease.
[2024-09-04 01:37] LABS: Basophils # (auto) 0 10 ^3/uL (0-0.2); Basophils % (auto) 0.7 % (0.0-2.0); Eosinophils # (auto) 0.2 10 ^3/uL (0-0.8); Hemoglobin 12.8 g/dL (12.2-16.2); Lymphocytes # (auto) 0.6 10 ^3/uL (0.4-5.4); Lymphocytes % (auto) 10.1 % (10.0-50.0); Mean Corpuscular Hemoglobin 30.4 pg (28.0-32.0); Mean Corpuscular Hgb Conc. 33.6 g/dL (32.0-36.0); Mean Corpuscular Volume 90.4 fL (80.0-100.0); Monocytes # (auto) 0.7 10 ^3/uL (0-1.3); Monocytes % (auto) 11.9 % (0.0-12.0); Neutrophils # (auto) 4.1 10 ^3/uL (1.6-8.6); Neutrophils % (auto) 73.3 % (37.0-80.0); Nucleated Red Blood Cells % 0.1 %; Platelet Count (auto) 179 10^3/uL (140-450); Red Cell Distribution Width 13.9 % (11.8-14.3); White Blood Cell 5.6 10^3/uL (4.4-10.8)
[2024-09-04 01:49] LABS: Sodium 143 mmol/L (136-145)
[2024-09-04 01:50] LABS: Anion Gap 12 (5-15); Carbon Dioxide 24 mmol/L (20-31)
[2024-09-04 01:55] LABS: Glucose 98 mg/dL (74-106)
[2024-09-04 01:56] LABS: BUN/Creatinine Ratio 14.5 (10.0-20.0)
[2024-09-04 02:01] LABS: Blood Urea Nitrogen 26 mg/dL (9-23); Calcium 8.6 mg/dL (8.7-10.4); Chloride 107 mmol/L (98-107); Potassium 2.8 mmol/L (3.5-5.1)
[2024-09-04 02:50] LABS: Urine Bacteria None Seen /hpf (None Seen)
[2024-09-04] MEDS: POTASSIUM EFFERVESENT TAB 25 MEQ PO ONE (02:50)
[2024-09-04] MEDS: POTASSIUM CHL 20MEQ/100ML 100 ML IV ONE (02:51)
[2024-09-04 02:59] LABS: Urine Blood Negative /uL (Negative); Urine Clarity Clear (Clear); Urine Color Colorless (Yellow); Urine Protein, UAD 1+ (Negative); Urine Specific Gravity 1.006 (1.001-1.035); Urine Squamous Epithelial Cell None Seen /hpf (<5); Urine Urobilinogen Normal (Negative)
[2024-09-04 03:39] LABS: Urine WBC < 1 /HPF (0-5)
[2024-09-04 04:22] VITALS: BP 173/75; PULSE 67; RESP 13; TEMP 97.7; O2SAT 96
--- NOTE | 2024-09-04 07:17 | ECG ---
[facility] Test Date: 2024-09-04 Test Time: 01:01:35 Pat Name: ARMANDO HONEYCUTT Department: ED Room: Gender: F Instrument Room Technician: : 1955 Requested By: JUDITH KINGSLEY Order Number: [id number] Reading MD: Lonnie Calvert Measurements Intervals [place] Rate: 68 P: 58 [place]: 162 QRS: 69 QRSD: 89 T: 59 QT: 426 QTc: 454 Interpretive Statements Sinus rhythm Low voltage, precordial leads Electronically Signed On 09-08-2024 9:40:10 PDT by Lonnie Calvert Please click the below link to view image of tracing.
[2024-09-05] MEDS ORDERED: DEXTROSE 50% SYRINGE 50 ML IV ONE (15:20)
== END 2024-09-04 12:30 | disposition home or self-care (01) ==
LOC: EDBD 00:38 → ER 00:38
DX: E11.649 Type 2 diabetes mellitus with hypoglycemia without coma (principal); E11.22 Type 2 diabetes mellitus with diabetic chronic kidney disease; I12.9 Hypertensive chronic kidney disease with stage 1 through stage 4 chronic kidney disease, or unspecified chronic kidney disease; N18.9 Chronic kidney disease, unspecified; E87.6 Hypokalemia; R06.2 Wheezing; Z79.82 Long term (current) use of aspirin; Z79.899 Other long term (current) drug therapy; Z98.51 Tubal ligation status; Z98.890 Other specified postprocedural states; Z88.5 Allergy status to narcotic agent
CPT/HCPCS: 36415; 71045; 80048; 81001; 82947; 83880; 84484; 85025; 93005; 96365; 96366; 99285; J3480; 82962

== ENCOUNTER 2024-09-05 12:33 | Inpatient (IN) | payer OTHER, MEDICAID ==
[~2024-09-05] VITALS: Ht 152.4 cm; Wt 87.0 kg
--- NOTE | 2024-09-05 12:50 | ED.PDOC ---
History of Present Illness HPI Comments 69-year-old female brought by paramedics because of altered level of consciousness. Family member found her altered few hours ago. She does have a history of hypertension diabetes. Her sugar when paramedics arrived was 27 she was given glucagon and juice which brought up the blood sugar to normal. Patient states that she is feeling much better. Insists on going home. Denies any other symptoms. Time Seen by MD: 12:35 Reviewed Notes: Nurses Notes, Medications, Allergies Allergies: Coded Allergies: Morphine (Verified Allergy, Unknown, 11/29/19) Home Meds Reported Medications Insulin Glargine (Basaglar Kwikpen) 100 Unit/Ml Inj, 25 SC BID for 90 Days, #45 06/13/24 Hydrocodone-Acetaminophen (Hydrocodone/Acetaminophen 10-325 mg) 1 Tab Tab, 1 TAB PO TID for 30 Days, #90 06/13/24 Albuterol Sulfate (Albuterol Sulfate Hfa) 108 Mcg/Act Aer, 2 PUFF INH QID for 75 Days, #54 06/13/24 Insulin Isophane & Reg (Human) (Humulin 70/30 (70-30) 100 Unit/ml) 1 Units/0.01 Ml Inj, 35 UNITS SC BID for 15 Days, #10 06/13/24 Triamcinolone Acetonide (Kenalog) 1 Applic Ap, 1 APPLIC TOP BID for 30 Days, #80 06/13/24 Temazepam (Temazepam) 15 Mg Cap, 1 CAP PO QHSP for 30 Days, #30 06/13/24 Nifedipine (Nifedipine Er) 60 Mg Tab, 1 TAB PO DAILY, #30 TAB 5 Refills 07/23/19 Simvastatin (Simvastatin) 20 Mg Tab, 1 TAB PO QPM, #30 TAB 5 Refills 07/23/19 Clonidine Hydrochloride (Clonidine Hcl) 0.1 Mg Tab, 1 TAB PO QPM, #30 TAB 2 Refills 07/23/19 Ropinirole Hydrochloride (Ropinirole Hcl) 0.5 Mg Tab, 0.5 MG PO HS, TAB 07/23/19 Aspirin (Aspir-81) 81 Mg Tab, 1 TAB PO DAILY, #30 TAB 5 Refills 07/23/19 Information Source: Patient, Emergency Med Personnel Mode of Arrival: EMS Severity: Moderate Timing: Hours Past Medical History PAST MEDICAL HISTORY: Asthma, CKF, DM, High Lipids, HTN Surgical History: , Tubal Ligation SOCK MENDER History: No Pertinent SOCK MENDER History Family History Family History: Reviewed,noncontributory to illness, Family hx of DM, Family hx of Cancer, Family hx of heart brock Social History Smoker: Non-Smoker Alcohol: Denies ETOH Use Drugs: Denies Drug Use Lives In: Home Constitutional: denies: chills, diaphoresis, fatigue, fever, malaise, sweats, weakness, others EENTM: denies: blurred vision, double vision, ear bleeding, ear discharge, ear drainage, ear pain, ear ringing, eye pain, eye redness, hearing loss, mouth pain, mouth swelling, nasal discharge, nose bleeding, nose congestion, nose pain, photophobia, tearing, throat pain, throat swelling, voice changes, others Respiratory: denies: cough, hemoptysis, orthopnea, SOB at rest, shortness of breath, SOB with excertion, stridor, wheezing, others Cardiovascular: denies: chest pain, dizzy spells, diaphoresis, Dyspnea on exertion, edema, irregular heart beat, left arm pain, lightheadedness, palpitations, PND, syncope, others Gastrointestinal: denies: abdomen distended, abdominal pain, blood streaked bowels, constipated, diarrhea, dysphagia, difficulty swallowing, hematemesis, melena, nausea, poor appetite, poor fluid intake, rectal bleeding, rectal pain, vomiting, others Genitourinary: denies: abnormal vagina bleeding, burning, dyspareunia, dysuria, flank pain, frequency, hematuria, incontinence, pain, , vagina discharge, urgency, others Neurological: denies: dizziness, fainting, headache, left sided numbness, left sided weakness, numbness, paresthesia, pre-existing deficit, right sided numbness, right sided weakness, seizure, speech problems, tingling, tremors, weakness, others Musculoskeletal: denies: back pain, gout, joint pain, joint swelling, muscle pain, muscle stiffness, neck pain, others Integumetry: denies: bruises, change in color, change in hair/nails, dryness, laceration, lesions, lumps, rash, wounds, others Allergic/Immunocompromised: denies: Difficulty Healing, Frequent Infections, Hives, Itching, others Hematologic/Lymphatic: denies: anemia, blood clots, easy bleeding, easy bruising, swollen glands, others Endocrine: denies: excessive hunger, excessive sweating, excessive thirst, excessive urination, flushing, intolerance to cold, intolerance to heat, unexplained weight gain, unexplained weight loss, others Psychiatric: denies: anxiety, bipolar disorder, depression, hopeless, panic disorder, schizophrenia, sleepless, suicidal, others Physical Exam General Appearance: Moderate Distress HEENT: Normal ENT Inspection, Pharynx Normal, TMs Normal Neck: Full Range of Motion, Non-Tender, Normal, Normal Inspection Respiratory: Chest Non-Tender, Lungs Clear, No Accessory Muscle Use, No Respiratory Distress, Normal Breath Sounds Cardiovascular: No Edema, No JVD, No Murmur, No Gallop, Normal Peripheral Pulses, Regular Rate/Rhythm Breast Exam: Deferred Gastrointestinal: No Organomegaly, Non Tender, No Pulsatile Mass, Normal Bowel Sounds, Soft Genitalia: Deferred Pelvic: Deferred Rectal: Deferred Extremities: No calf tenderness, Normal capillary refill, Normal inspection, Normal range of motion, Non-tender, No pedal edema Musculoskeletal : Apperance: Normal Neurologic: Disoriented, No Motor Deficits, No Sensory Deficits Cerebellar Function: NOT DONE Reflexes: NOT DONE Skin: Dry, Normal Color, Warm Peripheral Pulses: 3+ Radial (R), 3+ Radial (L) Lymphatic: No Adenopathy Was a procedure done? Was a procedure done?: No Differential Dx Considerations may include: Diabetes Electrolyte imbalance X-Ray, Labs, Meds, VS Vital Signs Date Time Temp Pulse Resp B/P (MAP) Pulse Ox O2 Delivery O2 Flow Rate FiO2 09/05/24 16:00 98.8 67 20 168/67 (100) 97 98.8 09/05/24 14:11 71 17 171/63 (99) 96 09/05/24 13:42 79 18 97 Room Air* 0 21 09/05/24 13:10 98.6 79 20 150/59 (89) 97 98.6 09/05/24 12:50 98.7 96 18 124/111 (115) 98 98.7 Lab Test 09/05/24 15:51 09/05/24 13:24 Range/Units Urine Color Colorless Yellow Urine Clarity Clear Clear Urine pH 7.0 5.0-9.0 Urine Specific [place] 1.006 1.001-1.035 Urine Protein 1+ H Negative Urine Ketones Negative Negative Urine Blood Negative Negative /uL Urine Nitrite Negative Negative Urine Bilirubin Negative Negative Urine Urobilinogen Normal Negative mg/dL Urine Leukocyte Esterase Negative Negative /uL Urine RBC 1 0 - 4 /hpf Urine Microscopic WBC 1 0-5 /HPF Urine Squamous Epithelial Cells Few <5 /hpf Urine Bacteria None seen None Seen /hpf Urine Glucose 1+ H Normal mg/dL White Blood Count 10.8 # 4.4-10.8 10^3/uL Red Blood Count 4.20 4.0-5.20 10^6/uL Hemoglobin 12.9 12.2-16.2 g/dL Hematocrit 38.0 36.0-46.0 % Mean Corpuscular Volume 90.5 80.0-100.0 fL Mean Corpuscular Hemoglobin 30.8 28.0-32.0 pg Mean Corpuscular Hemoglobin Concent 34.0 32.0-36.0 g/dL Red Cell Distribution Width 14.0 11.8-14.3 % Platelet Count 203 140-450 10^3/uL Mean Platelet Volume 9.7 6.9-10.8 fL Neutrophils (%) (Auto) 87.4 H 37.0-80.0 % Lymphocytes (%) (Auto) 5.1 L 10.0-50.0 % Monocytes (%) (Auto) 6.4 0.0-12.0 % Eosinophils (%) (Auto) 0.6 0.0-7.0 % Basophils (%) (Auto) 0.5 0.0-2.0 % Neutrophils # (Auto) 9.4 H 1.6-8.6 10 ^3/uL Lymphocytes # (Auto) 0.6 0.4-5.4 10 ^3/uL Monocytes # (Auto) 0.7 0-1.3 10 ^3/uL Eosinophils # (Auto) 0.1 0-0.8 10 ^3/uL Basophils # (Auto) 0.1 0-0.2 10 ^3/uL Nucleated Red Blood Cells 0.0 % Sodium Level 143 136-145 mmol/L Potassium Level 3.2 L 3.5-5.1 mmol/L Chloride Level 108 H 98-107 mmol/L Carbon Dioxide Level 26 20-31 mmol/L Anion Gap 9 5-15 Blood Urea Nitrogen 19 9-23 mg/dL Creatinine 1.55 H 0.550-1.02 mg/dL Glomerular Filtration Rate Calc 36 >90 mL/min BUN/Creatinine Ratio 12.3 10.0-20.0 Serum Glucose 108 H 74-106 mg/dL Calcium Level 9.3 8.7-10.4 mg/dL Troponin I High Sensitivity 15 </=34 ng/L Current Medications Medications (Trade) Dose Ordered Sig/Pippa Route Start Time Stop Time Status Last Admin Sodium Chloride 1,000 ml @ 1,000 mls/hr Q1H ONCE IV 09/05/24 13:00 09/05/24 13:59 DC 09/05/24 14:00 Dextrose 50 ml ONCE ONCE IV 09/05/24 15:30 09/05/24 15:31 DC 09/05/24 15:27 Potassium Chloride (Klor-Con Tablet) 40 meq ONCE ONCE PO 09/05/24 15:45 09/05/24 16:09 DC 09/05/24 16:26 Patient slow to answer. States that she is feeling much better. Was hypoglycemic in the field. Vitals stable. Answering questions. No sign of any injury. Unknown why she became hypoglycemic. Blood sugar normalized upon arrival to ER. No sign of any injury. Potassium is low. Was given potassium. Reviewed her previous visit. Explained to the patient. Continue monitoring. She drops her blood sugar. Was given sugar. Time of 1ST Reevaluation: 12:48 Reevaluation 1ST: Unchanged Patient Education/Counseling: Diagnosis, Treatment, Prognosis Family Education/Counseling: No Family Present SEPSIS Sepsis Screen Physician Orders Chest Portable (09/05/24 12:51) Aspirin Tablet (09/06/24 10:00) Atorvastatin (Lipitor) (09/05/24 22:00) Consistent Carb(Ccho)Diabetes (09/05/24 Dinner) Clonidine Hcl Tablet (Catapres Tablet) (09/05/24 15:45) Albuterol Medneb (Ventolin Medneb) (09/05/24 15:45) Amlodipine Tablet (Norvasc Tablet) (09/06/24 10:00) Glucose Blood (Accu-Chek Comfort Curve T (09/05/24 17:00) Insulin R (Human) (Insulin R) (09/05/24 17:00) Dextrose 50% Syringe (09/05/24 15:45) Allergies (09/05/24 15:45) Code Status (09/05/24 15:45) Sodium Chloride Lock (Saline Lock Ns) (09/05/24 22:00) Oxygen Per Hour (09/05/24 15:45) Ondansetron Hcl (Zofran) (09/05/24 15:45) Docusate Sodium Capsule (Colace Capsule) (09/05/24 15:45) Complete Blood Count (09/06/24 04:00) Comprehensive Metabolic Panel (09/06/24 04:00) Condition: Serious (09/05/24 15:45) Acetaminophen Tablet (Tylenol Tablet) (09/05/24 15:45) Bedrest With Bathroom Privileg (09/05/24 15:45) Sequential Compression Device (09/05/24 ) Hydrocodone-Acet 5/325mg Tab ([place] 5/32 (09/05/24 16:15) Vital Signs Date Time Temp Pulse Resp B/P (MAP) Pulse Ox O2 Delivery O2 Flow Rate FiO2 09/05/24 16:00 98.8 67 20 168/67 (100) 97 98.8 09/05/24 14:11 71 17 171/63 (99) 96 09/05/24 13:42 79 18 97 Room Air* 0 21 09/05/24 13:10 98.6 79 20 150/59 (89) 97 98.6 09/05/24 12:50 98.7 96 18 124/111 (115) 98 98.7 Laboratory Tests Test 09/05/24 13:24 White Blood Count 10.8 10^3/uL (4.4-10.8) # Medications Medications Dose Ordered Sig/Pippa Route Start Time Stop Time Status Last Admin Dose Admin Dextrose 50 ml ONCE ONCE IV 09/05/24 15:30 09/05/24 15:31 DC 09/05/24 15:27 Potassium Chloride 40 meq ONCE ONCE PO 09/05/24 15:45 09/05/24 16:09 DC 09/05/24 16:26 Sodium Chloride 1,000 ml @ 1,000 mls/hr Q1H ONCE IV 09/05/24 13:00 09/05/24 13:59 DC 09/05/24 14:00 Departure 1 Departure Time of Disposition: 12:49 Impression: Primary Impression: Metabolic encephalopathy Additional Impressions: HTN (hypertension) Qualified Codes: I10 - Essential (primary) hypertension CHF (congestive heart failure) Qualified Codes: I50.43 - Acute on chronic combined systolic (congestive) and diastolic (congestive) heart failure Disposition: 09 ADMITTED INPATIENT Admit to: Med Surg Condition: Guarded Critical Care Note Critical Care Time?: Yes (90 min-critical care time only) Critical care comment: Monitor blood sugar Stability Stability form required: No Heart Score Heart Score: Heart Score Response (Comments) Value History Slightly Suspicious 0 EKG Normal 0 Age >65 2 Risk Factors >3 or Hx ASHD 2 Troponin Normal limit 0 Total 4 JORDANA HARDIN MD Sep 05, 2024 12:50
--- NOTE | 2024-09-05 13:33 | DVH ---
EXAM: XY CHEST PORTABLE HISTORY: sob COMPARISON: XY CHEST PORTABLE on DOS: 09/04/24, XY CHEST XRAY 1 VIEW on DOS: 08/29/24, XY CHEST PORTABL E on DOS: 06/11/24, XY CHEST XRAY 1 VIEW on DOS: 06/07/23, XY CHEST PORTABLE on DOS: 09/04/22 TECHNIQUE: Portable upright AP view of the chest was performed. FINDINGS: There is mild diffuse interstitial prominence, greater on the right. The heart is not enlarged. There is thoracic spondylosis and dextroscoliosis. IMPRESSION: Mild interstitial prominence due to reactive airways disease or mild CHF. The lungs are otherwise cl ear.
[2024-09-05 13:36] LABS: Hematocrit 38.0 % (36.0-46.0); Hemoglobin 12.9 g/dL (12.2-16.2); Mean Corpuscular Hemoglobin 30.8 pg (28.0-32.0); Mean Corpuscular Volume 90.5 fL (80.0-100.0); Nucleated Red Blood Cells % 0.0 %
[2024-09-05 13:42] VITALS: PULSE 79; RESP 18; O2SAT 97
[2024-09-05 13:42] LABS: Sodium 143 mmol/L (136-145)
[2024-09-05 13:43] LABS: Anion Gap 9 (5-15); Carbon Dioxide 26 mmol/L (20-31)
[2024-09-05 13:44] LABS: Calcium 9.3 mg/dL (8.7-10.4); Chloride 108 mmol/L (98-107); Potassium 3.2 mmol/L (3.5-5.1)
[2024-09-05 13:48] LABS: BUN/Creatinine Ratio 12.3 (10.0-20.0); Blood Urea Nitrogen 19 mg/dL (9-23)
[2024-09-05 13:50] LABS: Glucose 108 mg/dL (74-106)
[2024-09-05] MEDS: SODIUM CHLORIDE 0.9% 1,000 ML IV ONE (14:00)
[2024-09-05] MEDS: DEXTROSE (50%) 50ML SYRG IV ONE (15:27)
[2024-09-05] MEDS ORDERED: ONDANSETRON HCL 4 MG/2 ML VIAL IV PRN (15:45)
[2024-09-05] MEDS ORDERED: DOCUSATE SOD 100 MG CAP PO PRN (15:45)
[2024-09-05] MEDS ORDERED: ACETAMINOPHEN 325 MG TAB PO PRN (15:45)
[2024-09-05] MEDS ORDERED: ALBUTEROL SULF 2.5 MG/0.5ML(0.5%) NEB SOLN NEB PRN (15:45)
[2024-09-05] MEDS ORDERED: HYDROcodone-ACET 5/325MG TAB PO PRN (15:45)
[2024-09-05 16:08] LABS: Urine Protein, UAD 1+ (Negative)
[2024-09-05 16:26] VITALS: BP 168/67; PULSE 66; RESP 18; TEMP 98.8; O2SAT 97
[2024-09-05] MEDS: POTASSIUM CHL 20 Meq TABLET PO ONE (16:26)
[2024-09-05] MEDS: InsuLIN REG 1unit/0.01ml Soln (100units/ml) SC SCH (17:00)
[2024-09-05] MEDS: ACCU-CHEK COMFORT CURVE STRIP VI SCH (17:04)
--- NOTE | 2024-09-05 17:18 | DVHHP2 ---
History of Present Illness Reason for Visit: Metabolic encephalopathy History of Present Illness The patient is a 69-year-old female with past medical history of CKF, DM, hyperlipidemia, asthma, and hypertension who presented to [facility] ED for evaluation of altered level of consciousness. As reported by family me ramirez, patient was found altered and called 911. When EMS arrived on the scene, the patient's blood sugar was 27 and was given glucagon and juice with improved blood sugar at [address] to our facility ED. patient was seen and evaluated in the ED, laboratory data shows WBC 10.8, platelets 203, sodium 143, potassium 3.2, BUN 19, creatinine 1.55, glucose 108, troponin 15, calcium 9.3, blood pressure 171/63 trending down to 150/60, heart rate 72, temperature 98.6 F, O2 saturation 96% on room air. Please see medication orders section in the computer. On my assessment, no diaphoresis, no shortness of breath, no diarrhea, no nausea, no vomiting, no fever, no chills. Patient was admitted for further evaluation and medical management. Past Medical History Asthma, CKF, DM, High Lipids, HTN Past Surgical History , Tubal Ligation Family History Reviewed, noncontributory to the management of this case. Past Social History The patient lives at home, denies smoking, alcohol or illicit drugs abuse. Review of Systems Constitutional: Yes: Weakness; No: Fever, Chills, Sweats, Malaise, Other Eyes: No: Pain, Vision change, Conjunctivae inflammation, Eyelid inflammation, Other, Redness ENT: No: Ear pain, Ear discharge, Nose pain, Nose discharge, Nose congestion, Mouth pain, Mouth swelling, Throat pain, Throat swelling, Other Respiratory: No: Cough, Dry, Shortness of breath, SOB with excertion, Wheezing, Hemoptysis, Pleuritic Pain, Sputum, Wheezing, Other Cardiovascular: No: Chest Pain, Palpitations, Orthopnea, Paroxysmal Noc. Dyspnea, Edema, Lt Headedness, Other Gastrointestinal: No: Nausea, Vomiting, Abdominal Pain, Diarrhea, Constipation, Melena, Hematochezia, Other Genitourinary: No Dysuria, No Frequency, No Incontinence, No Hematuria, No Retention, No Other Musculoskeletal: No: other, neck pain, shoulder pain, arm pain, back pain, hand pain, leg pain, foot pain Skin: No: Rash, Lesions, Jaundice, Bruising, Other Neurological: Other (Altered level of consciousness); No: Weakness, Numbness, Incoordination, Change in speech, Confusion, Seizures Allergies: Coded Allergies: Morphine (Verified Allergy, Unknown, 11/29/19) Medications Current Medications Medications Dose Ordered Sig/Pippa Route Start Time Stop Time Status Last Admin Dose Admin Aspirin 81 mg DAILY PO 09/06/24 10:00 Atorvastatin Calcium 20 mg HS PO 09/05/24 22:00 Clonidine HCl 0.1 mg Q4HP PRN PO 09/05/24 15:45 Albuterol 2.5 mg Q4HPRN PRN NEB 09/05/24 15:45 Amlodipine Besylate 5 mg DAILY PO 09/06/24 10:00 Diagnostic Test (Pha) 1 strip ACHS 09/05/24 17:00 09/05/24 17:04 1 STRIP Insulin Human Regular ACHS SC 09/05/24 17:00 Dextrose 50 ml UD PRN IV 09/05/24 15:45 Sodium Chloride 10 ml Q8HR IV 09/05/24 22:00 Ondansetron HCl 4 mg Q4HP PRN IV 09/05/24 15:45 Docusate Sodium 100 mg BIDPRN PRN PO 09/05/24 15:45 Acetaminophen 650 mg Q6HP PRN PO 09/05/24 15:45 Acetaminophen/ Hydrocodone Bitart 1 tab Q4HP PRN PO 09/05/24 16:15 Exam Vital Signs Vital Signs Date Time Temp Pulse Resp B/P (MAP) Pulse Ox O2 Delivery O2 Flow Rate FiO2 09/05/24 16:26 98.8 66 18 168/67 97 0.0 21 98.8 09/05/24 13:42 Room Air* General Appearance: Alert, Cooperative, No acute distress, Other (Oriented x2) HEENT: Atraumatic, PERRLA, EOMI, Mucous membr. moist/pink Respiratory: Normal air movement Cardiovascular: Regular rate, Normal S1, Normal S2, No murmurs Abdominal: Normal bowel sounds, Soft, No tenderness, No hepatospenomegaly, No masses Extremities: No clubbing, No cyanosis, No edema, Normal pulses, No tenderness/swelling Skin: No rashes, No significant lesion Neuro: Normal speech, Normal tone, Sensation intact, Cranial nerves 3-12 NL, Reflexes 2+, Other (Generalized weakness) Psych/Mental Status: Mental status NL, Mood NL Labs/Xrays Labs Test 09/05/24 15:51 09/05/24 13:24 Range/Units Urine Color Colorless Yellow Urine Clarity Clear Clear Urine pH 7.0 5.0-9.0 Urine Specific [place] 1.006 1.001-1.035 Urine Protein 1+ H Negative Urine Ketones Negative Negative Urine Blood Negative Negative /uL Urine Nitrite Negative Negative Urine Bilirubin Negative Negative Urine Urobilinogen Normal Negative mg/dL Urine Leukocyte Esterase Negative Negative /uL Urine RBC 1 0 - 4 /hpf Urine Microscopic WBC 1 0-5 /HPF Urine Squamous Epithelial Cells Few <5 /hpf Urine Bacteria None seen None Seen /hpf Urine Glucose 1+ H Normal mg/dL White Blood Count 10.8 # 4.4-10.8 10^3/uL Red Blood Count 4.20 4.0-5.20 10^6/uL Hemoglobin 12.9 12.2-16.2 g/dL Hematocrit 38.0 36.0-46.0 % Mean Corpuscular Volume 90.5 80.0-100.0 fL Mean Corpuscular Hemoglobin 30.8 28.0-32.0 pg Mean Corpuscular Hemoglobin Concent 34.0 32.0-36.0 g/dL Red Cell Distribution Width 14.0 11.8-14.3 % Platelet Count 203 140-450 10^3/uL Mean Platelet Volume 9.7 6.9-10.8 fL Neutrophils (%) (Auto) 87.4 H 37.0-80.0 % Lymphocytes (%) (Auto) 5.1 L 10.0-50.0 % Monocytes (%) (Auto) 6.4 0.0-12.0 % Eosinophils (%) (Auto) 0.6 0.0-7.0 % Basophils (%) (Auto) 0.5 0.0-2.0 % Neutrophils # (Auto) 9.4 H 1.6-8.6 10 ^3/uL Lymphocytes # (Auto) 0.6 0.4-5.4 10 ^3/uL Monocytes # (Auto) 0.7 0-1.3 10 ^3/uL Eosinophils # (Auto) 0.1 0-0.8 10 ^3/uL Basophils # (Auto) 0.1 0-0.2 10 ^3/uL Nucleated Red Blood Cells 0.0 % Sodium Level 143 136-145 mmol/L Potassium Level 3.2 L 3.5-5.1 mmol/L Chloride Level 108 H 98-107 mmol/L Carbon Dioxide Level 26 20-31 mmol/L Anion Gap 9 5-15 Blood Urea Nitrogen 19 9-23 mg/dL Creatinine 1.55 H 0.550-1.02 mg/dL Glomerular Filtration Rate Calc 36 >90 mL/min BUN/Creatinine Ratio 12.3 10.0-20.0 Serum Glucose 108 H 74-106 mg/dL Calcium Level 9.3 8.7-10.4 mg/dL Troponin I High Sensitivity 15 </=34 ng/L PATIENT: ARMANDO HONEYCUTT ACCT: [id number] UNIT: [id number] : 1955 LOC: ER ROOM / BED: / AGE / SEX: 69 / F ADM STATUS: REG ER SERVICE 1251 ORDERING PHYSICIAN: JORDANA HARDIN MD PROCEDURE(s): CXRP - CHEST PORTABLE REASON: sob ORDER NUMBER(s): [id number], ACCESSION NUMBER(s): [id number] EXAM: XY CHEST PORTABLE HISTORY: sob COMPARISON: XY CHEST PORTABLE on DOS: 09/04/24, XY CHEST XRAY 1 VIEW on DOS: 08/29/24, XY CHEST PORTABLE on DOS: 06/11/24, XY CHEST XRAY 1 VIEW on DOS: 06/07/23, XY CHEST PORTABLE on DOS: 09/04/22 TECHNIQUE: Portable upright AP view of the chest was performed. FINDINGS: There is mild diffuse interstitial prominence, greater on the right. The heart is not enlarged. There is thoracic spondylosis and dextroscoliosis. IMPRESSION: Mild interstitial prominence due to reactive airways disease or mild CHF. The lungs are otherwise clear. Assessment/Plan Assessment/Plan Metabolic encephalopathy Hypokalemia Acute renal injury Generalized weakness Hypertensive urgency Diabetes mellitus with hypoglycemia Plan 1. Admit to telemetry unit 2. Breathing treatment 3. Pain control management 4. Management of fluids and electrolytes 5. Consultation for hospitalist 6. Diagnostic tests chest x-ray 7. DVT prophylaxis on aspirin 8. Repeat labs CBC, CMP in a.m. 9. Continue with current medical management 10. Treatment plan discussed with patient and RN. Patient verbalized understanding. Plan discussed with: Patient, Other (RN) My Orders Orders - LINDA AQUINO DNP Procedure Category Date Status Time Aspirin Tablet PHA 09/06/24 In Process 10:00 Atorvastatin (Lipitor) PHA 09/05/24 In Process 22:00 Consistent DIET 09/05/24 Transmitted Carb(Ccho)Diabetes Dinner Clonidine Hcl Tablet PHA 09/05/24 In Process (Catapres Tablet) 15:45 Albuterol Medneb PHA 09/05/24 In Process (Ventolin Medneb) 15:45 Amlodipine Tablet PHA 09/06/24 In Process (Norvasc Tablet) 10:00 Glucose Blood PHA 09/05/24 In Process (Accu-Chek Comfort 17:00 Insulin R (Human) PHA 09/05/24 In Process (Insulin R) 17:00 Dextrose 50% Syringe PHA 09/05/24 In Process 15:45 Allergies CAYDEN 09/05/24 In Process 15:45 Code Status CODE 09/05/24 Transmitted 15:45 Sodium Chloride Lock PHA 09/05/24 In Process (Saline Lock Ns) 22:00 Oxygen Per Hour RT 09/05/24 Transmitted 15:45 Ondansetron Hcl PHA 09/05/24 In Process (Zofran) 15:45 Docusate Sodium PHA 09/05/24 In Process Capsule (Colace 15:45 Complete Blood Count LAB 09/06/24 Verified 04:00 Comprehensive LAB 09/06/24 Verified Metabolic Panel 04:00 Condition: Serious CAYDEN 09/05/24 In Process 15:45 Acetaminophen Tablet PHA 09/05/24 In Process (Tylenol Tablet) 15:45 Bedrest With Bathroom CAYDEN 09/05/24 In Process Privileg 15:45 Sequential CAYDEN 09/05/24 In Process Compression Device Hydrocodone-Acet PHA 09/05/24 In Process 5/325mg Tab ([place] 16:15 Problem List: (1) Metabolic encephalopathy (2) Hypokalemia (3) Acute renal injury (4) Generalized weakness (5) Hypertensive urgency (6) Diabetes mellitus with hypoglycemia Date of Service: Sep 05, 2024 Billing Provider: LINDA AQUINO DNP Common Visit Codes: [id number] INP/OBS CARE (HIGH) LINDA AQUINO DNP Sep 05, 2024 17:17
[2024-09-05] MEDS ORDERED: NITROGLYCERIN 0.4 MG SL TAB SL PRN (17:30)
[2024-09-05 18:19] VITALS: O2SAT 95
[2024-09-05 19:35] VITALS: PULSE 59; RESP 12; O2SAT 95
[2024-09-05 21:51] VITALS: BP_SYST 148; BP_DIAS 89; BP_DIAS 99; PULSE 65; RESP 14; RESP 16; TEMP 97.6; O2SAT 97
[2024-09-05] MEDS: SODIUM CHLOR 0.9% PF (SALINE LOCK) 10ML VIAL/SYR IV SCH (23:01)
[2024-09-05] MEDS: ATORVASTATIN 20 MG TAB PO SCH (23:01)
[2024-09-06] VITALS (11 sets, daily range): BP systolic 124–155; BP diastolic 67–83; PULSE 63–89; RESP 16–20; TEMP 97.4–98.6; O2SAT 92–98
[2024-09-06] MEDS: HYDROcodone-ACET 5/325MG TAB PO PRN (00:40)
[2024-09-06 05:33] LABS: Hematocrit 38.9 % (36.0-46.0); Hemoglobin 12.9 g/dL (12.2-16.2); Mean Corpuscular Hemoglobin 30.4 pg (28.0-32.0); Mean Corpuscular Volume 92.1 fL (80.0-100.0); Nucleated Red Blood Cells % 0.0 %
[2024-09-06 05:57] LABS: Alanine Aminotransferase 32 U/L (7-40); Albumin 3.3 g/dL (3.2-4.8); Alkaline Phosphatase 102 U/L (46-116); Anion Gap 8 (5-15); BUN/Creatinine Ratio 10.7 (10.0-20.0); Bilirubin, Total 0.5 mg/dL (0.2-1.0); Blood Urea Nitrogen 16 mg/dL (9-23); Carbon Dioxide 26 mmol/L (20-31); Glucose 106 mg/dL (74-106); Potassium 4.2 mmol/L (3.5-5.1); Sodium 143 mmol/L (136-145)
[2024-09-06 06:02] LABS: Calcium 8.6 mg/dL (8.7-10.4); Chloride 109 mmol/L (98-107); Total Protein 5.5 g/dL (5.7-8.2)
[2024-09-06] MEDS: DEXTROSE (50%) 50ML SYRG IV PRN (06:47)
[2024-09-06] MEDS: D5W 5% 1,000 ML IV SCH (15:00)
--- NOTE | 2024-09-06 15:28 | DVHPN2 ---
Subjective Patient denies any symptoms at this time Reviewed: Care Plan, H&P, Labs, Medications Changes from previous H/P or p: No Changes General: Per HPI Eyes: No Pain, No Vision change, No Conjunctivae inflammation, No Eyelid inflammation, No Other, No Redness ENT: No Ear pain, No Ear discharge, No Nose pain, No Nose discharge, No Nose congestion, No Mouth pain, No Mouth swelling, No Throat pain, No Throat swelling, No Other Cardiovascular: No Chest Pain, No Palpitations, No Orthopnea, No Paroxysmal Noc. Dyspnea, No Edema, No Lt Headedness, No Other Respiratory: No Cough, No Dry, No Shortness of breath, No SOB with excertion, No Wheezing, No Hemoptysis, No Pleuritic Pain, No Sputum, No Other Gastrointestinal: No Nausea, No Vomiting, No Abdominal Pain, No Diarrhea, No Constipation, No Melena, No Hematochezia, No Other Genitourinary: No Dysuria, No Frequency, No Incontinence, No Hematuria, No Retention, No Other Musculoskeletal: No other, No neck pain, No shoulder pain, No arm pain, No back pain, No hand pain, No leg pain, No foot pain Skin: No Rash, No Lesions, No Jaundice, No Bruising, No Other Objective Vitals Vital Signs Date Time Temp Pulse Resp B/P (MAP) Pulse Ox O2 Delivery O2 Flow Rate FiO2 09/06/24 13:00 98.6 68 18 145/71 (95) 97 98.6 09/06/24 10:00 Room Air 0.0 09/06/24 10:00 21 Intake/Output Intake and Output 09/06/24 07:00 Intake Total 1100 ml Balance 1100 ml Intake Oral 100 ml IV Total 1000 ml # Voids 2 # Bowel Movements 1 General Appearance: Alert, Oriented X3, Cooperative, No acute distress HEENT: Atraumatic, PERRLA Cardiovascular: Normal S1, Normal S2 Abdomen: Normal bowel sounds, Soft, No tenderness, No hepatospenomegaly Back: Flank Tenderness, Midline Tenderness Musculoskeletal: Normal sensory function, Normal motor function Skin: Dry, Intact Psych/Mental Status: Mental status NL, Mood NL Medications Current Medications Medications Dose Ordered Sig/Pippa Route Start Time Stop Time Status Last Admin Dose Admin Aspirin 81 mg DAILY PO 09/06/24 10:00 09/06/24 09:50 81 MG Atorvastatin Calcium 20 mg HS PO 7/1/25 22:00 09/05/24 23:01 20 MG Clonidine HCl 0.1 mg Q4HP PRN PO 09/05/24 15:45 Albuterol 2.5 mg Q4HPRN PRN NEB 09/05/24 15:45 Amlodipine Besylate 5 mg DAILY PO 09/06/24 10:00 09/06/24 09:51 5 MG Diagnostic Test (Pha) 1 strip ACHS 09/05/24 17:00 09/06/24 11:37 1 STRIP Insulin Human Regular ACHS SC 09/05/24 17:00 Dextrose 50 ml UD PRN IV 09/05/24 15:45 09/06/24 06:47 50 ML Sodium Chloride 10 ml Q8HR IV 09/05/24 22:00 09/06/24 13:24 10 ML Ondansetron HCl 4 mg Q4HP PRN IV 09/05/24 15:45 Docusate Sodium 100 mg BIDPRN PRN PO 09/05/24 15:45 Acetaminophen 650 mg Q6HP PRN PO 09/05/24 15:45 Acetaminophen/ Hydrocodone Bitart 1 tab Q4HP PRN PO 09/05/24 16:15 09/06/24 00:40 1 TAB Nitroglycerin 0.4 mg Q5MINP PRN SL 09/05/24 17:30 Dextrose 1,000 ml @ 75 mls/hr [id number] IV 09/06/24 15:00 Laboratory Results Laboratory Tests 09/06/24 04:48 Chemistry Test 09/06/24 04:48 Albumin 3.3 g/dL (3.2-4.8) Calcium Level 8.6 mg/dL (8.7-10.4) L Total Protein 5.5 g/dL (5.7-8.2) L LFT Test 09/06/24 04:48 Alanine Aminotransferase (ALT) 32 U/L (7-40) Alkaline Phosphatase 102 U/L (46-116) Aspartate Amino Transferase (AST) 28 U/L (13-40) Total Bilirubin 0.5 mg/dL (0.2-1.0) HgA1c, TSH Test 09/06/24 04:48 Hemoglobin A1c Pending Urinalysis Test 09/05/24 15:51 Urine Color Colorless (Yellow) Urine Clarity Clear (Clear) Urine pH 7.0 (5.0-9.0) Urine Specific [place] 1.006 (1.001-1.035) Urine Protein 1+ (Negative) H Urine Ketones Negative (Negative) Urine Blood Negative /uL (Negative) Urine Nitrite Negative (Negative) Urine Bilirubin Negative (Negative) Urine Urobilinogen Normal mg/dL (Negative) Urine Leukocyte Esterase Negative /uL (Negative) Urine RBC 1 /hpf (0 - 4) Urine Microscopic WBC 1 /HPF (0-5) Urine Squamous Epithelial Cells Few /hpf (<5) Urine Bacteria None seen /hpf (None Seen) Urine Glucose 1+ mg/dL (Normal) H Labs and/or images reviewed: Labs reviewed by me, Image(s) reviewed by me Assessment/Plan Assessment/Plan Impression: -metabolic encephalopathy secondary to hypoglycemia -hypoglycemia -insulin-dependent diabetes mellitus -primary hypertension -obesity -dyslipidemia -asthma Plan: -patient continues to have periods of hypoglycemia. Patient is now alert and oriented x4. -start D5 NS -stop long-acting insulin -regular insulin sliding scale -continue antihypertensives -repeat labs in a.m. Total time spent with patient discussing and formulating plan of care: 35 minutes. This medical document was created using an electronic medical record system with [employer] dictation system. Although this document has been carefully reviewed, there may still be some phonetic and typographical errors. These areas are purely typographical due to imperfections of the software programs, and do not reflect any compromise in the patient's medical care. Plan discussed with: Patient, Other (RN) My Orders Orders - SONIA BRANCH NP Procedure Category Date Status Time Consistent DIET 09/06/24 Transmitted Carb(Ccho)Diabetes Dinner D5w 5% (Dextrose 5%) PHA 09/06/24 In Process 15:00 Basic Metabolic Panel LAB 09/07/24 Verified 04:00 Hemoglobin A1c LAB 09/06/24 In Process 14:58 Date of Service: Sep 06, 2024 Billing Provider: SONIA BRANCH NP Common Visit Codes: [id number] INP/OBS CARE(HIGH) SONIA BRANCH NP Sep 06, 2024 15:28
[2024-09-07] VITALS (8 sets, daily range): BP systolic 140–167; BP diastolic 73–95; PULSE 58–81; RESP 17–19; TEMP 97.7–98.5; O2SAT 94–97
[2024-09-07 06:39] LABS: Potassium 4.6 mmol/L (3.5-5.1); Sodium 142 mmol/L (136-145)
[2024-09-07 06:41] LABS: Anion Gap 8 (5-15); Calcium 8.8 mg/dL (8.7-10.4); Carbon Dioxide 27 mmol/L (20-31)
[2024-09-07 06:46] LABS: BUN/Creatinine Ratio 13.4 (10.0-20.0); Blood Urea Nitrogen 21 mg/dL (9-23)
[2024-09-07 06:53] LABS: Chloride 107 mmol/L (98-107); Glucose 112 mg/dL (74-106)
--- NOTE | 2024-09-07 14:19 | DVHDS2 ---
Discharge Summary Date of Admission Sep 05, 2024 at 17:16 Date of Discharge: Sep 07, 2024 Admitting Diagnosis Metabolic encephalopathy Labs/Diagnostic Data: Laboratory Results Test 09/07/24 11:54 09/07/24 04:41 09/06/24 04:48 09/05/24 15:51 POC Glucose 220 mg/dl (70-106) Sodium Level 142 mmol/L (136-145) Potassium Level 4.6 mmol/L (3.5-5.1) Chloride Level 107 mmol/L (98-107) Carbon Dioxide Level 27 mmol/L (20-31) Anion Gap 8 (5-15) Blood Urea Nitrogen 21 mg/dL (9-23) Creatinine 1.57 mg/dL (0.550-1.02) Glomerular Filtration Rate Calc 36 mL/min (>90) BUN/Creatinine Ratio 13.4 (10.0-20.0) Serum Glucose 112 mg/dL (74-106) Calcium Level 8.8 mg/dL (8.7-10.4) White Blood Count 5.1 10^3/uL (4.4-10.8) Red Blood Count 4.23 10^6/uL (4.0-5.20) Hemoglobin 12.9 g/dL (12.2-16.2) Hematocrit 38.9 % (36.0-46.0) Mean Corpuscular Volume 92.1 fL (80.0-100.0) Mean Corpuscular Hemoglobin 30.4 pg (28.0-32.0) Mean Corpuscular Hemoglobin Concent 33.0 g/dL (32.0-36.0) Red Cell Distribution Width 14.4 % (11.8-14.3) Platelet Count 188 10^3/uL (140-450) Mean Platelet Volume 10.0 fL (6.9-10.8) Neutrophils (%) (Auto) 62.1 % (37.0-80.0) Lymphocytes (%) (Auto) 19.8 % (10.0-50.0) Monocytes (%) (Auto) 12.8 % (0.0-12.0) Eosinophils (%) (Auto) 4.5 % (0.0-7.0) Basophils (%) (Auto) 0.8 % (0.0-2.0) Neutrophils # (Auto) 3.2 10 ^3/uL (1.6-8.6) Lymphocytes # (Auto) 1.0 10 ^3/uL (0.4-5.4) Monocytes # (Auto) 0.7 10 ^3/uL (0-1.3) Eosinophils # (Auto) 0.2 10 ^3/uL (0-0.8) Basophils # (Auto) 0 10 ^3/uL (0-0.2) Nucleated Red Blood Cells 0.0 % Hemoglobin A1c 6.2 % A1C (<5.7) Total Bilirubin 0.5 mg/dL (0.2-1.0) Aspartate Amino Transferase (AST) 28 U/L (13-40) Alanine Aminotransferase (ALT) 32 U/L (7-40) Alkaline Phosphatase 102 U/L (46-116) Total Protein 5.5 g/dL (5.7-8.2) Albumin 3.3 g/dL (3.2-4.8) Urine Color Colorless (Yellow) Urine Clarity Clear (Clear) Urine pH 7.0 (5.0-9.0) Urine Specific [place] 1.006 (1.001-1.035) Urine Protein 1+ (Negative) Urine Ketones Negative (Negative) Urine Blood Negative /uL (Negative) Urine Nitrite Negative (Negative) Urine Bilirubin Negative (Negative) Urine Urobilinogen Normal mg/dL (Negative) Urine Leukocyte Esterase Negative /uL (Negative) Urine RBC 1 /hpf (0 - 4) Urine Microscopic WBC 1 /HPF (0-5) Urine Squamous Epithelial Cells Few /hpf (<5) Urine Bacteria None seen /hpf (None Seen) Urine Glucose 1+ mg/dL (Normal) Test 09/05/24 13:24 Troponin I High Sensitivity 15 ng/L (</=34) B-Type Natriuretic Peptide 34.03 pg/mL (0-100) Other Laboratory Tests 09/07/24 04:41 09/06/24 04:48 Brief Hx & Hospital Course: History of Present Illness The patient is a 69-year-old female with past medical history of CKF, DM, hyperlipidemia, asthma, and hypertension who presented to [facility] ED for evaluation of altered level of consciousness. As reported by family member, patient was found altered and called 911. When EMS arrived on the scene, the patient's blood sugar was 27 and was given glucagon and juice with improved blood sugar at [address] to [address] facility ED. patient was seen and evaluated in the ED, laboratory data shows WBC 10.8, platelets 203, sodium 143, potassium 3.2, BUN 19, creatinine 1.55, glucose 108, troponin 15, calcium 9.3, blood pressure 171/63 trending down to 150/60, heart rate 72, temperature 98.6 F, O2 saturation 96% on room air. Please see medication orders section in the computer. On my assessment, no diaphoresis, no shortness of breath, no diarrhea, no nausea, no vomiting, no fever, no chills. Patient was admitted for further evaluation and medical management. Course of hospitalization: Initial assessment of the patient by myself reveals that she continues to have some altered mental status. Patient was also found to have periods of hypoglycemia. Patient was started on dextrose infusion with holding of all long-acting insulin. Today, the patient is more alert and oriented. Long discussion was made with the patient's home diabetic medications. Apparently, she was recently placed on Basaglar twice a day in conjunction with her 70/30 insulin that she has been taken for the past 28 years according to the patient. At this time she will stop taking the Basaglar, continue with the 35 units of 70 30 insulin twice a day. She will continue checking her blood sugars twice a day, keep a log, and we will follow up with the discharge Clinic in one week with further instructions to be given with the time regarding medications for her diabetes. With respect to her other comorbidities, patient will continue all other medications. Physical exam General: Alert and Oriented x3. No acute distress. Well-nourished. Eyes: EOMI. Anicteric. HENT: Moist mucous membranes. Lungs: Clear to auscultation bilaterally. No accessory muscle use. Cardiovascular: Regular rate and rhythm. No murmur. No JVD. Abdomen: Soft, non-tender and non-distended. No palpable masses. Extremities: No edema. Non-tender. Skin: No rashes or lesions. Warm. Neurologic: No focal neurological deficits. CN II-XII grossly intact, but not individually tested. Psychiatric: Cooperative. Appropriate mood and affect. Total time spent with patient discussing and formulating plan of care: 35 minutes. This medical document was created using an electronic medical record system with [employer] dictation system. Although this document has been carefully reviewed, there may still be some phonetic and typographical errors. These areas are purely typographical due to imperfections of the software programs, and do not reflect any compromise in the patient's medical care. Condition at Discharge: Guarded Final Diagnosis/Problems List Metabolic encephalopathy secondary to hypoglycemia Secondary diagnosis: -metabolic encephalopathy secondary to hypoglycemia -hypoglycemia -insulin-dependent diabetes mellitus -primary hypertension -obesity -dyslipidemia -asthma Discharge Disposition: Home Discharge Instruct/Medications Diet: Consistent carbohydrate Activity: No Restrictions, As Tolerated Follow Up/Referral: Follow up with discharge Clinic in one week Follow up with PCP in 2-3 weeks Medications: Stop taking Basaglar insulin Continue taking 70/30 insulin 35 units twice a day Scheduled Albuterol Sulfate (Albuterol Sulfate Hfa), 2 PUFF INH QID, (Reported) Aspirin (Aspir-81), 1 TAB PO DAILY, (Reported) Clonidine Hydrochloride (Clonidine Hcl), 1 TAB PO QPM, (Reported) Hydrocodone-Acetaminophen (Hydrocodone/Acetaminophen 10-325 mg), 1 TAB PO TID, (Reported) Insulin Glargine (Basaglar Kwikpen), 25 SC BID, (Reported) Insulin Isophane & Reg (Human) (Humulin 70/30 (70-30) 100 Unit/ml), 35 UNITS SC BID, (Reported) Nifedipine (Nifedipine Er), 1 TAB PO DAILY, (Reported) Ropinirole Hydrochloride (Ropinirole Hcl), 0.5 MG PO HS, (Reported) Simvastatin (Simvastatin), 1 TAB PO QPM, (Reported) Temazepam (Temazepam), 1 CAP PO QHSP, (Reported) Triamcinolone Acetonide (Kenalog), 1 APPLIC TOP BID, (Reported) 36 Discharge Statement: "Patient was advised to return to the ER or call 911 if any headaches, dizziness, shortness of breath, chest pain, abdominal pain, bleeding, fevers, or worsening of medical condition. Patient was counseled about treatment plan, medications, possible side effects, patientverbalized understanding. All questions were answered to the best of my ability. This discharge took greater then 30 minutes in planning, reviewing documentation, counseling the patient, and discussing with other team members." ASSESSMENT ASSESSMENT Assessment Metabolic encephalopathy secondary to hypoglycemia Date of Service: Sep 07, 2024 Billing Provider: SALBINO,SCOTT FLYING TEACHER Common Visit Codes: [id number] DISCH DAY >30min SONIA BRANCH FLYING TEACHER Sep 07, 2024 14:19
== END 2024-09-07 15:12 | disposition home or self-care (01) | DRG 637 ==
LOC: ER 12:33 → EDBD 12:33 → OVERFLOW 17:16 → TELE-WESTW 21:36
PROVIDERS: ADMIT Nurse Practitioner Acute Care; ATTEND Nurse Practitioner Acute Care
DX: E11.649 Type 2 diabetes mellitus with hypoglycemia without coma (principal); G93.41 Metabolic encephalopathy; I16.0 Hypertensive urgency; I11.0 Hypertensive heart disease with heart failure; I50.9 Heart failure, unspecified; E66.9 Obesity, unspecified; Z68.37 Body mass index [BMI] 37.0-37.9, adult; J45.909 Unspecified asthma, uncomplicated; N17.9 Acute kidney failure, unspecified; E87.6 Hypokalemia; E78.5 Hyperlipidemia, unspecified; Z79.4 Long term (current) use of insulin; Z88.5 Allergy status to narcotic agent
CPT/HCPCS: 36415; 71045; 80048; 80053; 81001; 82962; 83036; 83880; 84484; 85025; 96361; 96374; 99291; 99292; G0378; J1815; J2405